=== PATIENT | male | born 1940 | race Caucasian/White ===

== ENCOUNTER → 2017-04-10 12:15 | Outpatient (REF) | payer MEDICARE, SELFPAY ==
[2017-04-11 07:21] LABS: Hematocrit 41.6 % (40-54); Mean Corp Hgb Conc 33.7 g/gl (32-36); Mean Corpuscular Hgb 32.6 pg (27.0-32.0); Mean Corpuscular Volume 96.7 fL (80-94); Mean Platelet Vol. 9.9 fl (6.2-12.0); Platelet Count 161 K/mm3 (150-450); RBC Distribution Width CV 12.8 % (11.6-14.6); RBC Distribution Width SD 44.4 fl (35.1-43.9); White Blood Count 6.6 K/mm3 (4.4-11.0)
[2017-04-11 07:22] LABS: Scan Indicated on CBC? Y/N NO
[2017-04-11 07:42] LABS: ALB/GLOB Ratio 1.1 RATIO (0.9-2.4); AST(SGOT) 18 U/L (15-37); Alanine Aminotransfer ALT/SGPT 24 U/L (12-78); Albumin, Serum 3.2 g/dL (3.4-5.0); Alkaline Phosphatase 109 U/L (45-117); Anion Gap 10 (5-15); BUN 11 mg/dL (7-18); BUN/Creat Ratio 10.7 RATIO (10-20); Calcium,Total 9.5 mg/dL (8.5-10.1); Chloride 100 mmol/L (98-107); Creatinine, Serum 1.03 mg/dL (0.70-1.30); EST Glomerular Filtration Rate 74 mL/min (>60); Est Glom Filt Rate - Afr Amer 90 mL/min (>60); Glucose 87 mg/dL (70-110); Potassium 3.6 mmol/L (3.5-5.1); Protein, Total 6.2 g/dL (6.4-8.2); Sodium Level 140 mmol/L (136-145)
[2017-04-11 07:47] LABS: Phenytoin (Dilantin) Level 11.7 mL (10.0-20.0)
== END ==
LOC: OLS.ACH 12:15
PROVIDERS: Visit Provider Family Medicine
DX: R53.1 Weakness (principal); N18.3 Chronic kidney disease, stage 3 (moderate); G40.909 Epilepsy, unspecified, not intractable, without status epilepticus; I12.9 Hypertensive chronic kidney disease with stage 1 through stage 4 chronic kidney disease, or unspecified chronic kidney disease
CPT/HCPCS: 36415; 80053; 80185; 85027

== ENCOUNTER → 2017-05-07 05:00 | Outpatient (REF) | payer MEDICARE, OTHER, SELFPAY ==
[2017-05-07 08:58] LABS: Absolute Lymphocyte Count 1.09 X10^3/ul (0.83-4.51); Absolute Neutrophil Count 2.3 X10^3/uL (2.0-7.7); Basophil# 0.02 X10^3/uL; Basophil% 0.5 % (0-1); Eosinophils% 2.4 % (0-5); Hematocrit 40.4 % (40-54); Hemoglobin 13.5 g/dl (13.0-16.5); Lymphocyte # 1.09 X10^3/ul (4.0); Lymphocyte % 25.8 % (19-41); Mean Corp Hgb Conc 33.4 g/gl (32-36); Mean Corpuscular Hgb 32.4 pg (27.0-32.0); Mean Corpuscular Volume 96.9 fL (80-94); Mean Platelet Vol. 10.1 fl (6.2-12.0); Monocyte# 0.75 X10^3/uL; Monocyte% 17.8 % (0-10); Neutrophil # 2.26 X10^3/uL (2.7-7.7); Neutrophil % 53.5 % (47-70); Platelet Count 132 K/mm3 (150-450); RBC Distribution Width CV 13.1 % (11.6-14.6); RBC Distribution Width SD 45.8 fl (35.1-43.9); Red Blood Count 4.17 M/mm3 (4.6-6.2); White Blood Count 4.2 K/mm3 (4.4-11.0)
[2017-05-07 08:59] LABS: POSITIVE COUNT NO; POSITIVE DIFFERENTIAL NO; POSITIVE MORPHOLOGY NO
[2017-05-07 09:00] LABS: ALB/GLOB Ratio 0.8 RATIO (0.9-2.4); AST(SGOT) 39 U/L (15-37); Alanine Aminotransfer ALT/SGPT 24 U/L (12-78); Albumin, Serum 2.8 g/dL (3.4-5.0); Alkaline Phosphatase 87 U/L (45-117); Anion Gap 8 (5-15); BUN 10 mg/dL (7-18); BUN/Creat Ratio 10.9 RATIO (10-20); Calcium,Total 9.3 mg/dL (8.5-10.1); Chloride 99 mmol/L (98-107); Creatinine, Serum 0.92 mg/dL (0.70-1.30); EST Glomerular Filtration Rate 85 mL/min (>60); Est Glom Filt Rate - Afr Amer 102 mL/min (>60); Globulin 3.4 g/dL (2.2-4.2); Glucose 65 mg/dL (70-110); Potassium 3.4 mmol/L (3.5-5.1); Protein, Total 6.2 g/dL (6.4-8.2); Sodium Level 138 mmol/L (136-145)
== END ==
LOC: OLS.ACH 05:00
PROVIDERS: Visit Provider Family Medicine
DX: Q28.2 Arteriovenous malformation of cerebral vessels (principal)
CPT/HCPCS: 36415; 80053; 85025

== ENCOUNTER → 2017-05-07 16:00 | Outpatient (REF) | payer MEDICARE, SELFPAY | LOC: OLS.ACH 16:00 | PROVIDERS: Visit Provider Family Medicine | DX: R53.81 Other malaise (principal) | CPT/HCPCS: 87804 ==

== ENCOUNTER → 2017-10-08 05:00 | Outpatient (REF) | payer MEDICARE, OTHER, SELFPAY ==
[2017-10-08 08:26] LABS: Hematocrit 41.2 % (40-54); Hemoglobin 13.8 g/dl (13.0-16.5); Mean Corp Hgb Conc 33.5 g/gl (32-36); Mean Corpuscular Hgb 32.8 pg (27.0-32.0); Mean Corpuscular Volume 97.9 fL (80-94); Mean Platelet Vol. 9.8 fl (6.2-12.0); Platelet Count 198 K/mm3 (150-450); RBC Distribution Width CV 13.3 % (11.6-14.6); RBC Distribution Width SD 46.6 fl (35.1-43.9); Red Blood Count 4.21 M/mm3 (4.6-6.2); Scan Indicated on CBC? Y/N NO; White Blood Count 5.6 K/mm3 (4.4-11.0)
[2017-10-08 08:56] LABS: ALB/GLOB Ratio 0.9 RATIO (0.9-2.4); AST(SGOT) 19 U/L (15-37); Alanine Aminotransfer ALT/SGPT 18 U/L (16-61); Alkaline Phosphatase 122 U/L (45-117); Anion Gap 10 (5-15); BUN 19 mg/dL (7-18); BUN/Creat Ratio 16.7 RATIO (10-20); Calcium,Total 9.1 mg/dL (8.5-10.1); Chloride 103 mmol/L (98-107); Creatinine, Serum 1.14 mg/dL (0.70-1.30); EST Glomerular Filtration Rate 66 mL/min (>60); Est Glom Filt Rate - Afr Amer 80 mL/min (>60); Globulin 3.4 g/dL (2.2-4.2); Glucose 88 mg/dL (74-106); Potassium 3.8 mmol/L (3.5-5.1); Protein, Total 6.4 g/dL (6.4-8.2); Sodium Level 143 mmol/L (136-145)
[2017-10-08 09:00] LABS: Phenytoin (Dilantin) Level 9.1 mL (10.0-20.0)
== END ==
LOC: OLS.ACH 05:00
PROVIDERS: Visit Provider Family Medicine
DX: G40.909 Epilepsy, unspecified, not intractable, without status epilepticus (principal); R53.1 Weakness; N18.3 Chronic kidney disease, stage 3 (moderate); I21.9 Acute myocardial infarction, unspecified
CPT/HCPCS: 36415; 80053; 80185; 85027

== ENCOUNTER → 2018-04-08 05:00 | Outpatient (REF) | payer MEDICARE, OTHER, SELFPAY ==
[2018-04-08 07:45] LABS: Hematocrit 38.6 % (40-54); Hemoglobin 13.4 g/dl (13.0-16.5); Mean Corp Hgb Conc 34.7 g/gl (32-36); Mean Corpuscular Hgb 32.4 pg (27.0-32.0); Mean Corpuscular Volume 93.5 fL (80-94); Mean Platelet Vol. 10.4 fl (6.2-12.0); Platelet Count 218 K/mm3 (150-450); RBC Distribution Width CV 12.1 % (11.6-14.6); RBC Distribution Width SD 40.4 fl (35.1-43.9); Red Blood Count 4.13 M/mm3 (4.6-6.2); White Blood Count 6.1 K/mm3 (4.4-11.0)
[2018-04-08 07:48] LABS: Scan Indicated on CBC? Y/N NO
[2018-04-08 08:06] LABS: AST(SGOT) 20 U/L (15-37); Alanine Aminotransfer ALT/SGPT 25 U/L (16-61); Albumin, Serum 3.1 g/dL (3.2-5.0); Alkaline Phosphatase 133 U/L (45-117); Anion Gap 7 (5-15); BUN 12 mg/dL (7-18); BUN/Creat Ratio 13.7 RATIO (10-20); Calcium,Total 8.9 mg/dL (8.5-10.1); Chloride 97 mmol/L (98-107); Creatinine, Serum 0.88 mg/dL (0.70-1.30); EST Glomerular Filtration Rate 89 mL/min (>60); Est Glom Filt Rate - Afr Amer 108 mL/min (>60); Glucose 80 mg/dL (74-106); Potassium 3.4 mmol/L (3.5-5.1); Protein, Total 6.1 g/dL (6.4-8.2); Sodium Level 133 mmol/L (136-145)
[2018-04-08 08:25] LABS: Phenytoin (Dilantin) Level 9.8 mL (10.0-20.0)
[2018-04-10 19:48] LABS: KEPPRA (LEVETIRACETAM) 14.8 ug/mL (10.0-40.0)
== END ==
LOC: OLS.ACH 05:00
PROVIDERS: Visit Provider Family Medicine
DX: G40.909 Epilepsy, unspecified, not intractable, without status epilepticus (principal); R53.1 Weakness; I12.9 Hypertensive chronic kidney disease with stage 1 through stage 4 chronic kidney disease, or unspecified chronic kidney disease; N18.3 Chronic kidney disease, stage 3 (moderate)
CPT/HCPCS: 36415; 80053; 80177; 80185; 85027

== ENCOUNTER → 2018-04-15 05:00 | Outpatient (REF) | payer MEDICARE, OTHER, SELFPAY ==
[2018-04-15 07:56] LABS: Phenytoin (Dilantin) Level 18.2 mL (10.0-20.0)
== END ==
LOC: OLS.ACH 05:00
PROVIDERS: Visit Provider Family Medicine
DX: G40.909 Epilepsy, unspecified, not intractable, without status epilepticus (principal)
CPT/HCPCS: 36415; 80185

== ENCOUNTER 2018-05-13 14:55 | Emergency (ER) | payer MEDICARE, OTHER, MEDICAID, SELFPAY ==
[2018-05-13 14:57] VITALS: BP 162/88; PULSE 81; RESP 17; TEMP 36.1; O2SAT 98; BMI 31.1
--- NOTE | 2018-05-13 15:28 | EKG12_ITS ---
Test Reason : NEURO SYM Blood Pressure : / mmHG Vent. Rate : 073 BPM Atrial Rate : 073 BPM P-R Int : 172 ms QRS Dur : 108 ms QT Int : 392 ms P-R-T Axes : 047 062 054 degrees QTc Int : 431 ms Normal sinus rhythm Normal ECG Confirmed by NILES MONTERO ([id number]), slot editor EUGENIA CASE ([id number]) on 05/27/2018 1:17:56 PM Referred By: MERCEDES Confirmed By:NILES MONTERO
--- NOTE | 2018-05-13 15:28 | CT_ITS ---
STUDY: CT BRAIN WITHOUT CONTRAST REASON FOR EXAM: Male, 78 years old. Weakness RADIATION DOSAGE (If Supplied By Facility): CTDIvol = ( 44.99 ) mGy, DLP = ( 829.85 ) mGycm TECHNIQUE: Transaxial CT imaging of the brain was performed without administration of intravenous contrast material. Individualized dose optimization techniques were used for this CT. COMPARISON: 08/26/2016 FINDINGS: There are stable post surgical changes from a prior craniotomy. 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 There is no acute bleed or infarct. The visualized paranasal sinuses are clear. The mastoid air cells are well aerated. There is no skull fracture. CT/Brain/Head without Contrast IMPRESSION: No acute bleed or infarct. 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 Electronically Signed: Patel Mar, at 17:10 EST Tel , Service support ,
[2018-05-13 15:33] VITALS: O2SAT 98
--- NOTE | 2018-05-13 15:35 | ED.DCSUM_ITS ---
History of Present Illness Chief Complaint: Neuro S/Sx Informant: Patient, Family, SNF Narrative: Patient sent from [facility], nursing report reflects 2 days of worsening weakness in the right lower extremity, there is 0 paperwork sent with the patient indicating any of this, family/ and patient agree that his right lower extremity has been weaker than normal for at least 2 weeks and he has been having double vision off and on for at least a month. She states 3 days ago, he was really having difficulty getting in and out of a vehicle with her. He states he was having trouble walking because of his right lower extremity today, and that is not new. He denies any new symptoms today that he can think of. states she is concerned about his diet and fluid intake recently, and they both agree that he thinks he has felt this way when his Dilantin level was high in the past. His dose was increased about 3 weeks ago because he was having some seizures. He denies having any since then, that he knows of. Denies any recent head injury or pain anywhere. Prior similar symptoms: Yes - Past Medical History (1) BPH (benign prostatic hyperplasia) Status: Chronic (2) Benign essential HTN Status: Chronic (3) Bipolar disorder Status: Chronic (4) CKD (chronic kidney disease), stage III Status: Chronic (5) Encephalomalacia Status: Chronic (6) HLD (hyperlipidemia) Status: Chronic (7) Seizure disorder Status: Chronic (8) status post AVM removed in 1980 Status: Chronic Past Medical History - Allergies and Home Meds Allergies/Adverse Reactions: Allergies No Known Allergies Allergy (Verified 05/13/18 15:03) Primary Care Physician: Steven Mccauley MD [NON-STAFF] - Surgical History: appendectomy, herniorrhaphy, - - 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 Denies: Chills, Fever, Sweats Eyes: Reports: Diplopia - off and on x 1 month or so. Denies: Blurred Vision - bilaterally ENT: Denies: Bilateral ear pain, Rhinorrhea, Sore throat Cardiovascular: Denies: Chest pain, Palpitations, Heart racing Respiratory: Reports: Cough - chronic, unchanged. Denies: Dyspnea, Sputum, Dyspnea on exertion, Orthopnea, Paroxysmal nocturnal dyspnea Gastrointestinal: Denies: Abdominal pain, Nausea, Vomiting, Diarrhea, Melena, Hematochezia Genitourinary: Denies: Dysuria, Hematuria, Frequency Musculoskeletal: Denies: Neck pain, Back pain, Extremity Pain Skin: Denies: Rash, Abscess, Wounds Neurological: Reports: Weakness - RLE acute on chronic, - - slurred speech per x days at least -- unk amt time for sure. Denies: Headache, Parasthesia, Numbness Psych: Denies: Suicidal thoughts, Suicidal ideations Endocrine: Denies: Heat intolerance, Cold intolerance Hematologic: Denies: Easy bruising, Easy bleeding Allergy: Denies: Swelling of the mouth, Swelling of the tongue Physical Exam Vital Signs/Narrative: Vital Signs Temp Pulse Resp BP Pulse Ox 05/13/18 14:57 96.9 F L 81 17 162/88 H 98 Inital Vital Signs reviewed: Yes General: Well nourished, Well developed Head: Normocephalic, Atraumatic Eyes: Perrl, EOMI ENT: Moist mucous membranes, No rhinorrhea Neck: Supple, Nontender, No JVD, - - no carotid bruits Cardiovascular: Regular rate, Regular rhythm, No murmurs Respiratory: No distress, CTA bilaterally, Chest nontender Abdomen: Soft, Nontender, Nondistended, Normal bowel sounds Back: Nontender, Normal Inspection Extremities: Nontender, No edema Skin: Normal color, No rash Neurological: Alert, Oriented x3 - needs help/redirection, but knows it is the 12th month and one day away from [place], of year 18, Cranial nerves II- XII grossly intact - no deficits on detailed CN exam., Normal Sensation, Weakness - drift w/ RLE only; 5/5 strength all 3 other ext's. wearing foot-drop brace on RLE. Psychological: Normal affect Diagnostic/Tx/Re-eval Impressions Brain CT 05/13/18 15:28 IMPRESSION: No acute bleed or infarct. 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 Electronically Signed: Patel Mar, at 17:10 EST Tel , Service support , Chest X-Ray 05/13/18 16:24 IMPRESSION: Normal x-ray examination of the chest. Electronically Signed: Niels CameronDO at 17:19 EST Tel , Service support , 05/13/18 15:28 Brain/Head without Contrast [CT] Stat 05/13/18 16:24 Chest PA and Lateral [RAD] Stat Laboratory Results 05/13/18 05/13/18 05/13/18 15:50 15:50 15:50 WBC 5.9 RBC 4.53 L Hgb 14.6 Hct 43.1 MCV 95.1 H MCH 32.2 H MCHC 33.9 RDW 12.9 RDW Differential 44.9 H Plt Count 200 MPV 9.4 Immature Gran % (Auto) 0.000 Neut % (Auto) 60.3 Lymph % (Auto) 24.4 [place] % (Auto) 13.2 H Eos % (Auto) 1.9 Baso % (Auto) 0.2 Absolute Neuts (auto) 3.6 Absolute Lymphs (auto) 1.44 Total Counted Not Reportable Sodium 134 L Potassium 4.2 Chloride 96 L Carbon Dioxide 30.0 Anion Gap 8 BUN 20 H Creatinine 1.02 Estim Creat Clear Calc 57.75 Est GFR (MDRD) Af Amer 91 Est GFR (MDRD) Non-Af 75 BUN/Creatinine Ratio 19.6 Glucose 103 Calcium 9.9 Total Bilirubin Direct Bilirubin AST ALT Alkaline Phosphatase Troponin I < 0.015 Total Protein Albumin Globulin Urine Color Urine Clarity Urine pH Ur Specific [place] Urine Protein Urine Glucose (UA) Urine Ketones Urine Occult Blood Urine Nitrite Urine Bilirubin Urine Urobilinogen Ur Leukocyte Esterase Urine RBC Urine WBC Ur Squamous Epith Cells Urine Bacteria Urine Mucus Phenytoin 30.9 H* 05/13/18 05/13/18 15:59 18:15 WBC RBC Hgb Hct MCV MCH MCHC RDW RDW Differential Plt Count MPV Immature Gran % (Auto) Neut % (Auto) Lymph % (Auto) [place] % (Auto) Eos % (Auto) Baso % (Auto) Absolute Neuts (auto) Absolute Lymphs (auto) Total Counted Sodium Potassium Chloride Carbon Dioxide Anion Gap BUN Creatinine Estim Creat Clear Calc Est GFR (MDRD) Af Amer Est GFR (MDRD) Non-Af BUN/Creatinine Ratio Glucose Calcium Total Bilirubin 0.30 Direct Bilirubin 0.12 AST 40 H ALT 12 L Alkaline Phosphatase 168 H Troponin I Total Protein 7.4 Albumin 3.6 Globulin 3.8 Urine Color Yellow Urine Clarity Sl. Cloudy Urine pH 6.0 Ur Specific [place] 1.010 Urine Protein Negative Urine Glucose (UA) Normal Urine Ketones Negative Urine Occult Blood 10 H Urine Nitrite Negative Urine Bilirubin Negative Urine Urobilinogen Normal Ur Leukocyte Esterase 500 H Urine RBC 0 SEEN Urine WBC 50-100 SEEN Ur Squamous Epith Cells 0-5 SEEN Urine Bacteria 0 SEEN Urine Mucus 0 SEEN Phenytoin - Rhythm Strip Rhythm Strip: Sinus Rhythm Rate: 75 Ectopy: None - EKG Initial EKG Interpretation: Sinus Rhythm, No Acute Injury Pattern - Medical Decision Making Labs show very high phenytoin level of 30.9, and given the history, is consistent with relatively chronic toxicity as opposed to acute. He has symptoms of this, but does not have any life-threatening complications evident at this time. There have been no dysrhythmias, hemodynamic instability, altered mental status, severe ataxia, coma, or known seizures. Chest x-ray and CT head showed no acute disease. Discussed with neurology Dr. Mosquera. He advised adding a free phenytoin level as well as LFTs. These were sent, the LFTs were okay with very minor elevations that could be unrelated, the free phenytoin level is a send out and will not come back tonight. The patient was stable here. Urine does show infection, so he was given a dose of Rocephin and that was sent for a culture. I discussed with Dr. Henry who will be taken over for the patient, who is okay with him going back and asked that we write an order for the repeat labs in 3 days, I also wrote prescriptions for the medication changes that we are doing, per neurology, which include halving the phenytoin dosing which may be restarted after the repeat levels are done in 3 days given that the LFTs look okay, and increasing his Keppra from 500 twice daily to 750 twice daily to help prevent him from having seizures. Also adding cephalexin for his urine infection, which could be causing his symptoms or at least contributing as well. Family is comfortable with this plan and he will be discharged back to the skilled nursing. ED Disposition - Plan for ED Patient: Disposition: Home or Assisted Living Chief Complaint: Neuro S/Sx Diagnosis: Phenytoin toxicity, UTI (urinary tract infection) Instructions: ED UTI Cystitis Male Prescriptions: Cephalexin [Keflex] 500 mg PO Q8 #30 capsule Phenytoin [Dilantin] 50 mg PO UD #50 tab.chew Levetiracetam [Keppra] 750 mg PO BID #60 tablet Referrals: Zak Henry MD [Primary Care Provider] - (1-3 days) Additional Instructions: -Your total phenytoin level is 30.9. A free phenytoin level is sent and pending, and will not result tonight. It will need to be checked by the covering physician. -Your phenytoin should not be given/taken for the next 3 days, until your blood work is repeated at that time. Then, it is to be restarted at half-dose -- 150mg every morning, and then 100mg at night. -Your Keppra dose is increased to 750 mg twice daily (w/ new prescription sent) to keep you from having seizures while not taking the phenytoin. -Your urine appears infected today and a culture is sent and pending, results should be available in 2-3 days. You are being prescribed an antibiotic to take for that.
[2018-05-13 15:49] VITALS: BP 109/74; PULSE 66; RESP 16; O2SAT 96
[2018-05-13] MEDS: 0.9% Normal Saline 1,000 ML 150 ML IV (15:54)
[2018-05-13 16:04] LABS: Absolute Lymphocyte Count 1.44 X10^3/ul (0.83-4.51); Absolute Neutrophil Count 3.6 X10^3/uL (2.0-7.7); Basophil# 0.01 X10^3/uL; Basophil% 0.2 % (0-1); Eosinophil# 0.11 X10^3/uL; Eosinophils% 1.9 % (0-5); Hematocrit 43.1 % (40-54); Hemoglobin 14.6 g/dl (13.0-16.5); Lymphocyte # 1.44 X10^3/ul (4.0); Lymphocyte % 24.4 % (19-41); Mean Corp Hgb Conc 33.9 g/gl (32-36); Mean Corpuscular Hgb 32.2 pg (27.0-32.0); Mean Corpuscular Volume 95.1 fL (80-94); Mean Platelet Vol. 9.4 fl (6.2-12.0); Monocyte# 0.78 X10^3/uL; Monocyte% 13.2 % (0-10); Neutrophil # 3.57 X10^3/uL (2.7-7.7); Neutrophil % 60.3 % (47-70); Platelet Count 200 K/mm3 (150-450); RBC Distribution Width CV 12.9 % (11.6-14.6); RBC Distribution Width SD 44.9 fl (35.1-43.9); Red Blood Count 4.53 M/mm3 (4.6-6.2); White Blood Count 5.9 K/mm3 (4.4-11.0)
[2018-05-13 16:12] LABS: POSITIVE COUNT NO; POSITIVE DIFFERENTIAL NO; POSITIVE MORPHOLOGY NO
--- NOTE | 2018-05-13 16:24 | RAD_ITS ---
STUDY: X-RAY CHEST REASON FOR EXAM: Male, 78 years old. Right-sided weakness TECHNIQUE: PA and lateral views of the chest. COMPARISON: 08/25/2016 FINDINGS: The lungs are clear and expanded. There is no demonstrated pleural abnormality. Normal size heart. Normal mediastinum and maico. Normal visualized pulmonary arteries. Normal visualized aortic arch and descending thoracic aorta. Normal visualized thoracic spine. Normal visualized ribs, clavicles, and shoulders. There is no demonstrated abnormality of the visualized soft tissue structures of the upper abdomen. RAD/Chest PA and Lateral IMPRESSION: Normal x-ray examination of the chest. Electronically Signed: Niels Cameron DO at 17:19 EST Tel , Service support ,
[2018-05-13 16:25] LABS: Anion Gap 8 (5-15); BUN 20 mg/dL (7-18); BUN/Creat Ratio 19.6 RATIO (10-20); Calcium,Total 9.9 mg/dL (8.5-10.1); Chloride 96 mmol/L (98-107); Creatinine, Serum 1.02 mg/dL (0.70-1.30); EST Glomerular Filtration Rate 75 mL/min (>60); Est Glom Filt Rate - Afr Amer 91 mL/min (>60); Estimated Creatinine Clearance 57.75 ml/min; Glucose 103 mg/dL (74-106); Potassium 4.2 mmol/L (3.5-5.1); Sodium Level 134 mmol/L (136-145)
[2018-05-13 16:51] LABS: Phenytoin (Dilantin) Level 30.9 mL (10.0-20.0)
--- NOTE | 2018-05-13 16:53 | ED.RN ---
Critical Phenytoin 30.[address] Pineda notified.
[2018-05-13 17:03] VITALS: BP 127/64; PULSE 75; RESP 12; O2SAT 98
[2018-05-13 18:19] LABS: Bacteria 0 SEEN /hpf (None Seen); Mucous, Urine 0 SEEN /hpf (<or=2+); Red Blood Cells-Urine 0 SEEN /hpf (0-5)
[2018-05-13 18:23] LABS: Color, Urine Yellow (Yellow); Glucose, Dipstick Normal (Normal); Ketone-Dipstick Negative (Negative); Leukocyte Esterase-Dipstick 500 /ul (Negative); Nitrite-Dipstick Negative (Negative); Occult Blood-Urine 10 /ul (Negative); Protein-Dipstick Negative (Negative); Urine Bilirubin Dipstick Negative (Negative); Urine Clarity Sl. Cloudy (Clear); Urine Urobilinogen Normal (Normal)
[2018-05-13 18:29] LABS: Squamous Epithelial Cells - UA 0-5 SEEN /hpf (0-5)
[2018-05-13 18:30] LABS: White Blood Cells 50-100 SEEN /hpf (0-5)
[2018-05-13 18:30] LABS: AST(SGOT) 40 U/L (15-37); Alanine Aminotransfer ALT/SGPT 12 U/L (16-61); Albumin, Serum 3.6 g/dL (3.2-5.0); Alkaline Phosphatase 168 U/L (45-117); Bilirubin, Direct 0.12 mg/dL (0.00-0.30); Globulin 3.8 g/dL (2.2-4.2); Protein, Total 7.4 g/dL (6.4-8.2)
[2018-05-13 19:00] VITALS: BP 141/84; PULSE 70; RESP 12; O2SAT 98
[2018-05-13] MEDS: Ceftriaxone 1 GM/50 ML BAG IV (19:43)
[2018-05-13 20:21] VITALS: BP 158/75; PULSE 69; RESP 16; O2SAT 97
--- NOTE | 2018-05-13 20:31 | ED.RN ---
REPORT CALLED TO THE [facility] REGARDING HOLDING THE DILANTIN AND THE UTI.
== END 2018-05-13 20:44 | disposition home or self-care (01) ==
PROVIDERS: Emergency Provider Emergency Medicine; Family Provider Family Medicine; PCP Family Medicine
DX: M62.81 Muscle weakness (generalized) (principal); T42.0X5A Adverse effect of hydantoin derivatives, initial encounter; Y92.129 Unspecified place in nursing home as the place of occurrence of the external cause; N39.0 Urinary tract infection, site not specified; G40.909 Epilepsy, unspecified, not intractable, without status epilepticus; G93.89 Other specified disorders of brain; I12.9 Hypertensive chronic kidney disease with stage 1 through stage 4 chronic kidney disease, or unspecified chronic kidney disease; N18.3 Chronic kidney disease, stage 3 (moderate); F31.9 Bipolar disorder, unspecified; E78.5 Hyperlipidemia, unspecified; N40.0 Benign prostatic hyperplasia without lower urinary tract symptoms; Z87.798 Personal history of other (corrected) congenital malformations; Z79.82 Long term (current) use of aspirin; Z79.899 Other long term (current) drug therapy
CPT/HCPCS: 70450; 71046; 80048; 80076; 80185; 80186; 81001; 84484; 85025; 87077; 87086; 87088; 87186; 93005; 96365; 99284; J7030

== ENCOUNTER → 2018-05-16 04:00 | Outpatient (REF) | payer MEDICARE, OTHER, MEDICAID, SELFPAY ==
[2018-05-13 14:57] VITALS: BMI 31.1
[2018-05-16 07:36] LABS: Phenytoin (Dilantin) Level 19.6 mL (10.0-20.0)
[2018-05-16 07:37] LABS: AST(SGOT) 23 U/L (15-37); Alanine Aminotransfer ALT/SGPT 22 U/L (16-61); Alkaline Phosphatase 113 U/L (45-117); Bilirubin, Direct 0.11 mg/dL (0.00-0.30); Globulin 3.2 g/dL (2.2-4.2); Protein, Total 6.2 g/dL (6.4-8.2)
== END ==
LOC: OLS.ACH 04:00
PROVIDERS: Visit Provider Family Medicine
DX: G40.909 Epilepsy, unspecified, not intractable, without status epilepticus (principal); R89.2 Abnormal level of other drugs, medicaments and biological substances in specimens from other organs, systems and tissues
CPT/HCPCS: 36415; 80076; 80185

== ENCOUNTER → 2018-05-27 01:30 | Outpatient (REF) | payer MEDICARE, OTHER, SELFPAY ==
[2018-05-13 14:57] VITALS: BMI 31.1
[2018-05-27 08:14] LABS: Color, Urine Yellow (Yellow); Glucose, Dipstick Normal (Normal); Ketone-Dipstick Negative (Negative); Leukocyte Esterase-Dipstick Negative /ul (Negative); Nitrite-Dipstick Negative (Negative); Occult Blood-Urine Negative /ul (Negative); Protein-Dipstick Negative (Negative); Specific Gravity, Urine 1.015 (1.002-1.030); Urine Bilirubin Dipstick Negative (Negative); Urine Clarity Clear (Clear); Urine Urobilinogen Normal (Normal)
== END ==
LOC: OLS.ACH 01:30
PROVIDERS: Visit Provider Family Medicine
DX: N39.0 Urinary tract infection, site not specified (principal)
CPT/HCPCS: 81002; 87086

== ENCOUNTER → 2018-10-07 04:00 | Outpatient (REF) | payer MEDICARE, OTHER, SELFPAY ==
[2018-10-07 07:09] LABS: Hematocrit 37.8 % (40-54); Hemoglobin 13.2 g/dl (13.0-16.5); Mean Corp Hgb Conc 34.9 g/gl (32-36); Mean Corpuscular Volume 91.7 fL (80-94); Platelet Count 195 K/mm3 (150-450); RBC Distribution Width CV 12.4 % (11.6-14.6); RBC Distribution Width SD 41.7 fl (35.1-43.9); Red Blood Count 4.12 M/mm3 (4.6-6.2); White Blood Count 6.3 K/mm3 (4.4-11.0)
[2018-10-07 07:15] LABS: Scan Indicated on CBC? Y/N NO
[2018-10-07 07:20] LABS: ALB/GLOB Ratio 0.8 RATIO (0.9-2.4); AST(SGOT) 26 U/L (15-37); Alanine Aminotransfer ALT/SGPT 24 U/L (16-61); Albumin, Serum 2.9 g/dL (3.2-5.0); Alkaline Phosphatase 132 U/L (45-117); Anion Gap 6 (5-15); BUN 10 mg/dL (7-18); BUN/Creat Ratio 12.1 RATIO (10-20); Calcium,Total 9.2 mg/dL (8.5-10.1); Chloride 95 mmol/L (98-107); Cholesterol 116 mg/dL (200); Creatinine, Serum 0.83 mg/dL (0.70-1.30); EST Glomerular Filtration Rate 95 mL/min (>60); Est Glom Filt Rate - Afr Amer 115 mL/min (>60); Globulin 3.6 g/dL (2.2-4.2); Glucose 86 mg/dL (74-106); High Density Lipoprotein 57 mg/dL; Potassium 3.3 mmol/L (3.5-5.1); Protein, Total 6.5 g/dL (6.4-8.2); Sodium Level 131 mmol/L (136-145); Triglycerides 51 mg/dL; Very Low Density Lipoprotein 10 mg/dL (5-40)
[2018-10-07 07:51] LABS: Phenytoin (Dilantin) Level 12.9 mL (10.0-20.0)
[2018-10-07 10:56] LABS: Vitamin D,25 Hydroxy 49.7 ng/mL (29.95-100.01)
== END ==
LOC: OLS.ACH 04:00
PROVIDERS: Visit Provider Family Medicine
DX: G40.909 Epilepsy, unspecified, not intractable, without status epilepticus (principal); I12.9 Hypertensive chronic kidney disease with stage 1 through stage 4 chronic kidney disease, or unspecified chronic kidney disease; E78.5 Hyperlipidemia, unspecified; M48.061 Spinal stenosis, lumbar region without neurogenic claudication
CPT/HCPCS: 36415; 80053; 80061; 80177; 80185; 82306; 85027

== ENCOUNTER → 2018-11-27 15:44 | Outpatient (CLI) | payer MEDICARE, OTHER, SELFPAY ==
[2018-11-27 17:39] LABS: Absolute Lymphocyte Count 1.41 X10^3/ul (0.83-4.51); Absolute Neutrophil Count 4.2 X10^3/uL (2.0-7.7); Basophil# 0.01 X10^3/uL; Basophil% 0.2 % (0-1); Eosinophil# 0.13 X10^3/uL; Eosinophils% 2.1 % (0-5); Hematocrit 41.6 % (40-54); Hemoglobin 14.4 g/dl (13.0-16.5); Lymphocyte # 1.41 X10^3/ul (4.0); Lymphocyte % 22.2 % (19-41); Mean Corp Hgb Conc 34.6 g/gl (32-36); Mean Corpuscular Hgb 32.2 pg (27.0-32.0); Mean Corpuscular Volume 93.1 fL (80-94); Mean Platelet Vol. 9.7 fl (6.2-12.0); Monocyte# 0.62 X10^3/uL; Monocyte% 9.8 % (0-10); Neutrophil # 4.17 X10^3/uL (2.7-7.7); Neutrophil % 65.7 % (47-70); Platelet Count 209 K/mm3 (150-450); RBC Distribution Width CV 12.9 % (11.6-14.6); RBC Distribution Width SD 43.8 fl (35.1-43.9); Red Blood Count 4.47 M/mm3 (4.6-6.2); White Blood Count 6.3 K/mm3 (4.4-11.0)
[2018-11-27 17:40] LABS: POSITIVE COUNT NO; POSITIVE DIFFERENTIAL NO; POSITIVE MORPHOLOGY NO
[2018-11-27 17:57] LABS: Phenytoin (Dilantin) Level 19.2 mL (10.0-20.0)
[2018-11-27 18:32] LABS: ALB/GLOB Ratio 0.9 RATIO (0.9-2.4); AST(SGOT) 25 U/L (15-37); Alanine Aminotransfer ALT/SGPT 11 U/L (16-61); Albumin, Serum 3.6 g/dL (3.2-5.0); Alkaline Phosphatase 148 U/L (45-117); Anion Gap 6 (5-15); BUN 16 mg/dL (7-18); BUN/Creat Ratio 16.1 RATIO (10-20); Bilirubin, Direct 0.06 mg/dL (0.00-0.30); Calcium,Total 9.9 mg/dL (8.5-10.1); Chloride 94 mmol/L (98-107); Creatinine, Serum 0.99 mg/dL (0.70-1.30); EST Glomerular Filtration Rate 77 mL/min (>60); Est Glom Filt Rate - Afr Amer 93 mL/min (>60); Globulin 3.8 g/dL (2.2-4.2); Glucose 107 mg/dL (74-106); Potassium 3.8 mmol/L (3.5-5.1); Protein, Total 7.4 g/dL (6.4-8.2); Sodium Level 131 mmol/L (136-145)
[2018-12-01 13:48] LABS: KEPPRA (LEVETIRACETAM) 29.2 ug/mL (10.0-40.0)
== END ==
PROVIDERS: Family Provider Family Medicine; PCP Family Medicine; Referring Provider Nurse Practitioner Family; Visit Provider Nurse Practitioner Family
DX: R56.9 Unspecified convulsions (principal); Z79.899 Other long term (current) drug therapy
CPT/HCPCS: 36415; 80053; 80177; 80185; 82248; 82746; 85025

== ENCOUNTER → 2019-02-28 01:00 | Outpatient (REF) | payer MEDICARE, OTHER, SELFPAY ==
[2019-02-28 07:51] LABS: Color, Urine Yellow (Yellow); Glucose, Dipstick Normal (Normal); Ketone-Dipstick Negative (Negative); Leukocyte Esterase-Dipstick 500 /ul (Negative); Nitrite-Dipstick Positive (Negative); Occult Blood-Urine 10 /ul (Negative); Protein-Dipstick Negative (Negative); Specific Gravity, Urine 1.005 (1.002-1.030); Urine Bilirubin Dipstick Negative (Negative); Urine Clarity Clear (Clear); Urine Urobilinogen Normal (Normal)
== END ==
LOC: OLS.ACH 01:00
PROVIDERS: Visit Provider Family Medicine
DX: R41.82 Altered mental status, unspecified (principal)
CPT/HCPCS: 81002; 87077; 87086; 87088; 87186

== ENCOUNTER → 2019-03-14 05:00 | Outpatient (REF) | payer MEDICARE, OTHER, SELFPAY ==
[2019-03-14 08:10] LABS: Color, Urine Yellow (Yellow); Glucose, Dipstick Normal (Normal); Ketone-Dipstick Negative (Negative); Leukocyte Esterase-Dipstick Negative /ul (Negative); Nitrite-Dipstick Negative (Negative); Occult Blood-Urine Negative /ul (Negative); Protein-Dipstick Negative (Negative); Urine Bilirubin Dipstick Negative (Negative); Urine Clarity Clear (Clear); Urine Urobilinogen Normal (Normal)
== END ==
LOC: OLS.ACH 05:00
PROVIDERS: Visit Provider Family Medicine
DX: N18.3 Chronic kidney disease, stage 3 (moderate) (principal); N40.0 Benign prostatic hyperplasia without lower urinary tract symptoms
CPT/HCPCS: 81002; 87077; 87086; 87088; 87186

== ENCOUNTER → 2019-03-15 06:50 | Outpatient (REF) | payer MEDICARE, OTHER, SELFPAY ==
[2019-03-15 09:28] LABS: Phenytoin (Dilantin) Level 20.7 mL (10.0-20.0)
== END ==
LOC: OLS.ACH 06:50
PROVIDERS: Visit Provider Family Medicine
DX: G40.909 Epilepsy, unspecified, not intractable, without status epilepticus (principal)
CPT/HCPCS: 36415; 80185

== ENCOUNTER → 2019-03-21 05:00 | Outpatient (REF) | payer MEDICARE, OTHER, SELFPAY | LOC: OLS.ACH 05:00 | PROVIDERS: Visit Provider Family Medicine | DX: G40.909 Epilepsy, unspecified, not intractable, without status epilepticus (principal) | CPT/HCPCS: 36415; 80185 ==

== ENCOUNTER → 2019-04-07 05:00 | Outpatient (REF) | payer MEDICARE, OTHER, SELFPAY ==
[2019-04-07 07:57] LABS: Hematocrit 38.1 % (40-54); Mean Corp Hgb Conc 34.1 g/dL (32-36); Mean Corpuscular Hgb 32.8 pg (27.0-32.0); Mean Corpuscular Volume 96.2 fL (80-94); Mean Platelet Vol. 9.8 fl (6.2-12.0); Platelet Count 193 K/mm3 (150-450); RBC Distribution Width CV 12.5 % (11.6-14.6); RBC Distribution Width SD 44.1 fl (35.1-43.9); Red Blood Count 3.96 M/mm3 (4.6-6.2); White Blood Count 5.7 K/mm3 (4.4-11.0)
[2019-04-07 08:18] LABS: ALB/GLOB Ratio 0.9 RATIO (0.9-2.4); AST(SGOT) 27 U/L (15-37); Alanine Aminotransfer ALT/SGPT 12 U/L (16-61); Alkaline Phosphatase 143 U/L (45-117); Anion Gap 8 (5-15); BUN 15 mg/dL (7-18); BUN/Creat Ratio 13.8 RATIO (10-20); Calcium,Total 9.2 mg/dL (8.5-10.1); Chloride 94 mmol/L (98-107); Creatinine, Serum 1.09 mg/dL (0.70-1.30); EST Glomerular Filtration Rate 69 mL/min (>60); Est Glom Filt Rate - Afr Amer 84 mL/min (>60); Globulin 3.4 g/dL (2.2-4.2); Glucose 85 mg/dL (74-106); Potassium 3.5 mmol/L (3.5-5.1); Protein, Total 6.4 g/dL (6.4-8.2); Sodium Level 134 mmol/L (136-145)
[2019-04-07 08:23] LABS: Phenytoin (Dilantin) Level 9.5 mL (10.0-20.0)
[2019-04-09 16:52] LABS: KEPPRA (LEVETIRACETAM) 25.4 ug/mL (10.0-40.0)
== END ==
LOC: OLS.ACH 05:00
PROVIDERS: Visit Provider Family Medicine
DX: G40.909 Epilepsy, unspecified, not intractable, without status epilepticus (principal); I12.9 Hypertensive chronic kidney disease with stage 1 through stage 4 chronic kidney disease, or unspecified chronic kidney disease; N18.9 Chronic kidney disease, unspecified
CPT/HCPCS: 36415; 80053; 80177; 80185; 85027

== ENCOUNTER → 2019-10-06 05:00 | Outpatient (REF) | payer MEDICARE, OTHER, MEDICAID, SELFPAY ==
[2019-10-06 09:49] LABS: Phenytoin (Dilantin) Level 9.4 mL (10.0-20.0)
[2019-10-06 09:59] LABS: AST(SGOT) 24 U/L (15-37); Alanine Aminotransfer ALT/SGPT 24 U/L (16-61); Alkaline Phosphatase 129 U/L (45-117); Anion Gap 7 (5-15); BUN 17 mg/dL (7-18); BUN/Creat Ratio 17.6 RATIO (10-20); Calcium,Total 9.1 mg/dL (8.5-10.1); Chloride 96 mmol/L (98-107); Cholesterol 120 mg/dL (200); Creatinine, Serum 0.96 mg/dL (0.70-1.30); EST Glomerular Filtration Rate 80 mL/min (>60); Est Glom Filt Rate - Afr Amer 97 mL/min (>60); Globulin 2.9 g/dL (2.2-4.2); Glucose 74 mg/dL (74-106); High Density Lipoprotein 66 mg/dL; Potassium 3.5 mmol/L (3.5-5.1); Protein, Total 5.9 g/dL (6.4-8.2); Sodium Level 133 mmol/L (136-145); Triglycerides 70 mg/dL; Very Low Density Lipoprotein 14 mg/dL (5-40)
[2019-10-06 10:08] LABS: Vitamin D,25 Hydroxy 45.8 ng/mL
[2019-10-06 10:14] LABS: Hematocrit 36.8 % (40-54); Hemoglobin 12.5 g/dL (13.0-16.5); Mean Corpuscular Hgb 32.6 pg (27.0-32.0); Mean Corpuscular Volume 95.8 fL (80-94); Mean Platelet Vol. 9.7 fl (6.2-12.0); Platelet Count 193 K/mm3 (150-450); RBC Distribution Width CV 12.3 % (11.6-14.6); RBC Distribution Width SD 42.7 fl (35.1-43.9); Red Blood Count 3.84 M/mm3 (4.6-6.2); White Blood Count 6.6 K/mm3 (4.4-11.0)
[2019-10-09 05:03] LABS: KEPPRA (LEVETIRACETAM) 29.3 ug/mL (10.0-40.0)
== END ==
LOC: OLS.ACH 05:00
PROVIDERS: PCP Family Medicine; Visit Provider Family Medicine
DX: G40.909 Epilepsy, unspecified, not intractable, without status epilepticus (principal); I12.9 Hypertensive chronic kidney disease with stage 1 through stage 4 chronic kidney disease, or unspecified chronic kidney disease; E78.5 Hyperlipidemia, unspecified; R53.1 Weakness; E83.52 Hypercalcemia
CPT/HCPCS: 36415; 80053; 80061; 80177; 80185; 82306; 85027

== ENCOUNTER → 2020-02-04 08:12 | Outpatient (REF) | payer MEDICARE, OTHER, MEDICAID, SELFPAY | LOC: OLS.ACH 08:12 | PROVIDERS: PCP Family Medicine; Visit Provider Family Medicine | DX: Z11.59 Encounter for screening for other viral diseases (principal) | CPT/HCPCS: 87635; U0003 ==

== ENCOUNTER → 2020-02-11 05:00 | Outpatient (REF) | payer MEDICARE, OTHER, MEDICAID, SELFPAY | LOC: OLS.ACH 05:00 | PROVIDERS: PCP Family Medicine; Visit Provider Family Medicine | DX: Z11.59 Encounter for screening for other viral diseases (principal) | CPT/HCPCS: 87635; U0003 ==

== ENCOUNTER → 2020-02-16 10:00 | Outpatient (REF) | payer MEDICARE, OTHER, MEDICAID, SELFPAY | LOC: OLS.ACH 10:00 | PROVIDERS: PCP Family Medicine; Referring Provider Family Medicine; Visit Provider Family Medicine | DX: Z11.59 Encounter for screening for other viral diseases (principal) | CPT/HCPCS: 87635; U0003 ==

== ENCOUNTER → 2020-02-20 13:38 | Outpatient (REF) | payer MEDICARE, OTHER, MEDICAID, SELFPAY | LOC: OLS.ACH 13:38 | PROVIDERS: PCP Family Medicine; Visit Provider Family Medicine | DX: Z03.818 Encounter for observation for suspected exposure to other biological agents ruled out (principal) | CPT/HCPCS: 87635; U0003 ==

== ENCOUNTER → 2020-02-23 08:00 | Outpatient (REF) | payer MEDICARE, OTHER, MEDICAID, SELFPAY | LOC: OLS.ACH 08:00 | PROVIDERS: Referring Provider Family Medicine; Visit Provider Family Medicine | DX: Z03.818 Encounter for observation for suspected exposure to other biological agents ruled out (principal) | CPT/HCPCS: 87635; U0003 ==

== ENCOUNTER → 2020-02-27 11:34 | Outpatient (REF) | payer MEDICARE, OTHER, MEDICAID, SELFPAY | LOC: OLS.ACH 11:34 | PROVIDERS: Visit Provider Family Medicine | DX: Z03.818 Encounter for observation for suspected exposure to other biological agents ruled out (principal) | CPT/HCPCS: 87635; U0003 ==

== ENCOUNTER → 2020-03-01 14:42 | Outpatient (REF) | payer MEDICARE, OTHER, MEDICAID, SELFPAY | LOC: OLS.ACH 14:42 | PROVIDERS: Referring Provider Family Medicine; Visit Provider Family Medicine | DX: Z03.818 Encounter for observation for suspected exposure to other biological agents ruled out (principal) | CPT/HCPCS: 87635; U0003 ==

== ENCOUNTER → 2020-03-05 09:38 | Outpatient (REF) | payer MEDICARE, OTHER, MEDICAID, SELFPAY | LOC: OLS.ACH 09:38 | PROVIDERS: Family Medicine; Referring Provider Family Medicine; Visit Provider Family Medicine | DX: Z03.818 Encounter for observation for suspected exposure to other biological agents ruled out (principal) | CPT/HCPCS: 87635; U0003 ==

== ENCOUNTER → 2020-03-09 09:44 | Outpatient (REF) | payer MEDICARE, OTHER, MEDICAID, SELFPAY | LOC: OLS.ACH 09:44 | PROVIDERS: Family Medicine; Referring Provider Family Medicine; Visit Provider Family Medicine | DX: Z03.818 Encounter for observation for suspected exposure to other biological agents ruled out (principal) | CPT/HCPCS: 87635; U0003 ==

== ENCOUNTER → 2020-03-12 11:09 | Outpatient (REF) | payer MEDICARE, OTHER, MEDICAID, SELFPAY | LOC: OLS.ACH 11:09 | PROVIDERS: Referring Provider Family Medicine; Visit Provider Family Medicine | DX: Z03.818 Encounter for observation for suspected exposure to other biological agents ruled out (principal) | CPT/HCPCS: 87635; U0003 ==

== ENCOUNTER → 2020-03-16 | Outpatient (REF) | payer MEDICARE, OTHER, MEDICAID, SELFPAY | LOC: OLS.ACH | PROVIDERS: Referring Provider Family Medicine; Visit Provider Family Medicine | DX: Z03.818 Encounter for observation for suspected exposure to other biological agents ruled out (principal) | CPT/HCPCS: 87635; U0003 ==

== ENCOUNTER → 2020-03-23 07:40 | Outpatient (REF) | payer MEDICARE, OTHER, MEDICAID, SELFPAY | LOC: OLS.ACH 07:40 | PROVIDERS: Referring Provider Family Medicine; Visit Provider Family Medicine | DX: Z03.818 Encounter for observation for suspected exposure to other biological agents ruled out (principal) | CPT/HCPCS: 87635; U0003 ==

== ENCOUNTER → 2020-03-30 12:59 | Outpatient (REF) | payer MEDICARE, OTHER, MEDICAID, SELFPAY | LOC: OLS.ACH 12:59 | PROVIDERS: Visit Provider Family Medicine | DX: Z03.818 Encounter for observation for suspected exposure to other biological agents ruled out (principal) | CPT/HCPCS: 87635; U0003 ==

== ENCOUNTER → 2020-04-05 04:00 | Outpatient (REF) | payer MEDICARE, OTHER, MEDICAID, SELFPAY ==
[2020-04-05 09:35] LABS: Hematocrit 41.3 % (40-54); Hemoglobin 13.7 g/dL (13.0-16.5); Mean Corp Hgb Conc 33.2 g/dL (32-36); Mean Corpuscular Hgb 32.5 pg (27.0-32.0); Mean Corpuscular Volume 97.9 fL (80-94); Mean Platelet Vol. 9.6 fl (6.2-12.0); Platelet Count 223 K/mm3 (150-450); RBC Distribution Width CV 12.7 % (11.6-14.6); RBC Distribution Width SD 45.5 fl (35.1-43.9); Red Blood Count 4.22 M/mm3 (4.6-6.2)
[2020-04-05 09:41] LABS: Phenytoin (Dilantin) Level 9.5 mL (10.0-20.0)
[2020-04-05 09:48] LABS: ALB/GLOB Ratio 0.9 RATIO (0.9-2.4); AST(SGOT) 24 U/L (15-37); Alanine Aminotransfer ALT/SGPT 11 U/L (16-61); Albumin, Serum 3.2 g/dL (3.2-5.0); Alkaline Phosphatase 146 U/L (45-117); Anion Gap 5 (5-15); BUN 16 mg/dL (7-18); BUN/Creat Ratio 15.1 RATIO (10-20); Calcium,Total 9.8 mg/dL (8.5-10.1); Chloride 99 mmol/L (98-107); Creatinine, Serum 1.06 mg/dL (0.70-1.30); EST Glomerular Filtration Rate 71 mL/min (>60); Est Glom Filt Rate - Afr Amer 87 mL/min (>60); Globulin 3.6 g/dL (2.2-4.2); Glucose 80 mg/dL (74-106); Potassium 3.5 mmol/L (3.5-5.1); Protein, Total 6.8 g/dL (6.4-8.2); Sodium Level 138 mmol/L (136-145)
[2020-04-07 03:52] LABS: KEPPRA (LEVETIRACETAM) 38.3 ug/mL (10.0-40.0)
== END ==
LOC: OLS.ACH 04:00
PROVIDERS: Referring Provider Family Medicine; Visit Provider Family Medicine
DX: G40.909 Epilepsy, unspecified, not intractable, without status epilepticus (principal); I12.9 Hypertensive chronic kidney disease with stage 1 through stage 4 chronic kidney disease, or unspecified chronic kidney disease
CPT/HCPCS: 36415; 80053; 80177; 80185; 85027

== ENCOUNTER → 2020-04-06 11:37 | Outpatient (REF) | payer MEDICARE, OTHER, MEDICAID, SELFPAY | LOC: OLS.ACH 11:37 | PROVIDERS: PCP Family Medicine; Referring Provider Family Medicine; Visit Provider Family Medicine | DX: Z03.818 Encounter for observation for suspected exposure to other biological agents ruled out (principal) | CPT/HCPCS: 87635; U0003 ==

== ENCOUNTER → 2020-04-20 10:13 | Outpatient (REF) | payer MEDICARE, OTHER, MEDICAID, SELFPAY | LOC: OLS.ACH 10:13 | PROVIDERS: PCP Family Medicine; Referring Provider Family Medicine; Visit Provider Family Medicine | DX: Z03.818 Encounter for observation for suspected exposure to other biological agents ruled out (principal) | CPT/HCPCS: 87635; U0003 ==

== ENCOUNTER → 2020-05-04 06:07 | Outpatient (REF) | payer MEDICARE, OTHER, MEDICAID, SELFPAY | LOC: OLS.ACH 06:07 | PROVIDERS: PCP Family Medicine; Referring Provider Family Medicine; Visit Provider Family Medicine | DX: Z03.818 Encounter for observation for suspected exposure to other biological agents ruled out (principal) | CPT/HCPCS: 87635; U0003 ==

== ENCOUNTER → 2020-05-18 07:34 | Outpatient (REF) | payer MEDICARE, OTHER, MEDICAID, SELFPAY | LOC: OLS.ACH 07:34 | PROVIDERS: PCP Family Medicine; Referring Provider Family Medicine; Visit Provider Family Medicine | DX: Z03.818 Encounter for observation for suspected exposure to other biological agents ruled out (principal) | CPT/HCPCS: 87635; U0003 ==

== ENCOUNTER → 2020-06-01 17:32 | Outpatient (REF) | payer MEDICARE, OTHER, MEDICAID, SELFPAY | LOC: OLS.ACH 17:32 | PROVIDERS: PCP Family Medicine; Referring Provider Family Medicine; Visit Provider Family Medicine | DX: Z03.818 Encounter for observation for suspected exposure to other biological agents ruled out (principal) | CPT/HCPCS: 87635; U0005; U0003 ==

== ENCOUNTER → 2020-10-04 04:00 | Outpatient (REF) | payer MEDICARE, MEDICAID, SELFPAY ==
[2020-10-04 08:26] LABS: Absolute Lymphocyte Count 1.63 X10^3/uL (0.83-4.51); Absolute Neutrophil Count 3.1 X10^3/uL (2.0-7.7); Basophil# 0.02 X10^3/uL; Basophil% 0.4 % (0-1); Eosinophil# 0.14 X10^3/uL; Eosinophils% 2.5 % (0-5); Hematocrit 40.1 % (40-54); Hemoglobin 13.3 g/dL (13.0-16.5); Lymphocyte # 1.63 X10^3/ul (0.83-4.51); Lymphocyte % 29.3 % (19-41); Mean Corp Hgb Conc 33.2 g/dL (32-36); Mean Corpuscular Hgb 31.7 pg (27.0-32.0); Mean Corpuscular Volume 95.7 fL (80-94); Mean Platelet Vol. 9.9 fl (6.2-12.0); Monocyte# 0.65 X10^3/uL; Monocyte% 11.7 % (0-10); NRBC Flagged by Analyzer 0 % (0-5); Neutrophil # 3.11 X10^3/uL (2.7-7.7); Neutrophil % 55.9 % (47-70); Platelet Count 203 K/mm3 (150-450); RBC Distribution Width SD 41.9 fl (35.1-43.9); Red Blood Count 4.19 M/mm3 (4.6-6.2); White Blood Count 5.6 K/mm3 (4.4-11.0)
[2020-10-04 08:47] LABS: ALB/GLOB Ratio 0.9 RATIO (0.9-2.4); AST(SGOT) 22 U/L (15-37); Alanine Aminotransfer ALT/SGPT 24 U/L (16-61); Albumin, Serum 3.1 g/dL (3.2-5.0); Alkaline Phosphatase 130 U/L (45-117); Anion Gap 4 (5-15); BUN 15 mg/dL (7-18); BUN/Creat Ratio 15.5 RATIO (10-20); Calcium,Total 9.3 mg/dL (8.5-10.1); Chloride 97 mmol/L (98-107); Cholesterol 121 mg/dL (200); Creatinine, Serum 0.97 mg/dL (0.70-1.30); EST Glomerular Filtration Rate 79 mL/min (>60); Est Glom Filt Rate - Afr Amer 96 mL/min (>60); Globulin 3.4 g/dL (2.2-4.2); Glucose 77 mg/dL (74-106); High Density Lipoprotein 71 mg/dL; Potassium 3.4 mmol/L (3.5-5.1); Protein, Total 6.5 g/dL (6.4-8.2); Sodium Level 133 mmol/L (136-145); Triglycerides 68 mg/dL; Very Low Density Lipoprotein 14 mg/dL (5-40)
[2020-10-04 08:50] LABS: Vitamin D,25 Hydroxy 48.8 ng/mL
[2020-10-04 08:51] LABS: Phenytoin (Dilantin) Level 8.2 mL (10.0-20.0)
[2020-10-07 21:26] LABS: KEPPRA (LEVETIRACETAM) 23.5 ug/mL (10.0-40.0)
== END ==
LOC: OLS.ACH 04:00
PROVIDERS: PCP Family Medicine; Referring Provider Family Medicine; Visit Provider Family Medicine
DX: G40.909 Epilepsy, unspecified, not intractable, without status epilepticus (principal); E78.5 Hyperlipidemia, unspecified; I12.9 Hypertensive chronic kidney disease with stage 1 through stage 4 chronic kidney disease, or unspecified chronic kidney disease; N18.9 Chronic kidney disease, unspecified; F31.9 Bipolar disorder, unspecified; E55.9 Vitamin D deficiency, unspecified
CPT/HCPCS: 36415; 80053; 80061; 80177; 80185; 82306; 85025

== ENCOUNTER → 2021-03-21 05:00 | Outpatient (REF) | payer MEDICAID, SELFPAY ==
[2021-03-21 09:06] LABS: Absolute Lymphocyte Count 1.84 X10^3/uL (0.83-4.51); Absolute Neutrophil Count 2.6 X10^3/uL (2.0-7.7); Basophil# 0.03 X10^3/uL; Basophil% 0.5 % (0-1); Eosinophil# 0.29 X10^3/uL; Eosinophils% 5.2 % (0-5); Hematocrit 38.9 % (40-54); Hemoglobin 13.3 g/dL (13.0-16.5); Lymphocyte # 1.84 X10^3/ul (0.83-4.51); Lymphocyte % 32.7 % (19-41); Mean Corp Hgb Conc 34.2 g/dL (32-36); Mean Corpuscular Hgb 33.3 pg (27.0-32.0); Mean Corpuscular Volume 97.5 fL (80-94); Mean Platelet Vol. 10.1 fl (6.2-12.0); Monocyte# 0.88 X10^3/uL; Monocyte% 15.6 % (0-10); NRBC Flagged by Analyzer 0 % (0-5); Neutrophil # 2.58 X10^3/uL (2.7-7.7); Neutrophil % 45.8 % (47-70); Platelet Count 189 K/mm3 (150-450); RBC Distribution Width CV 12.5 % (11.6-14.6); RBC Distribution Width SD 44.8 fl (35.1-43.9); Red Blood Count 3.99 M/mm3 (4.6-6.2); White Blood Count 5.6 K/mm3 (4.4-11.0)
[2021-03-21 09:21] LABS: ALB/GLOB Ratio 0.7 RATIO (0.9-2.4); AST(SGOT) 27 U/L (15-37); Alanine Aminotransfer ALT/SGPT 29 U/L (16-61); Albumin, Serum 2.7 g/dL (3.2-5.0); Alkaline Phosphatase 143 U/L (45-117); Anion Gap 7 (5-15); BUN 24 mg/dL (7-18); Calcium,Total 9.4 mg/dL (8.5-10.1); Chloride 102 mmol/L (98-107); Creatinine, Serum 1.09 mg/dL (0.70-1.30); EST Glomerular Filtration Rate 69 mL/min (>60); Est Glom Filt Rate - Afr Amer 84 mL/min (>60); Globulin 3.9 g/dL (2.2-4.2); Glucose 79 mg/dL (74-106); Potassium 3.7 mmol/L (3.5-5.1); Protein, Total 6.6 g/dL (6.4-8.2); Sodium Level 138 mmol/L (136-145)
[2021-03-21 11:21] LABS: Phenytoin (Dilantin) Level 7.5 mL (10.0-20.0)
[2021-03-25 09:25] LABS: KEPPRA (LEVETIRACETAM) 29.5 ug/mL (10.0-40.0)
== END ==
LOC: OLS.ACH 05:00
PROVIDERS: PCP Family Medicine; Visit Provider Family Medicine
DX: G40.909 Epilepsy, unspecified, not intractable, without status epilepticus (principal); I12.9 Hypertensive chronic kidney disease with stage 1 through stage 4 chronic kidney disease, or unspecified chronic kidney disease; N18.9 Chronic kidney disease, unspecified
CPT/HCPCS: 36415; 80053; 80177; 80185; 85025

== ENCOUNTER → 2021-09-05 | Outpatient (REF) | payer MEDICAID, SELFPAY ==
[2021-09-05 08:51] LABS: Absolute Lymphocyte Count 1.02 X10^3/uL (0.83-4.51); Absolute Neutrophil Count 5.6 X10^3/uL (2.0-7.7); Basophil# 0.03 X10^3/uL; Basophil% 0.4 % (0-1); Eosinophils% 1.4 % (0-5); Hematocrit 41.6 % (40-54); Lymphocyte # 1.02 X10^3/ul (0.83-4.51); Lymphocyte % 13.8 % (19-41); Mean Corp Hgb Conc 33.7 g/dL (32-36); Mean Corpuscular Hgb 32.7 pg (27.0-32.0); Mean Corpuscular Volume 97.2 fL (80-94); Mean Platelet Vol. 10.1 fl (6.2-12.0); Monocyte# 0.66 X10^3/uL; Monocyte% 8.9 % (0-10); NRBC Flagged by Analyzer 0 % (0-5); Neutrophil # 5.57 X10^3/uL (2.7-7.7); Neutrophil % 75.2 % (47-70); Platelet Count 164 K/mm3 (150-450); RBC Distribution Width CV 12.7 % (11.6-14.6); Red Blood Count 4.28 M/mm3 (4.6-6.2); White Blood Count 7.4 K/mm3 (4.4-11.0)
[2021-09-05 09:07] LABS: ALB/GLOB Ratio 0.9 RATIO (0.9-2.4); AST(SGOT) 27 U/L (15-37); Alanine Aminotransfer ALT/SGPT 10 U/L (16-61); Albumin, Serum 3.1 g/dL (3.2-5.0); Alkaline Phosphatase 129 U/L (45-117); Anion Gap 4 (5-15); BUN 20 mg/dL (7-18); BUN/Creat Ratio 17.5 RATIO (10-20); Calcium,Total 9.1 mg/dL (8.5-10.1); Chloride 102 mmol/L (98-107); Creatinine, Serum 1.14 mg/dL (0.70-1.30); EST Glomerular Filtration Rate 66 mL/min (>60); Est Glom Filt Rate - Afr Amer 79 mL/min (>60); Globulin 3.6 g/dL (2.2-4.2); Glucose 96 mg/dL (74-106); Potassium 3.6 mmol/L (3.5-5.1); Protein, Total 6.7 g/dL (6.4-8.2); Sodium Level 138 mmol/L (136-145)
[2021-09-05 09:10] LABS: Phenytoin (Dilantin) Level 8.6 mL (10.0-20.0)
[2021-09-10 11:22] LABS: KEPPRA (LEVETIRACETAM) 27.5 ug/mL (10.0-40.0)
== END | disposition home or self-care (01) ==
LOC: OLS.ACH 04:00
PROVIDERS: PCP Family Medicine; Referring Provider Family Medicine; Visit Provider Family Medicine
DX: G20 Parkinson's disease (principal); G40.909 Epilepsy, unspecified, not intractable, without status epilepticus; E78.5 Hyperlipidemia, unspecified; N18.1 Chronic kidney disease, stage 1; D63.1 Anemia in chronic kidney disease
CPT/HCPCS: 36415; 80053; 80177; 80185; 85025

== ENCOUNTER → 2021-10-03 | Outpatient (REF) | payer MEDICARE, MEDICAID, SELFPAY ==
[2021-10-03 09:06] LABS: Cholesterol 138 mg/dL (200); High Density Lipoprotein 72 mg/dL; Triglycerides 112 mg/dL; Very Low Density Lipoprotein 22 mg/dL (5-40)
== END | disposition home or self-care (01) ==
LOC: OLS.ACH 05:00
PROVIDERS: PCP Family Medicine; Visit Provider Family Medicine
DX: E78.5 Hyperlipidemia, unspecified (principal); M48.061 Spinal stenosis, lumbar region without neurogenic claudication
CPT/HCPCS: 36415; 80061; 82306

== ENCOUNTER → 2022-02-20 | Outpatient (REF) | payer MEDICARE, MEDICAID, SELFPAY ==
[2022-02-20 09:58] LABS: Absolute Lymphocyte Count 1.61 X10^3/uL (0.83-4.51); Absolute Neutrophil Count 3.7 X10^3/uL (2.0-7.7); Basophil# 0.04 X10^3/uL; Basophil% 0.6 % (0-1); Eosinophil# 0.23 X10^3/uL; Eosinophils% 3.6 % (0-5); Hematocrit 41.5 % (40-54); Hemoglobin 13.9 g/dL (13.0-16.5); Lymphocyte # 1.61 X10^3/ul (0.83-4.51); Lymphocyte % 25.4 % (19-41); Mean Corp Hgb Conc 33.5 g/dL (32-36); Mean Corpuscular Hgb 33.2 pg (27.0-32.0); Monocyte# 0.77 X10^3/uL; Monocyte% 12.1 % (0-10); NRBC Flagged by Analyzer 0 % (0-5); Neutrophil # 3.67 X10^3/uL (2.7-7.7); Neutrophil % 57.8 % (47-70); Platelet Count 199 K/mm3 (150-450); RBC Distribution Width CV 12.5 % (11.6-14.6); RBC Distribution Width SD 45.1 fl (35.1-43.9); Red Blood Count 4.19 M/mm3 (4.6-6.2); White Blood Count 6.4 K/mm3 (4.4-11.0)
[2022-02-20 10:32] LABS: ALB/GLOB Ratio 0.8 RATIO (0.9-2.4); AST(SGOT) 33 U/L (15-37); Alanine Aminotransfer ALT/SGPT 12 U/L (16-61); Alkaline Phosphatase 133 U/L (45-117); Anion Gap 8 (5-15); BUN 20 mg/dL (7-18); BUN/Creat Ratio 17.9 RATIO (10-20); Calcium,Total 10.1 mg/dL (8.5-10.1); Chloride 99 mmol/L (98-107); Creatinine, Serum 1.12 mg/dL (0.70-1.30); EST Glomerular Filtration Rate 67 mL/min (>60); Est Glom Filt Rate - Afr Amer 81 mL/min (>60); Glucose 91 mg/dL (74-106); Potassium 3.7 mmol/L (3.5-5.1); Sodium Level 136 mmol/L (136-145)
[2022-02-20 10:51] LABS: Phenytoin (Dilantin) Level 8.5 mL (10.0-20.0)
[2022-02-22 16:43] LABS: KEPPRA (LEVETIRACETAM) 31.4 ug/mL (10.0-40.0)
== END ==
LOC: OLS.ACH 05:00
PROVIDERS: PCP Family Medicine; Visit Provider Family Medicine
DX: I13.0 Hypertensive heart and chronic kidney disease with heart failure and stage 1 through stage 4 chronic kidney disease, or unspecified chronic kidney disease (principal); G20 Parkinson's disease; F25.9 Schizoaffective disorder, unspecified; I50.9 Heart failure, unspecified; G40.909 Epilepsy, unspecified, not intractable, without status epilepticus; N18.9 Chronic kidney disease, unspecified
CPT/HCPCS: 36415; 80053; 80177; 80185; 85025

== ENCOUNTER → 2022-03-07 | Outpatient (REF) | payer MEDICARE, MEDICAID, SELFPAY ==
[2022-03-08 09:53] LABS: Color, Urine Yellow (Yellow); Glucose, Dipstick Normal (Normal); Ketone-Dipstick Negative (Negative); Leukocyte Esterase-Dipstick 500 /ul (Negative); Nitrite-Dipstick Positive (Negative); Occult Blood-Urine 25 /ul (Negative); Protein-Dipstick 15 mg/dl (Negative); Urine Bilirubin Dipstick Negative (Negative); Urine Clarity Sl. Cloudy (Clear); Urine Urobilinogen Normal (Normal)
== END ==
LOC: OLS.ACH 09:20
PROVIDERS: PCP Family Medicine; Referring Provider Family Medicine; Visit Provider Family Medicine
DX: N18.1 Chronic kidney disease, stage 1 (principal); Z79.899 Other long term (current) drug therapy
CPT/HCPCS: 81002; 87077; 87086; 87088; 87186

== ENCOUNTER → 2022-08-07 | Outpatient (REF) | payer MEDICARE, MEDICAID, SELFPAY ==
[2022-08-07 09:05] LABS: Absolute Lymphocyte Count 1.76 X10^3/uL (0.83-4.51); Absolute Neutrophil Count 3.6 X10^3/uL (2.0-7.7); Basophil# 0.04 X10^3/uL; Basophil% 0.6 % (0-1); Eosinophil# 0.16 X10^3/uL; Eosinophils% 2.6 % (0-5); Hematocrit 45.7 % (40-54); Lymphocyte # 1.76 X10^3/ul (0.83-4.51); Lymphocyte % 28.5 % (19-41); Mean Corp Hgb Conc 32.8 g/dL (32-36); Mean Corpuscular Hgb 32.8 pg (27.0-32.0); Mean Platelet Vol. 9.5 fl (6.2-12.0); Monocyte# 0.65 X10^3/uL; Monocyte% 10.5 % (0-10); NRBC Flagged by Analyzer 0 % (0-5); Neutrophil # 3.56 X10^3/uL (2.7-7.7); Neutrophil % 57.6 % (47-70); Platelet Count 227 K/mm3 (150-450); RBC Distribution Width CV 12.4 % (11.6-14.6); RBC Distribution Width SD 45.6 fl (35.1-43.9); Red Blood Count 4.57 M/mm3 (4.6-6.2); White Blood Count 6.2 K/mm3 (4.4-11.0)
[2022-08-07 09:19] LABS: ALB/GLOB Ratio 0.8 RATIO (0.9-2.4); AST(SGOT) 25 U/L (15-37); Alanine Aminotransfer ALT/SGPT 11 U/L (16-61); Albumin, Serum 3.3 g/dL (3.2-5.0); Alkaline Phosphatase 127 U/L (45-117); Anion Gap 7 (5-15); BUN 22 mg/dL (7-18); BUN/Creat Ratio 19.3 RATIO (10-20); Chloride 103 mmol/L (98-107); Creatinine, Serum 1.14 mg/dL (0.70-1.30); EST Glomerular Filtration Rate 65 mL/min (>60); Est Glom Filt Rate - Afr Amer 79 mL/min (>60); Globulin 3.9 g/dL (2.2-4.2); Glucose 93 mg/dL (74-106); Potassium 3.8 mmol/L (3.5-5.1); Protein, Total 7.2 g/dL (6.4-8.2); Sodium Level 140 mmol/L (136-145)
[2022-08-09 10:40] LABS: KEPPRA (LEVETIRACETAM) 30.6 ug/mL (10.0-40.0)
== END ==
LOC: OLS.ACH 05:00
PROVIDERS: PCP Family Medicine; Visit Provider Internal Medicine
DX: G40.909 Epilepsy, unspecified, not intractable, without status epilepticus (principal); F03.A2 Unspecified dementia, mild, with psychotic disturbance; E78.5 Hyperlipidemia, unspecified
CPT/HCPCS: 36415; 80053; 80177; 80185; 85025

== ENCOUNTER → 2022-10-02 | Outpatient (REF) | payer MEDICARE, MEDICAID, SELFPAY ==
[2022-10-02 09:21] LABS: Vitamin D,25 Hydroxy 50.8 ng/mL
[2022-10-02 09:28] LABS: Cholesterol 129 mg/dL (200); High Density Lipoprotein 62 mg/dL; Triglycerides 121 mg/dL; Very Low Density Lipoprotein 24 mg/dL (5-40)
== END ==
LOC: OLS.ACH 05:00
PROVIDERS: PCP Family Medicine; Visit Provider Family Medicine
DX: E78.5 Hyperlipidemia, unspecified (principal); M48.061 Spinal stenosis, lumbar region without neurogenic claudication; E55.9 Vitamin D deficiency, unspecified
CPT/HCPCS: 36415; 80061; 82306

== ENCOUNTER → 2023-01-23 | Outpatient (REF) | payer MEDICARE, MEDICAID, SELFPAY ==
[2023-01-23 09:40] LABS: Absolute Lymphocyte Count 1.87 X10^3/uL (0.83-4.51); Absolute Neutrophil Count 3.2 X10^3/uL (2.0-7.7); Basophil# 0.03 X10^3/uL; Basophil% 0.5 % (0-1); Eosinophils% 3.3 % (0-5); Hematocrit 45.2 % (40-54); Hemoglobin 14.4 g/dL (13.0-16.5); Lymphocyte # 1.87 X10^3/ul (0.83-4.51); Mean Corp Hgb Conc 31.9 g/dL (32-36); Mean Corpuscular Hgb 32.8 pg (27.0-32.0); Mean Platelet Vol. 10.3 fl (6.2-12.0); Monocyte# 0.71 X10^3/uL; Monocyte% 11.8 % (0-10); NRBC Flagged by Analyzer 0 % (0-5); Neutrophil # 3.21 X10^3/uL (2.7-7.7); Neutrophil % 53.1 % (47-70); Platelet Count 205 K/mm3 (150-450); RBC Distribution Width CV 13.2 % (11.6-14.6); RBC Distribution Width SD 51.1 fl (35.1-43.9); Red Blood Count 4.39 M/mm3 (4.6-6.2)
[2023-01-23 10:06] LABS: ALB/GLOB Ratio 0.8 RATIO (0.9-2.4); AST(SGOT) 23 U/L (15-37); Alanine Aminotransfer ALT/SGPT 12 U/L (16-61); Albumin, Serum 3.2 g/dL (3.2-5.0); Alkaline Phosphatase 131 U/L (45-117); Anion Gap 5 (5-15); BUN 23 mg/dL (7-18); BUN/Creat Ratio 19.2 RATIO (10-20); Chloride 106 mmol/L (98-107); EST Glomerular Filtration Rate 62 mL/min (>60); Est Glom Filt Rate - Afr Amer 74 mL/min (>60); Globulin 3.9 g/dL (2.2-4.2); Glucose 103 mg/dL (74-106); Potassium 3.8 mmol/L (3.5-5.1); Protein, Total 7.1 g/dL (6.4-8.2); Sodium Level 141 mmol/L (136-145)
[2023-01-23 10:09] LABS: Phenytoin (Dilantin) Level 8.1 mL (10.0-20.0)
[2023-01-25 10:08] LABS: KEPPRA (LEVETIRACETAM) 31.2 ug/mL (10.0-40.0)
== END ==
LOC: OLS.ACH 04:00
PROVIDERS: PCP Family Medicine; Referring Provider Family Medicine; Visit Provider Family Medicine
DX: I12.9 Hypertensive chronic kidney disease with stage 1 through stage 4 chronic kidney disease, or unspecified chronic kidney disease (principal); N18.9 Chronic kidney disease, unspecified; G40.909 Epilepsy, unspecified, not intractable, without status epilepticus
CPT/HCPCS: 36415; 80053; 80177; 80185; 85025

== ENCOUNTER → 2023-03-20 | Outpatient (REF) | payer MEDICARE, MEDICAID, SELFPAY ==
[2023-03-20 08:15] LABS: Hematocrit 43.8 % (40-54); Hemoglobin 14.2 g/dL (13.0-16.5); Mean Corp Hgb Conc 32.4 g/dL (32-36); Mean Corpuscular Hgb 32.8 pg (27.0-32.0); Mean Corpuscular Volume 101.2 fL (80-94); Mean Platelet Vol. 10.2 fl (6.2-12.0); Platelet Count 196 K/mm3 (150-450); RBC Distribution Width CV 12.8 % (11.6-14.6); RBC Distribution Width SD 47.8 fl (35.1-43.9); Red Blood Count 4.33 M/mm3 (4.6-6.2); White Blood Count 6.1 K/mm3 (4.4-11.0)
[2023-03-20 08:16] LABS: Bacteria 0 SEEN /hpf (None Seen); Mucous, Urine 0 SEEN /hpf (<or=2+); Red Blood Cells-Urine 0 SEEN /hpf (0-5); Squamous Epithelial Cells - UA 0 SEEN /hpf (0-5)
[2023-03-20 08:24] LABS: Color, Urine Yellow (Yellow); Glucose, Dipstick Normal (Normal); Ketone-Dipstick Negative (Negative); Leukocyte Esterase-Dipstick 500 /ul (Negative); Nitrite-Dipstick Positive (Negative); Occult Blood-Urine 50 /ul (Negative); Protein-Dipstick 30 mg/dl (Negative); Specific Gravity, Urine 1.015 (1.002-1.030); Urine Bilirubin Dipstick Negative (Negative); Urine Clarity Cloudy (Clear); Urine Urobilinogen Normal (Normal)
[2023-03-20 08:30] LABS: ALB/GLOB Ratio 0.8 RATIO (0.9-2.4); AST(SGOT) 24 U/L (15-37); Alanine Aminotransfer ALT/SGPT 11 U/L (16-61); Albumin, Serum 3.1 g/dL (3.2-5.0); Alkaline Phosphatase 124 U/L (45-117); Anion Gap 3 (5-15); BUN 23 mg/dL (7-18); BUN/Creat Ratio 19.8 RATIO (10-20); Calcium,Total 9.8 mg/dL (8.5-10.1); Chloride 103 mmol/L (98-107); Creatinine, Serum 1.16 mg/dL (0.70-1.30); EST Glomerular Filtration Rate 64 mL/min (>60); Est Glom Filt Rate - Afr Amer 77 mL/min (>60); Globulin 3.7 g/dL (2.2-4.2); Glucose 96 mg/dL (74-106); Potassium 4.1 mmol/L (3.5-5.1); Protein, Total 6.8 g/dL (6.4-8.2); Sodium Level 140 mmol/L (136-145)
[2023-03-20 08:31] LABS: White Blood Cells >100 SEEN /hpf (0-5)
== END ==
LOC: OLS.ACH 05:00
PROVIDERS: PCP Family Medicine; Visit Provider Family Medicine
DX: I13.0 Hypertensive heart and chronic kidney disease with heart failure and stage 1 through stage 4 chronic kidney disease, or unspecified chronic kidney disease (principal); I50.9 Heart failure, unspecified; N18.9 Chronic kidney disease, unspecified; F03.A4 Unspecified dementia, mild, with anxiety; Z79.899 Other long term (current) drug therapy
CPT/HCPCS: 36415; 80053; 81001; 85027; 87077; 87086; 87088; 87186

== ENCOUNTER → 2023-05-09 | Outpatient (REF) | payer MEDICARE, MEDICAID, SELFPAY ==
[2023-05-09 07:46] LABS: Mucous, Urine 0 SEEN /hpf (<or=2+); Red Blood Cells-Urine 0 SEEN /hpf (0-5)
[2023-05-09 08:07] LABS: Color, Urine Yellow (Yellow); Glucose, Dipstick Normal (Normal); Ketone-Dipstick Negative (Negative); Leukocyte Esterase-Dipstick 100 /ul (Negative); Nitrite-Dipstick Positive (Negative); Occult Blood-Urine Negative /ul (Negative); Protein-Dipstick Negative (Negative); Urine Bilirubin Dipstick Negative (Negative); Urine Clarity Clear (Clear); Urine Urobilinogen Normal (Normal)
[2023-05-09 08:13] LABS: Bacteria 1+ /hpf (None Seen); Squamous Epithelial Cells - UA 0-5 SEEN /hpf (0-5); White Blood Cells 5-10 SEEN /hpf (0-5)
== END ==
LOC: OLS.ACH 07:45
PROVIDERS: PCP Family Medicine; Referring Provider Family Medicine; Visit Provider Family Medicine
DX: R35.0 Frequency of micturition (principal)
CPT/HCPCS: 81001; 87077; 87086; 87088; 87186

== ENCOUNTER → 2023-07-10 | Outpatient (REF) | payer MEDICARE, MEDICAID, SELFPAY ==
[2023-07-10 09:29] LABS: Absolute Lymphocyte Count 1.68 X10^3/uL (0.83-4.51); Absolute Neutrophil Count 4.2 X10^3/uL (2.0-7.7); Basophil# 0.03 X10^3/uL; Basophil% 0.4 % (0-1); Eosinophil# 0.17 X10^3/uL; Eosinophils% 2.5 % (0-5); Hematocrit 42.2 % (40-54); Hemoglobin 13.6 g/dL (13.0-16.5); Lymphocyte # 1.68 X10^3/ul (0.83-4.51); Lymphocyte % 24.7 % (19-41); Mean Corp Hgb Conc 32.2 g/dL (32-36); Mean Corpuscular Hgb 32.2 pg (27.0-32.0); Mean Corpuscular Volume 99.8 fL (80-94); Mean Platelet Vol. 10.1 fl (6.2-12.0); Monocyte% 10.3 % (0-10); NRBC Flagged by Analyzer 0 % (0-5); Neutrophil % 61.8 % (47-70); Platelet Count 196 K/mm3 (150-450); RBC Distribution Width CV 12.7 % (11.6-14.6); RBC Distribution Width SD 46.8 fl (35.1-43.9); Red Blood Count 4.23 M/mm3 (4.6-6.2); White Blood Count 6.8 K/mm3 (4.4-11.0)
[2023-07-10 09:48] LABS: ALB/GLOB Ratio 0.7 RATIO (0.9-2.4); AST(SGOT) 26 U/L (15-37); Alanine Aminotransfer ALT/SGPT 11 U/L (16-61); Albumin, Serum 2.8 g/dL (3.2-5.0); Alkaline Phosphatase 128 U/L (45-117); Anion Gap 4 (5-15); BUN 16 mg/dL (7-18); BUN/Creat Ratio 16.2 RATIO (10-20); Calcium,Total 10.1 mg/dL (8.5-10.1); Chloride 105 mmol/L (98-107); Creatinine, Serum 0.98 mg/dL (0.70-1.30); EST Glomerular Filtration Rate 77 mL/min (>60); Est Glom Filt Rate - Afr Amer 93 mL/min (>60); Globulin 3.9 g/dL (2.2-4.2); Glucose 85 mg/dL (74-106); Potassium 3.6 mmol/L (3.5-5.1); Protein, Total 6.7 g/dL (6.4-8.2); Sodium Level 140 mmol/L (136-145)
[2023-07-10 10:29] LABS: Phenytoin (Dilantin) Level 8.8 mL (10.0-20.0)
[2023-07-12 10:09] LABS: KEPPRA (LEVETIRACETAM) 35.4 ug/mL (10.0-40.0)
== END ==
LOC: OLS.ACH 05:00
PROVIDERS: PCP Family Medicine; Visit Provider Family Medicine
DX: L13.0 Dermatitis herpetiformis (principal); G40.909 Epilepsy, unspecified, not intractable, without status epilepticus; D63.1 Anemia in chronic kidney disease; N18.9 Chronic kidney disease, unspecified
CPT/HCPCS: 36415; 80053; 80177; 80185; 85025

== ENCOUNTER → 2023-10-01 | Outpatient (REF) | payer MEDICARE, MEDICAID, SELFPAY ==
[2023-10-01 10:30] LABS: Cholesterol 133 mg/dL (200); High Density Lipoprotein 61 mg/dL; Triglycerides 86 mg/dL; Very Low Density Lipoprotein 17 mg/dL (5-40)
[2023-10-01 16:57] LABS: Vitamin D,25 Hydroxy 49.6 ng/mL
== END ==
LOC: OLS.ACH 05:00
PROVIDERS: PCP Family Medicine; Visit Provider Family Medicine
DX: M48.061 Spinal stenosis, lumbar region without neurogenic claudication (principal); E78.5 Hyperlipidemia, unspecified
CPT/HCPCS: 36415; 80061; 82306

== ENCOUNTER → 2023-12-04 | Outpatient (REF) | payer MEDICARE, MEDICAID, SELFPAY ==
[2023-12-04 10:12] LABS: Anion Gap 5 (5-15); BUN 19 mg/dL (7-18); BUN/Creat Ratio 16.4 RATIO (10-20); Calcium,Total 9.7 mg/dL (8.5-10.1); Chloride 99 mmol/L (98-107); Creatinine, Serum 1.16 mg/dL (0.70-1.30); EST Glomerular Filtration Rate 64 mL/min (>60); Est Glom Filt Rate - Afr Amer 77 mL/min (>60); Glucose 94 mg/dL (74-106); Potassium 3.7 mmol/L (3.5-5.1); Sodium Level 135 mmol/L (136-145)
== END ==
LOC: OLS.ACH 05:00
PROVIDERS: PCP Family Medicine; Referring Provider Internal Medicine; Visit Provider Internal Medicine
DX: I13.0 Hypertensive heart and chronic kidney disease with heart failure and stage 1 through stage 4 chronic kidney disease, or unspecified chronic kidney disease (principal); N18.9 Chronic kidney disease, unspecified; I50.9 Heart failure, unspecified
CPT/HCPCS: 36415; 80048

== ENCOUNTER → 2023-12-25 | Outpatient (REF) | payer MEDICARE, MEDICAID, SELFPAY ==
[2023-12-25 10:35] LABS: ALB/GLOB Ratio 0.7 RATIO (0.9-2.4); AST(SGOT) 30 U/L (15-37); Alanine Aminotransfer ALT/SGPT 13 U/L (16-61); Albumin, Serum 3.1 g/dL (3.2-5.0); Alkaline Phosphatase 135 U/L (45-117); Anion Gap 5 (5-15); BUN 23 mg/dL (7-18); BUN/Creat Ratio 19.5 RATIO (10-20); Calcium,Total 9.9 mg/dL (8.5-10.1); Chloride 104 mmol/L (98-107); Creatinine, Serum 1.18 mg/dL (0.70-1.30); EST Glomerular Filtration Rate 63 mL/min (>60); Est Glom Filt Rate - Afr Amer 76 mL/min (>60); Globulin 4.2 g/dL (2.2-4.2); Glucose 108 mg/dL (74-106); Potassium 4.1 mmol/L (3.5-5.1); Protein, Total 7.3 g/dL (6.4-8.2); Sodium Level 140 mmol/L (136-145)
[2023-12-25 10:42] LABS: Absolute Lymphocyte Count 1.56 X10^3/uL (0.83-4.51); Absolute Neutrophil Count 4.7 X10^3/uL (2.0-7.7); Basophil# 0.05 X10^3/uL; Basophil% 0.7 % (0-1); Eosinophil# 0.23 X10^3/uL; Eosinophils% 3.2 % (0-5); Hemoglobin 14.1 g/dL (13.0-16.5); Lymphocyte # 1.56 X10^3/ul (0.83-4.51); Lymphocyte % 21.4 % (19-41); Mean Corpuscular Hgb 32.3 pg (27.0-32.0); Mean Corpuscular Volume 100.7 fL (80-94); Mean Platelet Vol. 9.6 fl (6.2-12.0); Monocyte% 9.6 % (0-10); NRBC Flagged by Analyzer 0 % (0-5); Neutrophil # 4.72 X10^3/uL (2.7-7.7); Neutrophil % 64.7 % (47-70); Platelet Count 269 K/mm3 (150-450); RBC Distribution Width CV 12.9 % (11.6-14.6); Red Blood Count 4.37 M/mm3 (4.6-6.2); White Blood Count 7.3 K/mm3 (4.4-11.0)
[2023-12-29 10:41] LABS: KEPPRA (LEVETIRACETAM) 26.7 ug/mL (10.0-40.0); Phenytoin (Dilantin) Level 4.6 ug/mL (10.0-20.0)
== END ==
LOC: OLS.ACH 05:00
PROVIDERS: PCP Family Medicine; Visit Provider Internal Medicine
DX: I12.9 Hypertensive chronic kidney disease with stage 1 through stage 4 chronic kidney disease, or unspecified chronic kidney disease (principal); N18.9 Chronic kidney disease, unspecified; F31.9 Bipolar disorder, unspecified; G40.909 Epilepsy, unspecified, not intractable, without status epilepticus; F25.1 Schizoaffective disorder, depressive type; E87.6 Hypokalemia; D63.1 Anemia in chronic kidney disease
CPT/HCPCS: 36415; 80053; 80177; 85025

== ENCOUNTER → 2024-01-25 05:00 | Outpatient (REF) | payer MEDICARE, MEDICAID, SELFPAY ==
[2024-01-25 07:54] LABS: Hematocrit 41.6 % (40-54); Hemoglobin 13.4 g/dL (13.0-16.5); Mean Corp Hgb Conc 32.2 g/dL (32-36); Mean Corpuscular Hgb 32.6 pg (27.0-32.0); Mean Corpuscular Volume 101.2 fL (80-94); Mean Platelet Vol. 9.9 fl (6.2-12.0); Platelet Count 218 K/mm3 (150-450); RBC Distribution Width CV 13.3 % (11.6-14.6); RBC Distribution Width SD 50.1 fl (35.1-43.9); Red Blood Count 4.11 M/mm3 (4.6-6.2); White Blood Count 6.1 K/mm3 (4.4-11.0)
[2024-01-25 09:40] LABS: ALB/GLOB Ratio 0.8 RATIO (0.9-2.4); AST(SGOT) 26 U/L (15-37); Alanine Aminotransfer ALT/SGPT 13 U/L (16-61); Albumin, Serum 3.1 g/dL (3.2-5.0); Alkaline Phosphatase 121 U/L (45-117); Anion Gap 5 (5-15); BUN 22 mg/dL (7-18); BUN/Creat Ratio 17.9 RATIO (10-20); Calcium,Total 10.1 mg/dL (8.5-10.1); Chloride 104 mmol/L (98-107); Creatinine, Serum 1.23 mg/dL (0.70-1.30); EST Glomerular Filtration Rate 60 mL/min (>60); Est Glom Filt Rate - Afr Amer 72 mL/min (>60); Globulin 3.8 g/dL (2.2-4.2); Glucose 96 mg/dL (74-106); Potassium 3.7 mmol/L (3.5-5.1); Protein, Total 6.9 g/dL (6.4-8.2); Sodium Level 139 mmol/L (136-145)
[2024-01-25 11:41] LABS: Phenytoin (Dilantin) Level 8.7 mL (10.0-20.0)
== END ==
LOC: OLS.ACH 05:00
PROVIDERS: PCP Family Medicine; Visit Provider Internal Medicine
DX: G40.909 Epilepsy, unspecified, not intractable, without status epilepticus (principal)
CPT/HCPCS: 36415; 80053; 80185; 85027

== ENCOUNTER → 2024-02-19 | Outpatient (REF) | payer MEDICARE, MEDICAID, SELFPAY ==
[2024-02-19 09:30] LABS: Hematocrit 40.9 % (40-54); Hemoglobin 13.3 g/dL (13.0-16.5); Mean Corp Hgb Conc 32.5 g/dL (32-36); Mean Corpuscular Hgb 32.7 pg (27.0-32.0); Mean Corpuscular Volume 100.5 fL (80-94); Mean Platelet Vol. 9.5 fl (6.2-12.0); Platelet Count 207 K/mm3 (150-450); RBC Distribution Width CV 12.7 % (11.6-14.6); RBC Distribution Width SD 47.8 fl (35.1-43.9); Red Blood Count 4.07 M/mm3 (4.6-6.2); White Blood Count 6.3 K/mm3 (4.4-11.0)
== END ==
LOC: OLS.ACH 05:00
PROVIDERS: PCP Family Medicine; Visit Provider Internal Medicine
DX: D64.9 Anemia, unspecified (principal)
CPT/HCPCS: 36415; 85027

== ENCOUNTER → 2024-03-12 | Outpatient (REF) | payer MEDICARE, MEDICAID, SELFPAY ==
[2024-03-12 09:14] LABS: Hematocrit 40.7 % (40-54); Hemoglobin 13.2 g/dL (13.0-16.5); Mean Corp Hgb Conc 32.4 g/dL (32-36); Mean Corpuscular Hgb 32.5 pg (27.0-32.0); Mean Corpuscular Volume 100.2 fL (80-94); Mean Platelet Vol. 10.3 fl (6.2-12.0); Platelet Count 173 K/mm3 (150-450); RBC Distribution Width CV 12.7 % (11.6-14.6); RBC Distribution Width SD 46.9 fl (35.1-43.9); Red Blood Count 4.06 M/mm3 (4.6-6.2); White Blood Count 5.9 K/mm3 (4.4-11.0)
[2024-03-12 09:19] LABS: Vitamin D,25 Hydroxy 47.3 ng/mL
[2024-03-12 09:29] LABS: ALB/GLOB Ratio 0.7 RATIO (0.9-2.4); AST(SGOT) 23 U/L (15-37); Alanine Aminotransfer ALT/SGPT 33 U/L (16-61); Albumin, Serum 2.8 g/dL (3.2-5.0); Alkaline Phosphatase 122 U/L (45-117); Anion Gap 5 (5-15); BUN 28 mg/dL (7-18); BUN/Creat Ratio 23.7 RATIO (10-20); Calcium,Total 10.1 mg/dL (8.5-10.1); Chloride 105 mmol/L (98-107); Creatinine, Serum 1.18 mg/dL (0.70-1.30); EST Glomerular Filtration Rate 63 mL/min (>60); Est Glom Filt Rate - Afr Amer 76 mL/min (>60); Globulin 3.8 g/dL (2.2-4.2); Glucose 101 mg/dL (74-106); Potassium 3.5 mmol/L (3.5-5.1); Protein, Total 6.6 g/dL (6.4-8.2); Sodium Level 141 mmol/L (136-145)
== END ==
LOC: OLS.ACH 05:00
PROVIDERS: PCP Family Medicine; Visit Provider Internal Medicine
DX: I13.0 Hypertensive heart and chronic kidney disease with heart failure and stage 1 through stage 4 chronic kidney disease, or unspecified chronic kidney disease (principal); I50.9 Heart failure, unspecified; N18.30 Chronic kidney disease, stage 3 unspecified
CPT/HCPCS: 36415; 80053; 82306; 84443; 85027

== ENCOUNTER → 2024-06-10 05:00 | Outpatient (REF) | payer MEDICARE, MEDICAID, SELFPAY ==
[2024-06-10 08:49] LABS: Absolute Lymphocyte Count 1.78 X10^3/uL (0.83-4.51); Basophil# 0.03 X10^3/uL; Basophil% 0.5 % (0-1); Eosinophil# 0.21 X10^3/uL; Eosinophils% 3.6 % (0-5); Hematocrit 43.7 % (40-54); Hemoglobin 14.4 g/dL (13.0-16.5); Lymphocyte # 1.78 X10^3/ul (0.83-4.51); Lymphocyte % 30.8 % (19-41); Mean Corpuscular Hgb 32.7 pg (27.0-32.0); Mean Corpuscular Volume 99.3 fL (80-94); Monocyte# 0.71 X10^3/uL; Monocyte% 12.3 % (0-10); NRBC Flagged by Analyzer 0 % (0-5); Neutrophil # 3.03 X10^3/uL (2.7-7.7); Neutrophil % 52.6 % (47-70); Platelet Count 208 K/mm3 (150-450); RBC Distribution Width CV 13.1 % (11.6-14.6); RBC Distribution Width SD 47.7 fl (35.1-43.9); White Blood Count 5.8 K/mm3 (4.4-11.0)
[2024-06-10 09:07] LABS: ALB/GLOB Ratio 0.8 RATIO (0.9-2.4); AST(SGOT) 29 U/L (15-37); Alanine Aminotransfer ALT/SGPT 12 U/L (16-61); Albumin, Serum 3.3 g/dL (3.2-5.0); Alkaline Phosphatase 146 U/L (45-117); Anion Gap 7 (5-15); BUN 24 mg/dL (7-18); BUN/Creat Ratio 20.3 RATIO (10-20); Calcium,Total 10.2 mg/dL (8.5-10.1); Chloride 100 mmol/L (98-107); Creatinine, Serum 1.18 mg/dL (0.70-1.30); EST Glomerular Filtration Rate 63 mL/min (>60); Est Glom Filt Rate - Afr Amer 76 mL/min (>60); Glucose 109 mg/dL (74-106); Potassium 3.7 mmol/L (3.5-5.1); Protein, Total 7.3 g/dL (6.4-8.2); Sodium Level 138 mmol/L (136-145)
[2024-06-10 10:33] LABS: Phenytoin (Dilantin) Level 9.3 mL (10.0-20.0)
[2024-06-12 18:07] LABS: KEPPRA (LEVETIRACETAM) 29.9 ug/mL (10.0-40.0)
== END ==
LOC: OLS.ACH 05:00
PROVIDERS: PCP Family Medicine; Visit Provider Internal Medicine
DX: I12.9 Hypertensive chronic kidney disease with stage 1 through stage 4 chronic kidney disease, or unspecified chronic kidney disease (principal)
CPT/HCPCS: 36415; 80053; 80177; 80185; 85025

== ENCOUNTER → 2024-08-05 | Outpatient (REF) | payer MEDICARE, MEDICAID, SELFPAY ==
[2024-08-05 07:52] LABS: Absolute Lymphocyte Count 1.57 X10^3/uL (0.83-4.51); Absolute Neutrophil Count 4.4 X10^3/uL (2.0-7.7); Basophil# 0.04 X10^3/uL; Basophil% 0.6 % (0-1); Eosinophils% 4.2 % (0-5); Hematocrit 39.9 % (40-54); Hemoglobin 13.1 g/dL (13.0-16.5); Lymphocyte # 1.57 X10^3/ul (0.83-4.51); Lymphocyte % 22.2 % (19-41); Mean Corp Hgb Conc 32.8 g/dL (32-36); Mean Corpuscular Hgb 33.1 pg (27.0-32.0); Mean Corpuscular Volume 100.8 fL (80-94); Mean Platelet Vol. 10.1 fl (6.2-12.0); Monocyte# 0.77 X10^3/uL; Monocyte% 10.9 % (0-10); NRBC Flagged by Analyzer 0 % (0-5); Neutrophil # 4.36 X10^3/uL (2.7-7.7); Neutrophil % 61.7 % (47-70); Platelet Count 202 K/mm3 (150-450); RBC Distribution Width CV 13.8 % (11.6-14.6); RBC Distribution Width SD 51.3 fl (35.1-43.9); Red Blood Count 3.96 M/mm3 (4.6-6.2); White Blood Count 7.1 K/mm3 (4.4-11.0)
[2024-08-05 08:13] LABS: Ammonia 29.5 umol/L (16-60)
[2024-08-05 08:21] LABS: ALB/GLOB Ratio 1.1 RATIO (0.9-2.4); AST(SGOT) 29 U/L (<=37); Alanine Aminotransfer ALT/SGPT 8 U/L (<=46); Albumin, Serum 3.4 g/dL (3.4-4.8); Alkaline Phosphatase 116 U/L (40-129); Anion Gap 12 (5-15); BUN 27 mg/dL (4-19); BUN/Creat Ratio 20.4 RATIO (10-20); Calcium,Total 9.7 mg/dL (7.6-11.0); Carbon Dioxide 26.4 mmol/L (21.0-32.0); Chloride 104 mmol/L (98-108); Creatinine, Serum 1.31 mg/dL (0.70-1.20); EST Glomerular Filtration Rate 54 (>60); Globulin 3.1 g/dL (2.2-4.2); Glucose 94 mg/dL (70-99); Protein, Total 6.6 g/dL (5.9-8.4); Sodium Level 142 mmol/L (133-145); Total Bilirubin 0.24 mg/dL (0.00-1.30)
[2024-08-05 08:24] LABS: Hemoglobin A1c 6.2 % (<=5.6)
[2024-08-05 10:04] LABS: Phenytoin (Dilantin) Level 5.1 ug/mL (10.0-20.0)
== END ==
LOC: OLS.ACH 04:00
PROVIDERS: PCP Family Medicine; Referring Provider Internal Medicine; Visit Provider Internal Medicine
DX: I13.0 Hypertensive heart and chronic kidney disease with heart failure and stage 1 through stage 4 chronic kidney disease, or unspecified chronic kidney disease (principal); I50.9 Heart failure, unspecified; N18.9 Chronic kidney disease, unspecified; D63.1 Anemia in chronic kidney disease; G40.909 Epilepsy, unspecified, not intractable, without status epilepticus; Z79.899 Other long term (current) drug therapy
CPT/HCPCS: 36415; 80053; 80185; 82140; 83036; 84443; 85025

== ENCOUNTER → 2024-08-06 | Outpatient (REF) | payer MEDICARE, MEDICAID, SELFPAY ==
[2024-08-06 08:34] LABS: Mucous, Urine 0 SEEN /hpf (<or=2+); Squamous Epithelial Cells - UA 0 SEEN /hpf (0-5)
[2024-08-06 09:09] LABS: Color, Urine Yellow (Yellow); Glucose, Dipstick Normal (Normal); Ketone-Dipstick Negative (Negative); Leukocyte Esterase-Dipstick 500 /ul (Negative); Nitrite-Dipstick Positive (Negative); Occult Blood-Urine 10 /ul (Negative); Protein-Dipstick 15 mg/dl (Negative); Urine Bilirubin Dipstick Negative (Negative); Urine Clarity Sl. Cloudy (Clear); Urine Urobilinogen Normal (Normal); Urine pH 6.5 (5.0 - 8.0)
[2024-08-06 09:23] LABS: Bacteria 1+ /hpf (None Seen); White Blood Cells 25-50 SEEN /hpf (0-5)
[2024-08-06 09:25] LABS: Red Blood Cells-Urine 0 SEEN /hpf (0-5)
== END ==
LOC: OLS.ACH 01:00
PROVIDERS: PCP Family Medicine; Visit Provider Internal Medicine
DX: R39.9 Unspecified symptoms and signs involving the genitourinary system (principal)
CPT/HCPCS: 81001; 87077; 87086; 87088; 87186

== ENCOUNTER → 2024-08-18 | Outpatient (REF) | payer MEDICARE, MEDICAID, SELFPAY ==
[2024-08-18 09:04] LABS: Phenytoin (Dilantin) Level 6.9 ug/mL (10.0-20.0)
== END ==
LOC: OLS.ACH 05:00
PROVIDERS: PCP Family Medicine; Visit Provider Internal Medicine
DX: G40.909 Epilepsy, unspecified, not intractable, without status epilepticus (principal)
CPT/HCPCS: 36415; 80185

== ENCOUNTER → 2024-08-28 | Outpatient (REF) | payer MEDICARE, MEDICAID, SELFPAY ==
[2024-08-28 08:30] LABS: Phenytoin (Dilantin) Level 13.1 ug/mL (10.0-20.0)
== END ==
LOC: OLS.ACH 05:00
PROVIDERS: PCP Family Medicine; Visit Provider Internal Medicine
DX: G40.909 Epilepsy, unspecified, not intractable, without status epilepticus (principal); F25.1 Schizoaffective disorder, depressive type
CPT/HCPCS: 36415; 80185

== ENCOUNTER → 2024-09-16 | Outpatient (REF) | payer MEDICARE, MEDICAID, SELFPAY ==
[2024-09-16 09:13] LABS: Hematocrit 42.1 % (40-54); Hemoglobin 13.7 g/dL (13.0-16.5); Mean Corp Hgb Conc 32.5 g/dL (32-36); Mean Corpuscular Hgb 33.5 pg (27.0-32.0); Mean Corpuscular Volume 102.9 fL (80-94); Mean Platelet Vol. 10.4 fl (6.2-12.0); Platelet Count 180 K/mm3 (150-450); RBC Distribution Width CV 13.4 % (11.6-14.6); RBC Distribution Width SD 51.5 fl (35.1-43.9); Red Blood Count 4.09 M/mm3 (4.6-6.2); White Blood Count 9.5 K/mm3 (4.4-11.0)
[2024-09-16 09:45] LABS: Phenytoin (Dilantin) Level 15.6 ug/mL (10.0-20.0)
[2024-09-16 09:48] LABS: AST(SGOT) 24 U/L (<=37); Alanine Aminotransfer ALT/SGPT 14 U/L (<=46); Albumin, Serum 3.4 g/dL (3.4-4.8); Alkaline Phosphatase 107 U/L (40-129); Anion Gap 11 (5-15); BUN 24 mg/dL (4-19); Calcium,Total 10.3 mg/dL (7.6-11.0); Carbon Dioxide 27.7 mmol/L (21.0-32.0); Chloride 104 mmol/L (98-108); Creatinine, Serum 1.16 mg/dL (0.70-1.20); EST Glomerular Filtration Rate 62 (>60); Globulin 3.5 g/dL (2.2-4.2); Glucose 110 mg/dL (70-99); Potassium 3.7 mmol/L (3.3-5.1); Protein, Total 6.9 g/dL (5.9-8.4); Sodium Level 142 mmol/L (133-145); Total Bilirubin 0.31 mg/dL (0.00-1.30)
== END ==
LOC: OLS.ACH 04:00
PROVIDERS: PCP Family Medicine; Referring Provider Internal Medicine; Visit Provider Internal Medicine
DX: I13.0 Hypertensive heart and chronic kidney disease with heart failure and stage 1 through stage 4 chronic kidney disease, or unspecified chronic kidney disease (principal); I50.9 Heart failure, unspecified; N18.9 Chronic kidney disease, unspecified; G20.A1 Parkinson's disease without dyskinesia, without mention of fluctuations
CPT/HCPCS: 36415; 80053; 80185; 85027

== ENCOUNTER → 2024-09-24 05:00 | Outpatient (REF) | payer MEDICARE, MEDICAID, SELFPAY | LOC: OLS.ACH 05:00 | PROVIDERS: PCP Family Medicine; Visit Provider Internal Medicine | DX: G40.909 Epilepsy, unspecified, not intractable, without status epilepticus (principal) | CPT/HCPCS: 36415; 80185 ==

== ENCOUNTER → 2024-09-26 05:00 | Outpatient (REF) | payer MEDICARE, MEDICAID, SELFPAY ==
[2024-09-26 08:02] LABS: Phenytoin (Dilantin) Level 12.8 ug/mL (10.0-20.0)
== END ==
LOC: OLS.ACH 05:00
PROVIDERS: PCP Family Medicine; Visit Provider Internal Medicine
DX: G40.909 Epilepsy, unspecified, not intractable, without status epilepticus (principal)
CPT/HCPCS: 36415; 80185

== ENCOUNTER → 2024-09-29 | Outpatient (REF) | payer MEDICARE, MEDICAID, SELFPAY ==
[2024-09-29 10:28] LABS: Cholesterol 112 mg/dL (<=200); High Density Lipoprotein 48 mg/dL; Low Density Lipoprotein Calc. 43 mg/dL; Triglycerides 107 mg/dL; Very Low Density Lipoprotein 21 mg/dL (5-40); cholesterol:hdl ratio screen 2.33
[2024-09-29 10:30] LABS: Vitamin D,25 Hydroxy 36.3 ng/mL (30-100)
== END ==
LOC: OLS.ACH 05:00
PROVIDERS: PCP Family Medicine; Visit Provider Internal Medicine
DX: E78.5 Hyperlipidemia, unspecified (principal); M48.061 Spinal stenosis, lumbar region without neurogenic claudication; N18.30 Chronic kidney disease, stage 3 unspecified
CPT/HCPCS: 36415; 80061; 82306

== ENCOUNTER → 2024-11-25 05:00 | Outpatient (REF) | payer MEDICARE, MEDICAID, SELFPAY ==
[2024-11-25 07:48] LABS: Hematocrit 41.0 % (40-54); Hemoglobin 13.6 g/dL (13.0-16.5); Immature Granulocytes Count 0.020 X10^3/uL (0.0-0.0); Mean Corp Hgb Conc 33.2 g/dL (32-36); Mean Corpuscular Volume 100.2 fL (80-94); Mean Platelet Vol. 10.5 fl (6.2-12.0); NRBC Flagged by Analyzer 0 % (0-5); Platelet Count 174 K/mm3 (150-450); RBC Distribution Width CV 12.4 % (11.6-14.6); RBC Distribution Width SD 45.4 fl (35.1-43.9); Red Blood Count 4.09 M/mm3 (4.6-6.2); White Blood Count 5.6 K/mm3 (4.4-11.0)
[2024-11-25 09:07] LABS: AST(SGOT) 31 U/L (<=37); Alanine Aminotransfer ALT/SGPT 14 U/L (<=46); Albumin, Serum 3.4 g/dL (3.4-4.8); Alkaline Phosphatase 124 U/L (40-129); Anion Gap 9 (5-15); BUN 20 mg/dL (4-19); BUN/Creat Ratio 17.5 RATIO (10-20); Calcium,Total 9.8 mg/dL (7.6-11.0); Carbon Dioxide 28.5 mmol/L (21.0-32.0); Chloride 101 mmol/L (98-108); Globulin 3.0 g/dL (2.2-4.2); Glucose 92 mg/dL (70-99); Potassium 3.7 mmol/L (3.3-5.1)
[2024-11-28 12:08] LABS: KEPPRA (LEVETIRACETAM) 31.5 ug/mL (10.0-40.0)
== END ==
LOC: OLS.ACH 05:00
PROVIDERS: PCP Family Medicine; Visit Provider Internal Medicine
DX: I12.9 Hypertensive chronic kidney disease with stage 1 through stage 4 chronic kidney disease, or unspecified chronic kidney disease (principal); G40.909 Epilepsy, unspecified, not intractable, without status epilepticus; N18.9 Chronic kidney disease, unspecified
CPT/HCPCS: 36415; 80053; 80177; 80185; 85025

== ENCOUNTER → 2025-05-12 05:00 | Outpatient (REF) | payer MEDICAID, SELFPAY ==
--- OUTSIDE RECORDS SUMMARY | 2025-05-12 04:03 | XMS RPT_ITS | CCD ---
Author Organization [facility] Care Team Providers Care Pack Puller Name Role Phone Janis Williamson, , Tran Primary Care Provider KESHA MEJIA Attending Unavailable MERI MORAES Attending Unavailable KESHA MEJIA Attending Unavailable MERI MORAES Attending Unavailable KESHA MEJIA Attending Unavailable MERI MORAES Attending Unavailable Elaine PEARL, Zak Primary Care Provider Unavail able Janis PEARL, Tran Attending Provider Unavailable Janis PEARL, Tran Referring Provider Unavailable Elaine PEARL, Zak Primary Care Provider Unavail able Janis PEARL, Tran Attending Provider Unavailable Deperro GABBY, Tran Attending Unavailable Elaine OLS, Zak Primary Care Unavailable Deperro OLS, Tran Attending Unavailable Elaine OLS, Zak Primary Care Unavailable Deperro GABBY, Tran Attending Unavailable Elaine OLS, Zak Primary Care Unavailable Deperro OLS, Tran Attending Unavailable Elaine OLS, Zak Primary Care Unavailable Deperro OLS, Tran Attending Unavailable Elaine OLS, Zak Primary Care Unavailable Elaine OLS, Zak Primary Care Unavailable Deperro OLS, Tran Attending Unavailable Elaine OLS, Zak Primary Care Unavailable Deperro OLS, Tran Attending Unavailable Elaine OLS, Zak Primary Care Unavailable Deperro OLS, Tran Attending Unavailable Deperro OLS, Tran Referring Unavailable Deperro OLS, Tran Attending Unavailable Elaine OLS, Zak Primary Care Unavailable Deperro OLS, Tran Attending Unavailable Elaine OLS, Zak Primary Care Unavailable Deperro OLS, Tran Attending Unavailable Elaine OLS, Zak Primary Care Unavailable Deperro OLS, Tran Attending Unavailable Deperro OLS, Tran Referring Unavailable Elaine OLS, Zak Primary Care Unavailable Deperro OLS, Tran Attending Unavailable Elaine OLS, Zak Primary Care Unavailable Deperro OLS, Tran Attending Unavailable Zak Novak Primary Care Unavailable de Rafi Sr., Tran Page Primary Care Provider BERRY DAVIS Referring Unavailable DE RAFI TRAN MCMULLEN Primary Care Unavaila ble de Rafi Sr., Tran Page Primary Care Provider BERRY DAVIS Attending Unavailable DE RAFI SR, TRAN PAGE Primary Care Unavaila ble Medications Current Medications Medication Drug Class(es) Dates Sig (Normalized) Sig (Original) [id number] 200 actuat albuterol 0.09 mg/actuat metered dose inhaler (10 sources) beta2-Adrenergic Agonist take 2 puff(s) by inhalation every four hours for wheezing albuterol HFA 90 mcg/act inhaler Inhale 2 puffs every 4 (four) hours if needed for wheezing Active amLODIPine 2.5 mg oral tablet (19 sources) Dihydropyridine Calcium Channel Charanjit Start: 11-25-2024 amLODIPine (NORVASC) 2.5 mg tablet 11/25/2024 Active Start: 08-29-2016 take 1 tablet by amari once daily Amlodipine 2.5 MG tablet Active 2.5 mg PO DAILY 0 August 29, 2016 12:00am ascorbic acid 1000 mg oral tablet (14 sources) Vitamin C Start: 11-25-2024 Ascorbic Acid 1,000 mg tablet 11/25/2024 Active Start: 10-25-2023 Ascorbic Acid (vitamin C) 500 MG tablet 10/25/2023 Active ascorbic acid 60 mg / beta carotene 5000 unt / copper sulfate 40 mg / dl-alpha tocopheryl acetate 30 unt / sodium selenite 0.04 mg / zinc oxide 40 mg oral tablet (11 sources) Vitamin C Multiple Vitamin (Multivitamin Adult) tablet as directed Orally Active aspirin 81 mg chewable tablet (20 sources) Platelet Aggregation Inhibitor, Nonsteroidal Anti-inflammatory Drug Start: 7 take 1 tablet by mouth once daily Aspirin 81 MG tablet,chewable Active 81 mg PO DAILY@0800 June 07, 2016 1:00am aspirin, enteric coated (ASPIRIN, ENTERIC COATED) 81 mg EC tablet Take 81 mg by mouth. Active atorvastatin 40 mg oral tablet (20 sources) HMG-CoA Reductase Inhibitor Start: 08-04-2014 take 1 tablet by mouth at bedtime Atorvastatin 40 MG tablet Active 40 mg PO AT BEDTIME August 04, 2014 12:00am atorvastatin (LI PITOR) 20 mg tablet Take 20 mg by mouth. Active bisacodyl 10 mg rectal suppository (16 sources) Stimulant Laxative Start: 05-13-2018 Bisacodyl 1 0 MG Supp.Rect Active 10 mg RC NEEDED as needed for Constipation May 13, 2018 1:00am Start: 05-13-2018 Bisacodyl Acti ve 10 MG RC NEEDED May 13, 2018 12:00am cephalexin 500 mg oral capsule (16 sources) Cephalosporin Antibacterial Start: 05-13-2018 take 1 capsule by mouth every eight hours Cephalexin 500 MG capsule Active 500 mg PO EVERY 8 HOURS 30 May 13, 2018 1:00am cholecalciferol 1.25 mg oral capsule (14 sources) Vitamin D Start: 11-25-2024 cholecalciferol, Vitamin D3, (VITAMIN D3) 1,250 mcg (50,000 unit) cap capsule 11/25/2024 Active Start: 10-30-2023 cholecalcifero l (Vitamin D-3) 1.25 MG (78703 UT) capsule Take 50,000 Units by mouth 10/30/2023 Active donepezil hydrochloride 10 mg oral tablet (14 sources) Start: 10-27-2023 donepezil (ARICEPT) 10 mg tablet Take 10 mg by mouth. 10/27/2023 Active ergocalciferol 1.25 mg oral capsule (16 sources) Provitamin D2 Compound Start: 08-04-2014 Ergocalciferol (Vitamin D2) (Vitamin D2) 50,000 UNIT capsule Active 90709 U PO EVERY MONTH August 04, 2014 12:00am gemfibrozil 600 mg oral tablet (3 sources) Peroxisome Proliferator Receptor alpha Agonist Start: 05-30-2007 GEMFIBROZIL 600 MG TAB Take one(1) tablet two(2) times daily. 0 05/30/2007 Active levETIRAcetam 750 mg oral tablet (20 sources) Start: 05-13-2018 take 1 tablet by mouth twice daily Levetiracetam 750 MG tablet Active 750 mg PO TWICE A DAY 60 May 13, 2018 1:00am Start: 08-04-2014 take 1 tablet by amari twice daily Levetiracetam 500 MG tablet Active 500 mg PO TWICE A DAY August 04, 2014 12:00am loratadine 10 mg oral tablet (14 sources) loratadine (CLAR ITIN) 10 mg tablet Take 10 mg by mouth. Active magnesium hydroxide 80 mg/ml oral suspension (16 sources) Start: 05-13-2018 Magnesium Hydroxide 30 ML suspension Active May 13, 2018 1:00am melatonin 10 mg extended release oral tablet (16 sources) Start: 06-07-2016 take 5 mg by mouth at bedtime as needed for sleep Melatonin 10 MG tablet Active 5 mg PO AT BEDTIME as needed for sleep 0 June 07, 2016 1:00am Start: 06-07-2016 take 5 mg by mouth at bedtime Melatonin Active 5 MG PO AT BEDTIME 0 June 07, 2016 12:00am mineral oil 0.15 mg/mg / petrolatum 0.83 mg/mg ophthalmic ointment (14 sources) Start: 05-02-2023 white petrolat um-mineral Oil (LUBRIFRESH P.M.) 83-15 % oint 05/02/2023 Active MULTIVITAMIN TAB (3 sources) Start: 05-30-2007 MULTIVITAMIN T AB Take one(1) tablet daily. 0 05/30/2007 Active Multivitamin With Folic Acid (Thera) 1 TABLET tablet (16 sources) Start: 08-04-2014 take 1 tablet by mouth once daily Multivitamin With Folic Acid (Thera) 1 TABLET tablet Active 1 TABLET PO DAILY August 04, 2014 4:24pm Start: 08-04-2014 take 1 tablet by amari th once daily Multivitamin With Folic Acid (Thera) 1 TABLET tablet Active 1 {tbl} PO DAILY August 04, 2014 12:00am Start: 08-04-2014 take 1 tablet by amari th once daily Multivitamin With Folic Acid (Thera) 1 TABLET tablet Active 1 TABLET PO DAILY August 04, 2014 12:00am Start: 08-04-2014 take 1 tablet by amari th once daily Multivitamin With Folic Acid (Thera) 1 TABLET tablet Active 1 TABLET PO DAILY August 03, 2014 11:00pm OLANZapine 10 mg disintegrating oral tablet (20 sources) Atypical Antipsychotic Start: 08-04-2014 take 1 tablet by mouth at bedtime Olanzapine (Zyprexa Zydis) 10 MG tablet,disintegrating Active 10 mg PO AT BEDTIME August 04, 2014 12:00am Start: 05-30-2007 olanzapine(ZYP REXA 7.5 MG TAB) Take one(1) tablet daily at bedtime. 0 05/30/2007 Active take 1 tablet by amari th at bedtime OLANZapine (ZyPREXA) 5 MG tablet Take 5 mg by mouth at bedtime Active phenytoin 50 mg chewable tablet (20 sources) Anti-epileptic Agent Start: 05-13-2018 take 3 tablets by mouth once daily in the morning Phenytoin 50 MG tablet,chewable Active 50 mg PO DIRECTED May 13, 2018 1:00am DO NOT START until 05/17/2018 3 tabs p.o. every morning; 2 tabs p.o. nightly Start: 08-29-2016 End: 05-13-2018 take 3 capsules by mouth once daily Phenytoin Sodium Extended 100 MG capsule Discontinued 300 mg PO DAILY@0800 August 29, 2016 12:00am May 13, 2018 9:12pm Start: 08-29-2016 End: 05-13-2018 take 300 mg by mouth once daily Phenytoin Sodium Exten ded Discontinued 300 MG PO DAILY@0800 August 28, 2016 11:00pm May 13, 2018 8:12pm Start: 08-25-2016 End: 05-13-2018 take 2 capsules by mouth once daily Phenytoin Sodium Extended 100 MG capsule Discontinued 200 mg PO DAILY August 25, 2016 12:00am May 13, 2018 9:12pm Start: 08-25-2016 End: 05-13-2018 take 200 mg by mouth once daily Phenytoin Sodium Exten ded Discontinued 200 MG PO DAILY August 24, 2016 11:00pm May 13, 2018 8:12pm Start: 05-30-2007 End: 12-15-2024 phenytoin sodium extended(DI LANTIN KAPSEAL 100 MG CAP) Two tablets twice daily 0 05/30/2007 12/15/2024 Discontinued phenytoin chewab le (DILANTIN) 50 mg tablet Take 100 mg by mouth. Active polyethylene glycol 3350 52081 mg powder for oral solution (16 sources) Osmotic Laxative Start: 08-29-2016 take 17 g by mouth once daily as needed for constipation Polyethylene Glycol 3350 17 GM powder in packet Active 17 g PO DAILY NEEDED as needed for Constipation 0 August 29, 2016 12:00am microencapsulated potassium chloride 20 meq extended release oral tablet (20 sources) Start: 10-27-2023 potassium chloride ER (KLOR-CON) 20 mEq tablet 10/27/2023 Active Start: 10-27-2023 potassium chlo ride CR (Klor-Con M20) 20 MEQ ER tablet 10/27/2023 Active Start: 08-04-2014 take 2 tablets by mo [facility] once daily Potassium Chloride 10 MEQ tablet Active 20 meq PO DAILY August 04, 2014 12:00am Start: 08-04-2014 End: 08-07-2014 take 1 tablet by mouth at bedtime Potassium Chloride 10 MEQ tablet Discontinued 10 meq PO AT BEDTIME August 04, 2014 12:00am August 07, 2014 2:53pm Start: 08-04-2014 take 20 mEq by mouth once jeremiah y Potassium Chloride Active 20 MEQ PO DAILY August 03, 2014 11:00pm Start: 05-30-2007 End: 12-15-2024 potassium chloride(KLOR-CON 8 MEQ TAB) Take one(1) tablet two(2) times daily. 0 05/30/2007 12/15/2024 Discontinued sennosides, halfway 8.6 mg oral tablet (20 sources) Start: 05-13-2018 take 1 tablet by mouth once daily Sennosides (Senna) 8.6 MG tablet Active 8.6 mg PO DAILY May 13, 2018 1:00am Start: 08-29-2016 take 1 tablet by amari twice daily Sennosides (Amie-Keli) 1 TABLET tablet Active 1 {tbl} PO TWICE A DAY August 29, 2016 12:00am tamsulosin hydrochloride 0.4 mg oral capsule (19 sources) alpha-Adrenergic Charanjit Start: 05-30-2007 TAMSULOSIN SR 0.4 MG 24 HR CAP Take one(1) tablet daily. 0 05/30/2007 Active Valsartan-Hctz 320-12.5 mg Tab (10 sources) Start: 01-02-2016 take 1 tablet by mouth once daily Valsartan-Hctz 320-12.5 mg Tab Active 1 TABLET PO DAILY January 02, 2016 12:56pm Start: 01-02-2016 take 1 tablet by amari once daily Valsartan-Hctz 320-12.5 mg Tab Active 1 TABLET PO DAILY January 02, 2016 12:00am Start: 01-02-2016 take 1 tablet by amari th once daily Valsartan-Hctz 320-12.5 mg Tab Active 1 TABLET PO DAILY January 01, 2016 11:00pm Valsartan-Hctz 320-12.5 mg Tab 320 MG/12.5 MG tablet (6 sources) Start: 01-02-2016 Valsartan-Hctz 320-12.5 mg Tab 320 MG/12.5 MG tablet Active 1 {tbl} PO DAILY January 02, 2016 12:00am 24 hr venlafaxine 75 mg extended release oral capsule (20 sources) Serotonin and Norepinephrine Reuptake Inhibitor Start: 11-25-2024 venlafaxine ER (EFFEXOR XR) 75 mg 24 hr capsule 11/25/2024 Active Start: 08-04-2014 take 3 capsules by m out once daily Venlafaxine Xr (Effexor Xr) 75 MG capsule Active 225 mg PO DAILY August 04, 2014 12:00am Start: 05-30-2007 venlafaxine hc l(EFFEXOR XR 150 MG 24 HR CAP) Take one(1) tablet two(2) times daily. 0 05/30/2007 Active take 1 tablet by amari th once daily venlafaxine (Effexor) 75 MG tablet Take 75 mg by mouth Daily Active Completed/Discontinued Medications Medication Drug Class(es) Dates Sig (Normalized) Sig (Original) calcitriol 0.19496 mg oral capsule (16 sources) Vitamin D3 Analog Start: 01-02-2016 End: 01-04-2016 take 2 capsules by mouth twice daily Calcitriol 0.25 MCG capsule Discontinued 0.5 ug PO TWICE A DAY January 02, 2016 12:00am January 04, 2016 12:44pm Start: 01-02-2016 End: 01-04-2016 take 0.5 ug by mouth twice daily Calcitriol Discontinued 0.5 MCG PO TWICE A DAY January 01, 2016 11:00pm January 04, 2016 11:44am carbidopa 25 mg / levodopa 100 mg oral tablet (20 sources) Aromatic Amino Acid Decarboxylation Inhibitor, Aromatic Amino Acid Start: 12-14-2023 End: 02-22-2024 carbidopa-levodopa (Sinemet) 25-100 MG tablet Indications: Parkinson's disease without dyskinesia, with fluctuating manifestations (CMS/HCC) Take 2 tablet three times a day before meals 180 tablet 3 12/14/2023 02/22/2024 Discontinued Start: 05-13-2018 Carbidopa-Levo dopa 1 TABLET tablet Active 2 {tbl} PO BEFORE MEALS AND AT BEDTIME May 13, 2018 1:00am Start: 05-13-2018 take 2 tablets by mo [facility] at bedtime Carbidopa-Levodopa Active 2 TABLET PO BEFORE MEALS AND AT BEDTIME May 13, 2018 12:00am take 1 tablet by mouth once carb idopa-levodopa (SINEMET 25-100) 25-100 mg per tablet Take 1 tablet by mouth. Active docusate sodium 100 mg oral capsule (16 sources) Start: 06-07-2016 End: 06-07-2016 take 2 capsules by mouth twice daily as needed for constipation Docusate Sodium (Dok) 100 MG capsule Discontinued 200 mg PO TWICE DAILY NEEDED as needed for Constipation 0 June 07, 2016 1:00am June 07, 2016 3:37pm furosemide 40 mg oral tablet (20 sources) Loop Diuretic Start: 08-04-2014 End: 08-29-2016 take 1 tablet by mouth once daily Furosemide 40 MG tablet Discontinued 40 mg PO DAILY August 04, 2014 12:00am August 29, 2016 11:20am Start: 05-30-2007 furosemide(LAS IX 20 MG TAB) Take one(1) tablet daily. 0 05/30/2007 Active hydroCHLOROthiazide 12.5 mg / valsartan 320 mg oral tablet (20 sources) Thiazide Diuretic, Angiotensin 2 Receptor Charanjit Start: 08-04-2014 End: 08-07-2014 Valsartan/Hydrochlorothiazid e (Diovan Hct 320-12.5 Mg Tab) 1 TABLET tablet Discontinued 1 {tbl} PO DAILY August 04, 2014 12:00am August 07, 2014 2:54pm Magnesium (16 sources) Start: 08-04-2014 End: 08-29-2016 take 420 mg by mouth once daily Magnesium Discontinued 420 MG PO DAILY August 04, 2014 2:08pm August 29, 2016 11:20am Start: 08-04-2014 End: 08-29-2016 Magnesium 250 MG tablet Disc ontinued 420 mg PO DAILY August 04, 2014 12:00am August 29, 2016 11:20am Start: 08-04-2014 End: 08-29-2016 take 420 mg by mouth once daily Magnesium Discontinued 420 MG PO DAILY August 04, 2014 12:00am August 29, 2016 11:20am Start: 08-04-2014 End: 08-29-2016 take 420 mg by mouth once daily Magnesium Discontinued 420 MG PO DAILY August 03, 2014 11:00pm August 29, 2016 10:20am simvastatin 20 mg oral tablet (1 source) HMG-CoA Reductase Inhibitor Start: 05-30-2007 End: 12-15-2024 simvastatin(ZOCOR 20 MG TAB) 1/2 tablet daily 0 05/30/2007 12/15/2024 Discontinued valsartan 80 mg oral tablet (1 source) Angiotensin 2 Receptor Charanjit Start: 12-09-2007 End: 12-15-2024 valsartan(DIOVAN 80 MG TAB) Take one(1) tablet daily. 0 12/09/2007 12/15/2024 Discontinued Problems Active Problems Problem Classification Problem Date Documented Date Episodic/Chronic Acute and unspecified renal failure (16 sources) Injury of kidney; Translations: [Acute kidney failure, unspecified] 05-13-2018 Episodic Cancer of prostate (3 sources) Malignant tumor of prostate; Translations: [Malignant neoplasm of prostate] Onset: 06-11-2007 09-16-2024 Chronic Chronic kidney disease (16 sources) Chronic kidney disease stage 3; Translations: [Chronic kidney disease, stage III (moderate)] 05-13-2018 Chronic Congestive heart failure; nonhypertensive (1 source) Heart failure, unspecified; Translations: [Heart failure, unspecified] Onset: 08-21-2024 Chronic Deficiency and other anemia (1 source) Anemia in chronic kidney disease; Translations: [Anemia in chronic kidney disease] Onset: 08-21-2024 Chronic Delirium, dementia, and amnestic and other cognitive disorders (2 sources) Dementia; Translations: [Dementia in other diseases classified elsewhere without behavioral disturbance] Onset: 12-15-2024 12-15-2024 Chronic Disorders of lipid metabolism (17 sources) Hyperlipidemia; Translations: [Hyperlipidemia, unspecified] Onset: 10-17-2024 05-13-2018 Chronic Epilepsy; convulsions (20 sources) Seizure disorder; Translations: [Epilepsy, unspecified, not intractable, without status epilepticus] Onset: 11-08-2023 05-13-2018 Chronic Essential hypertension (16 sources) Benign essential hypertension; Translations: [Essential (primary) hypertension] 05-13-2018 Chronic Hyperplasia of prostate (16 sources) Benign prostatic hyperplasia; Translations: [Benign prostatic hyperplasia without lower urinary tract symptoms] 05-13-2018 Chronic Hypertension with complications and secondary hypertension (3 sources) Hypertensive chronic kidney disease with stage 1 through stage 4 chronic kidney disease, or unspecified chronic kidney disease; Translations: [Hypertensive heart and chronic kidney disease with heart failure and stage 1 through stage 4 chronic kidney disease, or unspecified chronic kidney disease] Onset: 02-22-2024 Chronic Malaise and fatigue (16 sources) Asthenia; Translations: [Weakness] 05-13-2018 Episodic Mood disorders (17 sources) Bipolar disorder; Translations: [Bipolar disorder, unspecified] Onset: 02-22-2024 05-13-2018 Chronic Other aftercare (1 source) Long-term current use of antipsychotic medication; Translations: [Other detention (current) drug therapy] 12-15-2024 Episodic Other aftercare (1 source) Other detention (current) drug therapy; Translations: [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] Onset: 12-15-2024 Episodic Other connective tissue disease (16 sources) Paraparesis; Translations: [Other symptoms and signs involving the musculoskeletal system] 05-13-2018 Episodic Other nervous system disorders (16 sources) Encephalomalacia; Translations: [Other specified disorders of brain] 05-13-2018 Chronic Other nutritional; endocrine; and metabolic disorders (16 sources) Hypercalcemia; Translations: [Hypercalcemia] 05-13-2018 Chronic Parkinson`s disease (1 source) Parkinson`s disease; Translations: [Parkinson's disease without dyskinesia, without mention of fluctuations] Onset: 10-22-2024 Poisoning by other medications and drugs (16 sources) Poisoning by phenytoin; Translations: [Poisoning by hydantoin derivatives, accidental (unintentional), initial encounter] 05-14-2018 Episodic Schizophrenia and other psychotic disorders (1 source) Schizoaffective disorder, depressive type; Translations: [Schizoaffective disorder, depressive type] Onset: 09-26-2024 Chronic Spondylosis; intervertebral disc disorders; other back problems (1 source) Spinal stenosis, lumbar region without neurogenic claudication; Translations: [Spinal stenosis, lumbar region without neurogenic claudication] Onset: 10-17-2024 Episodic Unclassified (19 sources) Parkinson's disease; Translations: [Parkinson's disease without dyskinesia, with fluctuating manifestations (CMS/HCC)] Onset: 11-08-2023 02-22-2024 Chronic Unclassified (4 sources) Parkinsonism; Translations: [Parkinsonism, unspecified Parkinsonism type (HCC)] 12-15-2024 Chronic Unclassified (16 sources) status post AVM removed in [id number] Unclassified (1 source) Parkinsonism, unspecified Parkinsonism type (HCC); Translations: [Parkinsonism, unspecified Parkinsonism type (HCC)] Onset: 12-15-2024 Past or Other Problems Problem Classification Problem Date Documented Da te Episodic/Chronic Fluid and electrolyte disorders (1 source) Hypokalemia; Translations: [Hypokalemia] Onset: 02-22-2024 Episodic Urinary tract infections (17 sources) Urinary tract infectious disease; Translations: [Urinary tract infection, site not specified] Onset: 08-27-2024 05-14-2018 Episodic Results Test Name Value Interpretation Reference Range Facility [facility] ---- SIOBHAN FERRARI ([id number]) 1940 M Date Time Provider Department 01/12/25 BERRY DAVIS During your visit today, we recorded the following information about you: Ana Cheema 01/12/2025 1:48 PM Signed Call received for Berry Davis MD regarding Siobhan Ferrari 1940. Caller: [place] CARTER Patient Identified by Name and : Yes Was permission obtained from patient ? NA Reason for Call: Medication Question Medication: Phenytoin Dosage: 100 / 50 / 100 mg; Frequency: 3 times daily How long have you been taking this medication? unknown Question regarding: Other - nurse asking if patient is to taper off Phenytoin? Preferred pharmacy: [facility] [phone] Last Office Visit: Visit date not found Last [facility] visit: Visit date not found Next scheduled appointment: Visit date not found Best number to reach caller: [phone] Best time to reach caller: any Is it OK to leave a detailed voice message? Yes Ana L Deni Montserrat Solorzano RN 01/12/2025 3:07 PM Signed This RN attempted to reach patient Alaina at first number. The [phone] is not in service. Secondary, mobile number was tried. Able to reach pt at [phone] and he states that he is ready to titrate off of the phenytoin. This RN to relay to TW. We ended call pleasantly. KALEY Mccarthy, RN, BA Berry Davis MD 01/13/2025 10:10 AM Signed I think he is doing the 50 mg chewable tabs. If that's correct, he should taper as follows: - Week 1: 100 mg twice a day - Week 2: 50 mg AM 100 mg PM - Week 3: 50 mg twice a day - Week 4: 50 mg once a day - Then stop If I'm incorrect about the formulation can adjust the taper. Montserrat Solorzano RN 01/14/2025 8:42 AM Signed Plan faxed to [facility] @ [phone] with confirmation. KALEY Mccarthy, RN, BA Allergies As of Date: 01/12/2025 (No Known Allergies) Date Reviewed: 12/15/2024 Reviewed by: Fariba See MA - Fully Assessed Reason for Visit: Medication Question [1478] Prescriptions as of 01/14/2025 - aspirin, enteric coated (ASPIRIN, ENTERIC COATED) 81 mg EC tablet Take 81 mg by mouth. - atorvastatin (LIPITOR) 20 mg tablet Take 20 mg by mouth. - donepezil (ARICEPT) 10 mg tablet Take 10 mg by mouth. - amLODIPine (NORVASC) 2.5 mg tablet - white petrolatum-mineral Oil (LUBRIFRESH P.M.) 83-15 % oint - phenytoin chewable (DILANTIN) 50 mg tablet Take 100 mg by mouth. - Valsartan-hydroCHLO ROthiazide 320-12.5 mg per tablet Take 1 tablet by mouth once daily. - venlafaxine ER (EFFEXOR XR) 75 mg 24 hr capsule - potassium chloride ER (KLOR-CON) 20 mEq tablet - levETIRAcetam (KEPPRA) 750 mg tablet Take 750 mg by mouth. - senna (SENOKOT) 8.6 mg tab 1 (one) time each day at the same time - loratadine (CLARITIN) 10 mg tablet Take 10 mg by mouth. - cholecalciferol, Vitamin D3, (VITAMIN D3) 1,250 mcg (50,000 unit) cap capsule - carbidopa-levodopa (SINEMET 25-100) 25-100 mg per tablet Take 1 tablet by mouth. - Ascorbic Acid 1,000 mg tablet - furosemide(LASIX 20 MG TAB) Take one(1) tablet daily. - GEMFIBROZIL 600 MG TAB Take one(1) tablet two(2) times daily. - olanzapine(ZYPREXA 7.5 MG TAB) Take one(1) tablet daily at bedtime. - TAMSULOSIN SR 0.4 MG 24 HR CAP Take one(1) tablet daily. - venlafaxine hcl(EFFEXOR XR 150 MG 24 HR CAP) Take one(1) tablet two(2) times daily. - MULTIVITAMIN TAB Take one(1) tablet daily. Meds Comments as of 12/09/2007: All medications reviewed today/December 09, 2007 [facility] [employer] Problem List As Of Date 01/12/2025 Noted Resolved MALIGN NEOPL PROSTATE [C61] 06/11/2007 Encounter Status:Closed by MONTSERRAT SOLORZANO on 01/14/25 [facility] Oleg 12-30-2024 [facility] Telephone (NIQ) ---- SIOBHAN FERRARI ([id number]) 1940 M Date Time Provider Department 12/30/24 BERRY DAVIS During your visit today, we recorded the following information about you: Taylor Evans 12/30/2024 11:38 AM Signed Call received for Berry Davis MD regarding Siobhan Ferrari 1940. Caller: Key Patient Identified by Name and : Yes Reason for Call: Medication Question Key from [facility] called the office concerning a Med Change. Key is requesting a callback regarding the following Zyprexa (Olanzapine). Last Office Visit: Visit date not found Last [facility] visit: Visit date not found Next scheduled appointment: Visit date not found Best number to reach caller: [phone] Best time to reach caller: No Is it OK to leave a detailed voice message? No Montserrat Hernandez RN 12/31/2024 9:01 AM Addendum This RN called to obtain more information from [facility]. She states that her call was not completely related to the Zyprexa. Answering company secretary stated her call had to be related to a medication and would not listen to what the call was pertaining to. [facility] is calling to check to see if the EEG had been read? This RN states that results of EEG were read and MCM sent to pt from [facility]. Key states that he does not have access to [facility] as he is on long-term care. We will need to send recommendation to them via fax. To note, Zyprexa dose has been decreased from 5 mg to 2.5 mg. Key wanted to let [facility] know this even though psych is lead. States that the purpose of the visit on 12/15/2024 was for PT/OT as he is losing a lot of function d/t PD. Appears this was not discussed and the forgot during visit. Key states that she gave the patient a letter stating his need for PT/OT and it was to be presented to him at the time of the visit. This RN cannot say where the note is as it was not scanned into the chart and she does not work in the region. Explained that [facility] now has [facility] coverage. [facility] will be faxing the original letter she sent over. She is asking if [facility] can place orders for this? If so, she has provided the fax number below: [phone], KALEY Marroquin, RN, BA Berry Davis MD 12/30/2024 1:30 PM Signed Can you let them know my message re: the EEG, no epileptiform discharges, would suggest they try coming off dilantin if they are open to it. I put the therapy orders in if you can fax them over. Thanks Montserrat Solorzano RN 12/31/2024 9:19 AM Signed Packet with dilantin lowering and PT/OT orders faxed to Key at [facility] with conformation. KALEY Mccarthy, RN, BA Allergies As of Date: 12/30/2024 (No Known Allergies) Date Reviewed: 12/15/2024 Reviewed by: Fariba See MA - Fully Assessed Reason for Visit: Medication Question [1478] Primary Visit Diagnosis:Parkinson ism, unspecified Parkinsonism type (HCC) [G20.C] Order(s):CONSULT TO MECHANIC SENIOR [999398] Order #: [id number]: 1 FUTURE CONSULT TO PHYSICAL THERAPY [9032] Order #: [id number]: 1 FUTURE Prescriptions as of 12/31/2024 - aspirin, enteric coated (ASPIRIN, ENTERIC COATED) 81 mg EC tablet Take 81 mg by mouth. - atorvastatin (LIPITOR) 20 mg tablet Take 20 mg by mouth. - donepezil (ARICEPT) 10 mg tablet Take 10 mg by mouth. - amLODIPine (NORVASC) 2.5 mg tablet - white petrolatum-mineral Oil (LUBRIFRESH P.M.) 83-15 % oint - phenytoin chewable (DILANTIN) 50 mg tablet Take 100 mg by mouth. - Valsartan-hydroCHLO ROthiazide 320-12.5 mg per tablet Take 1 tablet by mouth once daily. - venlafaxine ER (EFFEXOR XR) 75 mg 24 hr capsule - potassium chloride ER (KLOR-CON) 20 mEq tablet - levETIRAcetam (KEPPRA) 750 mg tablet Take 750 mg by mouth. - senna (SENOKOT) 8.6 mg tab 1 (one) time each day at the same time - loratadine (CLARITIN) 10 mg tablet Take 10 mg by mouth. - cholecalciferol, Vitamin D3, (VITAMIN D3) 1,250 mcg (50,000 unit) cap capsule - carbidopa-levodopa (SINEMET 25-100) 25-100 mg per tablet Take 1 tablet by mouth. - Ascorbic Acid 1,000 mg tablet - furosemide(LASIX 20 MG TAB) Take one(1) tablet daily. - GEMFIBROZIL 600 MG TAB Take one(1) tablet two(2) times daily. - olanzapine(ZYPREXA 7.5 MG TAB) Take one(1) tablet daily at bedtime. - TAMSULOSIN SR 0.4 MG 24 HR CAP Take one(1) tablet daily. - venlafaxine hcl(EFFEXOR XR 150 MG 24 HR CAP) Take one(1) tablet two(2) times daily. - MULTIVITAMIN TAB Take one(1) tablet daily. 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) ---- SIOBHAN FERRARI ([id number]) 1940 M Date Time Provider Department 12/15/24 2:[address] [facility] During your visit today, we recorded the following information about you: Pulse Blood pressure 87/minute 149/73 Berry Davis MD 12/15/2024 11:55 PM Signed NEW PATIENT EVALUATION Subjective HPI Siobhan Ferrari is a 84 year old right-handed male who presents for evaluation of PD. Dr. Bruce is the PCP. Here with his . He notes he has had PD for around 12-15 years. Previously following with Dr. Mejia. First symptom was shakiness / difficulty with manual dexterity. Seemed to start in the right hand. They also had noticed gait changes. Has been in a long term since 2017. Was using a walker for at least a few years before going to the [place], canes before that, then using a walker for years at the long term but now in a wheelchair all the time, has a lift chair to go to the bathroom, gets his exercise from wheeling around the hallways and therapy. PT is in process right now however because being held pending this visit. Usually gets put into bed early but then doesn't go to sleep until around 2300. Stretches his legs out, listens to music / TV. Has been on Zyprexa for decades. 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 Was seeing a mental health doctor locally after that, currently has a psychiatry RECOVERY COLLECTOR at the facility listed as being [facility]urtado RECOVERY COLLECTOR. He says sense of smell is OK. No known dream enactment. Has constipation on meds. Memory is seems decent, good with numbers / names / who's related to who. No hallucinations. Carbidopa/levodopa 25/100 TID 0700, 1430, 2030 Donepezil 10 mg QHS Phenytoin 100 / 50 / 100 mg Olanzapine 5 mg QHS Keppra 750 mg BID Venlafaxine 225 mg QHS Medications: Current Outpatient Medications Medication Sig Dispense Refill aspirin, enteric coated (ASPIRIN, ENTERIC COATED) 81 mg EC tablet Take 81 mg by mouth. atorvastatin (LIPITOR) 20 mg tablet Take 20 mg by mouth. donepezil (ARICEPT) 10 mg tablet Take 10 mg by mouth. amLODIPine (NORVASC) 2.5 mg tablet white petrolatum-mineral Oil (LUBRIFRESH P.M.) 83-15 % oint phenytoin chewable (DILANTIN) 50 mg tablet Take 100 mg by mouth. Valsartan-hydroCHLO ROthiazide 320-12.5 mg per tablet Take 1 tablet by mouth once daily. venlafaxine ER (EFFEXOR XR) 75 mg 24 hr capsule potassium chloride ER (KLOR-CON) 20 mEq tablet levETIRAcetam (KEPPRA) 750 mg tablet Take 750 mg by mouth. senna (SENOKOT) 8.6 mg tab 1 (one) time each day at the same time loratadine (CLARITIN) 10 mg tablet Take 10 mg by mouth. cholecalciferol, Vitamin D3, (VITAMIN D3) 1,250 mcg (50,000 unit) cap capsule carbidopa-levodopa (SINEMET 25-100) 25-100 mg per tablet Take 1 tablet by mouth. Ascorbic Acid 1,000 mg tablet furosemide(LASIX 20 MG TAB) Take one(1) tablet daily. 0 venlafaxine hcl(EFFEXOR XR 150 MG 24 HR CAP) Take one(1) tablet two(2) times daily. 0 MULTIVITAMIN TAB Take one(1) tablet daily. 0 GEMFIBROZIL 600 MG TAB Take one(1) tablet two(2) times daily. (Patient not taking: Reported on 12/15/2024) 0 olanzapine(ZYPREXA 7.5 MG TAB) Take one(1) tablet daily at bedtime. (Patient not taking: Reported on 12/15/2024) 0 TAMSULOSIN SR 0.4 MG 24 HR CAP Take one(1) tablet daily. (Patient not taking: Reported on 12/15/2024) 0 No current facility-administer ed medications for this visit. ROS ROS: His ROS was positive for that mentioned in the HPI. Otherwise a 10-point ROS was completed and was negative. ALLERGIES No Known Allergies Past Medical History: left cerebral AVM resection, epilepsy, parkinsonism, psychiatric illness on custodial antipsychotic, HTN Family History:Noncontribu tory Social History: Social History Tobacco Use Smoking status: Never Substance Use Topics Alcohol use: No In [place] Objective 12/15/24 1410 BP: 149/73 BP Site: Left Arm BP Position: Sitting BP Cuff Size: Regular Adult Pulse: 87 SpO2: 92% Physical Examination General Appearance: Well appearing, alert, in no acute distress, well-hydrated, well nourished. Head: Normocephalic Neck: Supple Heart: RRR Mod LE edema Neurologic Examination Mental Status: He is alert. Reg / TVG, December x 3 x, 2024, mon (helped), WORLD -> DL..RLD.. can name simple objects, difficulty with repetition, DR 0/3 (correct category) -> 0/3 -> 3/3. Affect is appropriate. Cranial Nerves: Extraocular movements show full and smooth pursuits. No nystagmus. Right lower quadrant vision impaired can sense motion but not count fingers. Facial sensation is intact. Facial activation is symmetric. Hearing is intact to conversation. There is severe hypomimia. There is mod hypophonia. (more content not included)... Normal [facility] KEPPRA (LEVETIRACETAM)on KEPPRA 31.5 ug/mL Normal 10.0-40.0 [facility] Comment on above: Order Comment: .2 Result Comment: Perf ormed at: - [facility] [address] [id number] Lead Software Development Engineer: Amy Mckeon MD, Phone: [phone] Performed By: #### L [id number], L100.0500, L506.1000, L500.4050 #### [facility] [address] [place], [address] CBC W/Diff, Automatedon 07-0 Absolute Lymph 1.70 X10 3/uL Normal 0.83-4.51 [facility] Comment on above: Order Comment: 202.2 Performed By: #### L [id number], L100.0500, L506.1000, L500.4050 #### [facility] [address] [place], [address] Absolute Neut 3.0 X10 3/uL Normal 2.0-7.7 [facility] Comment on above: Order Comment: 202.2 Performed By: #### L [id number], L100.0500, L506.1000, L500.4050 #### [facility] [address] [place], [address] Basophils/100 WBC (Bld) 0.5 % Normal 0-1 [facility] Comment on above: Order Comment: 202.2 Performed By: #### L [id number], L100.0500, L506.1000, L500.4050 #### [facility] [address] [place], [address] Eosinophils/100 WBC (Bld) 4.1 % Normal 0-5 [facility] Comment on above: Order Comment: 202.2 Performed By: #### L [id number], L100.0500, L506.1000, L500.4050 #### [facility] [address] [place], [address] Erythrocyte distribution width (RBC) [Ratio] 12.4 % Normal 11.6-14.6 [facility] Comment on above: Order Comment: 202.2 Performed By: #### L [id number], L100.0500, L506.1000, L500.4050 #### [facility] [address] [place], [address] Hematocrit (Bld) [Volume fraction] 41.0 % Normal 40-54 [facility] Comment on above: Order Comment: 202.2 Performed By: #### L [id number], L100.0500, L506.1000, L500.4050 #### [facility] [address] [place], [address] Hemoglobin (Bld) [Mass/Vol] 13.6 g/dL Normal 13.0-16.5 [facility] Comment on above: Order Comment: 202.2 Performed By: #### L [id number], L100.0500, L506.1000, L500.4050 #### [facility] [address] [place], [address] IG% 0.400 Normal 0.0-0.9 [facility] Comment on above: Order Comment: 202.2 Result Comment: IG% - Immature Granulocytes (promyelocytes, myelocytes and metamyelocytes) > 1% indicates that a LEFT SHIFT is Present. Performed By: #### L 501.9520, L100.0500, L506.1000, L500.4050 #### [facility] [address] [place], [address] Lymphocytes/100 WBC (Bld) 30.2 % Normal 19-41 [facility] Comment on above: Order Comment: 202.2 Performed By: #### L [id number], L100.0500, L506.1000, L500.4050 #### [facility] [address] [place], [address] MCH (RBC) [Entitic mass] 33.3 pg High 27.0-32.0 [facility] Comment on above: Order Comment: 202.2 Performed By: #### L [id number], L100.0500, L506.1000, L500.4050 #### [facility] [address] [place], [address] MCHC (RBC) [Mass/Vol] 33.2 g/dL Normal 32-36 [facility] Comment on above: Order Comment: 202.2 Performed By: #### L [id number], L100.0500, L506.1000, L500.4050 #### [facility] [address] [place], [address] MCV (RBC) [Entitic vol] 100.2 fL High 80-94 [facility] Comment on above: Order Comment: 202.2 Performed By: #### L [id number], L100.0500, L506.1000, L500.4050 #### [facility] [address] [place], [address] Monocytes/100 WBC (Bld) 11.5 % High 0-10 [facility] Comment on above: Order Comment: 202.2 Performed By: #### L 501.9520, L100.0500, L506.1000, L500.4050 #### [facility] [address] [place], [address] Neutrophils/100 WBC (Bld) 53.3 % Normal 47-70 [facility] Comment on above: Order Comment: 202.2 Performed By: #### L 501.9520, L100.0500, L506.1000, L500.4050 #### [facility] [address] [place], [address] Nucleated RBC (Bld) [#/Vol] 0 10*3/uL Normal 0-5 [facility] Comment on above: Order Comment: 202.2 Performed By: #### L 501.9520, L100.0500, L506.1000, L500.4050 #### [facility] [address] [place], [address] Platelet mean volume (Bld) [Entitic vol] 10.5 fL Normal 6.2-12.0 [facility] Comment on above: Order Comment: 202.2 Performed By: #### L [id number], L100.0500, L506.1000, L500.4050 #### [facility] [address] [place], [address] Platelets (Bld) [#/Vol] 174 10*3/uL Normal 150-450 [facility] Comment on above: Order Comment: 202.2 Performed By: #### L 501.9520, L100.0500, L506.1000, L500.4050 #### [facility] [address] [place], [address] RBC (Bld) [#/Vol] 4.09 10*6/uL Low 4.6-6.2 [facility] Comment on above: Order Comment: 202.2 Performed By: #### L [id number], L100.0500, L506.1000, L500.4050 #### [facility] [address] [place], [address] RDW SD 45.4 fl High 35.1-43.9 [facility] Comment on above: Order Comment: 202.2 Performed By: #### L [id number], L100.0500, L506.1000, L500.4050 #### [facility] [address] [place], [address] WBC (Bld) [#/Vol] 5.6 10*3/uL Normal 4.4-11.0 [facility] Comment on above: Order Comment: 202.2 Performed By: #### L 501.9520, L100.0500, L506.1000, L500.4050 #### [facility] [address] [place], [address] Comprehensive Metabolic Prof [facility] 11-25-2024 Albumin [Mass/Vol] 3.4 g/dL Normal 3.4-4.8 [facility] Comment on above: Order Comment: 202.2 Performed By: #### L 501.9520, L100.0500, L506.1000, L500.4050 #### [facility] [address] [place], [address] Albumin/Globulin [Mass ratio] 1.2 {ratio} Normal 0.9-2.4 [facility] Comment on above: Order Comment: 202.2 Performed By: #### L 501.9520, L100.0500, L506.1000, L500.4050 #### [facility] [address] [place], [address] ALK PHOS 124 U/L Normal 40-129 [facility] Comment on above: Order Comment: 202.2 Performed By: #### L 501.9520, L100.0500, L506.1000, L500.4050 #### [facility] [address] [place], [address] ALT [Catalytic activity/Vol] 14 U/L Normal <=46 [facility] Comment on above: Order Comment: 202.2 Performed By: #### L 501.9520, L100.0500, L506.1000, L500.4050 #### [facility] [address] [place], [address] AST [Catalytic activity/Vol] 31 U/L Normal <=37 [facility] Comment on above: Order Comment: 202.2 Performed By: #### L 501.9520, L100.0500, L506.1000, L500.4050 #### [facility] [address] [place], [address] Bilirubin [Mass/Vol] 0.31 mg/dL Normal 0.00-1.30 [facility] Comment on above: Order Comment: 202.2 Performed By: #### L 501.9520, L100.0500, L506.1000, L500.4050 #### [facility] [address] [place], [address] BUN/CRE 17.5 RATIO Normal 10-20 [facility] Comment on above: Order Comment: 202.2 Performed By: #### L 501.9520, L100.0500, L506.1000, L500.4050 #### [facility] [address] [place], [address] Calcium [Mass/Vol] 9.8 mg/dL Normal 7.6-11.0 [facility] Comment on above: Order Comment: 202.2 Performed By: #### L 501.9520, L100.0500, L506.1000, L500.4050 #### [facility] [address] [place], [address] Chloride [Moles/Vol] 101 mmol/L Normal 98-108 [facility] Comment on above: Order Comment: 202.2 Performed By: #### L 501.9520, L100.0500, L506.1000, L500.4050 #### [facility] [address] [place], [address] CO2 [Moles/Vol] 28.5 mmol/L Normal 21.0-32.0 [facility] Comment on above: Order Comment: 202.2 Performed By: #### L 501.9520, L100.0500, L506.1000, L500.4050 #### [facility] [address] [place], [address] Creatinine [Mass/Vol] 1.12 mg/dL Normal 0.70-1.20 [facility] Comment on above: Order Comment: 202.2 Performed By: #### L 501.9520, L100.0500, L506.1000, L500.4050 #### [facility] [address] [place], [address] GAP 9 Normal 5-15 [facility] Comment on above: Order Comment: 202.2 Performed By: #### L 501.9520, L100.0500, L506.1000, L500.4050 #### [facility] [address] [place], [address] GFR/1.73 sq M.predicted among non-blacks MDRD (S/P/Bld) [Vol rate/Area] 65 mL/min/{1.73_m2} Normal >60 [facility] Comment on above: Order Comment: 202.2 Result Comment: mL/m in/1.73m2 CKD-EPI Creatinine Equation (2020) Performed By: #### L 501.9520, L100.0500, L506.1000, L500.4050 #### [facility] [address] [place], [address] Globulin (S) [Mass/Vol] 3.0 g/dL Normal 2.2-4.2 [facility] Comment on above: Order Comment: 202.2 Performed By: #### L 501.9520, L100.0500, L506.1000, L500.4050 #### [facility] [address] [place], [address] Glucose [Mass/Vol] 92 mg/dL Normal 70-99 [facility] Comment on above: Order Comment: 202.2 Performed By: #### L 501.9520, L100.0500, L506.1000, L500.4050 #### [facility] [address] [place], [address] Potassium [Moles/Vol] 3.7 mmol/L Normal 3.3-5.1 [facility] Comment on above: Order Comment: 202.2 Performed By: #### L 501.9520, L100.0500, L506.1000, L500.4050 #### [facility] [address] [place], [address] Sodium [Moles/Vol] 139 mmol/L Normal 133-145 [facility] Comment on above: Order Comment: 202.2 Performed By: #### L 501.9520, L100.0500, L506.1000, L500.4050 #### [facility] [address] [place], [address] T PROT 6.4 g/dL Normal 5.9-8.4 [facility] Comment on above: Order Comment: 202.2 Performed By: #### L 501.9520, L100.0500, L506.1000, L500.4050 #### [facility] [address] [place], [address] Urea nitrogen [Mass/Vol] 20 mg/dL High 4-19 [facility] Comment on above: Order Comment: 202.2 Performed By: #### L 501.9520, L100.0500, L506.1000, L500.4050 #### [facility] [address] [place], [address] Phenytoin (Dilantin) Levelon 11-25-2024 Phenytoin [Mass/Vol] 10.7 ug/mL Normal 10.0-20.0 [facility] Comment on above: Order Comment: 202.2 Result Comment: Toxi c signs are seldom seen below 15 ug/mL, while nystagmus often appears when serum levels rise above 20 ug/mL. Ataxia is observed most often when serum levels reach 25 to 30 ug/mL and somnolence and dysarthria above 40 ug/mL. At high doses, phenytoin can even cause an increase in the frequency of seizures. Performed By: #### L 501.9520, L100.0500, L506.1000, L500.4050 #### [facility] [address] [place], [address] Calculated very low density lipoprotein (VLDL) cholesterol measurementOrdered By: Tran Bruce on 09-29-2024 Calculated very low density lipoprotein (VLDL) cholesterol measurement 21 mg/dL 5-40 [facility] LDL calc ser/plasOrdered By: Tran Bruce on 09-29-2024 Cholesterol in LDL [Mass/Vol] 43 mg/dL [facility] Comment on above: Xfiqzlrqcy=831-627 m g/dL & Higher Apsu=359 mg/dL or greater Lipid Profileon 09-29-2024 CHOL:HDL 2.33 Normal [facility] Comment on above: Order Comment: Performed By: #### L 501.9520, L100.0500, L506.1000, L500.4050 #### [facility] [address] [place], [address] Cholesterol [Mass/Vol] 112 mg/dL Normal <=200 [facility] Comment on above: Order Comment: Result Comment: Chol esterol level, Desirable <200 mg/dL Borderline high cholesterol 200-239 mg/dL High cholesterol >=240 mg/dL Recommendations of the NCEP Adult Treatment Panel for the following risk-cutoff thresholds for the [place] population. Performed By: #### L 501.9520, L100.0500, L506.1000, L500.4050 #### [facility] [address] [place], [address] Cholesterol in HDL [Mass/Vol] 48 mg/dL Normal [facility] Comment on above: Order Comment: 202.2 Result Comment: Esha onal Cholesterol Education Program (NCEP) guidelines: <40 mg/dL: Low HDL-cholesterol (major risk factor for CHD) >= 60 mg/dL: High HDL-cholesterol (negative risk factor for CHD) HDL-cholesterol is affected by a number of factors, e.g. smoking, exercise, hormones, sex and age. Performed By: #### L 501.9520, L100.0500, L506.1000, L500.4050 #### [facility] [address] [place], [address] Cholesterol in LDL [Mass/Vol] 43 mg/dL Normal [facility] Comment on above: Order Comment: Result Comment: Bord otghoi=743-291 mg/dL Higher Gikg=247 mg/dL or greater Performed By: #### L 501.9520, L100.0500, L506.1000, L500.4050 #### [facility] [address] [place], [address] Cholesterol in VLDL [Mass/Vol] 21 mg/dL Normal 5-40 [facility] Comment on above: Order Comment: Performed By: #### L 501.9520, L100.0500, L506.1000, L500.4050 #### [facility] [address] [place], [address] Triglyceride [Mass/Vol] 107 mg/dL Normal [facility] Comment on above: Order Comment: Result Comment: The drugs N-Acetylcysteine and Metamizole may falsely depress this assay. Normal range: <150 mg/dL Borderline High: 150-199 mg/dL High: 200-499 mg/dL Very High: >500 mg/dL Performed By: #### L [id number], L100.0500, L506.1000, L500.4050 #### [facility] [address] [place], [address] Screening total cholesterol/ high density lipoprotein (HDL) cholesterol ratioOrdered By: Tran Bruce on 09-29-2024 Cholesterol.total/Cholest nahomi in HDL [Mass ratio] 2.33 {ratio} [facility] Serum or plasma cholesterol in HDL measurement (mass/volume)Ordered By: Tran Bruce on 09-29-2024 Cholesterol in HDL [Mass/Vol] 48 mg/dL >40 [facility] Comment on above: National Cholesterol Education Program (NCEP) guidelines:<40 mg/dL: Low HDL-cholesterol (major risk factor for CHD)>= 60 mg/dL: High HDL-cholesterol (negative risk factor for CHD)HDL-cholesterol is affected by a number of factors, e.g. smoking, exercise, hormones, sex and age. Serum or plasma cholesterol measurement (mass/volume)Ordered By: Tran Bruce on 09-29-2024 Cholesterol [Mass/Vol] 112 mg/dL <201 [facility] Comment on above: Cholesterol level, D esirable <200 mg/dLBorderline high cholesterol 200-239 mg/dLHigh cholesterol >=240 mg/dLRecommendations of the NCEP Adult Treatment Panel for the following risk-cutoff thresholds for the [place] population. Triglycerides measurementOrd ered By: Tran Bruce on 09-29-2024 Triglyceride [Mass/Vol] 107 mg/dL <199 [facility] Comment on above: The drugs N-Acetylcy steine and Metamizole may falsely depress this assay. Normal range: <150 mg/dLBorderline High: 150-199 mg/dLHigh: 200-499 mg/dLVery High: >500 mg/dL Vitamin D,25 Hydroxyon 09-29 Vitamin D 25-OH 36.3 ng/mL Normal 30-100 [facility] Comment on above: Order Comment: .2 Result Comment: Jeniffer min D Status Deficiency: <20 ng/mL (50nmol/L) Insufficiency: 20-30 ng/mL (50-75 nmol/L) Sufficiency: 30-100 ng/mL (75-250 nmol/L) Toxicity: >100 ng/mL (>250 nmol/L) Performed By: #### L [id number], L100.0500, L506.1000, L500.4050 #### [facility] [address] [place], [place], [id number] Serum or plasma phenytoin me asurement (mass/volume)Ordered By: Tran Bruce on 09-26-2024 Phenytoin [Mass/Vol] 12.8 ug/mL Normal 10.0-20.0 [facility] Comment on above: Toxic signs are seld om seen below 15 ug/mL, while nystagmus often appears when serum levels rise above 20 ug/mL. Ataxia is observed most often when serum levels reach 25 to 30 ug/mL and somnolence and dysarthria above 40 ug/mL. At high doses, phenytoin can even cause an increase in the frequency of seizures. Order Comment: 201.2 0000 Result Comment: Toxi c signs are seldom seen below 15 ug/mL, while nystagmus often appears when serum levels rise above 20 ug/mL. Ataxia is observed most often when serum levels reach 25 to 30 ug/mL and somnolence and dysarthria above 40 ug/mL. At high doses, phenytoin can even cause an increase in the frequency of seizures. Performed By: #### L 501.7700 #### [facility] [address] [place], [place], [id number] Phenytoin (Dilantin) Levelon 09-24-2024 Phenytoin [Mass/Vol] 13.0 ug/mL Normal 10.0-20.0 [facility] Comment on above: Order Comment: 202.2 Result Comment: Toxi c signs are seldom seen below 15 ug/mL, while nystagmus often appears when serum levels rise above 20 ug/mL. Ataxia is observed most often when serum levels reach 25 to 30 ug/mL and somnolence and dysarthria above 40 ug/mL. At high doses, phenytoin can even cause an increase in the frequency of seizures. Performed By: #### L [id number], L100.0500, L506.1000, L500.4050 #### [facility] [address] [place], [address] Serum or plasma phenytoin me asurement (mass/volume)Ordered By: Tran Bruce on 09-24-2024 Phenytoin [Mass/Vol] 13.0 ug/mL 10.0-20.0 [facility] Comment on above: Toxic signs are seld om seen below 15 ug/mL, while nystagmus often appears when serum levels rise above 20 ug/mL. Ataxia is observed most often when serum levels reach 25 to 30 ug/mL and somnolence and dysarthria above 40 ug/mL. At high doses, phenytoin can even cause an increase in the frequency of seizures. Anion gap in Serum or Plasma Ordered By: Tran Bruce on 09-16-2024 Anion gap [Moles/Vol] 11 mmol/L - [facility] BUN/creatinine ratioOrdered By: Tran Bruce on 09-16-2024 Urea nitrogen/Creatinine [Mass ratio] 21.0 mg/mg High 03-09 [facility] Bilirubin, totalOrdered By: Tran Bruce on 09-16-2024 Bilirubin [Mass/Vol] 0.31 mg/dL 0.00-1.30 [facility] CBC-Complete Blood Cnt No Di ffon 09-16-2024 Erythrocyte distribution width (RBC) [Ratio] 13.4 % Normal 11.6-14.6 [facility] Comment on above: Order Comment: 202.2 Performed By: #### L [id number], L100.0500, L506.1000, L500.4050 #### [facility] [address] [place], [address] Hematocrit (Bld) [Volume fraction] 42.1 % Normal 40-54 [facility] Comment on above: Order Comment: 202.2 Performed By: #### L [id number], L100.0500, L506.1000, L500.4050 #### [facility] [address] [place], [address] Hemoglobin (Bld) [Mass/Vol] 13.7 g/dL Normal 13.0-16.5 [facility] Comment on above: Order Comment: 202.2 Performed By: #### L [id number], L100.0500, L506.1000, L500.4050 #### [facility] [address] [place], [address] MCH (RBC) [Entitic mass] 33.5 pg High 27.0-32.0 [facility] Comment on above: Order Comment: 202.2 Performed By: #### L [id number], L100.0500, L506.1000, L500.4050 #### [facility] [address] [place], [address] MCHC (RBC) [Mass/Vol] 32.5 g/dL Normal 32-36 [facility] Comment on above: Order Comment: 202.2 Performed By: #### L [id number], L100.0500, L506.1000, L500.4050 #### [facility] [address] [place], [address] MCV (RBC) [Entitic vol] 102.9 fL High 80-94 [facility] Comment on above: Order Comment: 202.2 Performed By: #### L [id number], L100.0500, L506.1000, L500.4050 #### [facility] [address] [place], [address] Platelet mean volume (Bld) [Entitic vol] 10.4 fL Normal 6.2-12.0 [facility] Comment on above: Order Comment: 202.2 Performed By: #### L [id number], L100.0500, L506.1000, L500.4050 #### [facility] [address] [place], [address] Platelets (Bld) [#/Vol] 180 10*3/uL Normal 150-450 [facility] Comment on above: Order Comment: 202.2 Performed By: #### L [id number], L100.0500, L506.1000, L500.4050 #### [facility] [address] [place], [address] RBC (Bld) [#/Vol] 4.09 10*6/uL Low 4.6-6.2 [facility] Comment on above: Order Comment: 202.2 Performed By: #### L [id number], L100.0500, L506.1000, L500.4050 #### [facility] [address] [place], [address] RDW SD 51.5 fl High 35.1-43.9 [facility] Comment on above: Order Comment: 202.2 Performed By: #### L [id number], L100.0500, L506.1000, L500.4050 #### [facility] [address] [place], [address] WBC (Bld) [#/Vol] 9.5 10*3/uL Normal 4.4-11.0 [facility] Comment on above: Order Comment: .2 Performed By: #### L [id number], L100.0500, L506.1000, L500.4050 #### [facility] [address] [place], [address] Carbon dioxide, total [Moles /volume] in Central venous bloodOrdered By: Tran Bruce on 09-16-2024 CO2 [Moles/Vol] 27.7 mmol/L 21.0-32.0 [facility] Chloride assayOrdered By: Barba on 09-16-2024 Chloride [Moles/Vol] 104 mmol/L 98-108 [facility] Comprehensive Metabolic Prof ilon 09-16-2024 Albumin [Mass/Vol] 3.4 g/dL Normal 3.4-4.8 [facility] Comment on above: Order Comment: 202.2 Performed By: #### L [id number], L100.0500, L506.1000, L500.4050 #### [facility] [address] [place], [address] Albumin/Globulin [Mass ratio] 1.0 {ratio} Normal 0.9-2.4 [facility] Comment on above: Order Comment: 202.2 Performed By: #### L [id number], L100.0500, L506.1000, L500.4050 #### [facility] [address] [place], [address] ALK PHOS 107 U/L Normal 40-129 [facility] Comment on above: Order Comment: 202.2 Performed By: #### L [id number], L100.0500, L506.1000, L500.4050 #### [facility] [address] [place], [address] ALT [Catalytic activity/Vol] 14 U/L Normal <=46 [facility] Comment on above: Order Comment: 202.2 Performed By: #### L [id number], L100.0500, L506.1000, L500.4050 #### [facility] [address] [place], [address] AST [Catalytic activity/Vol] 24 U/L Normal <=37 [facility] Comment on above: Order Comment: 202.2 Performed By: #### L [id number], L100.0500, L506.1000, L500.4050 #### [facility] [address] [place], [address] Bilirubin [Mass/Vol] 0.31 mg/dL Normal 0.00-1.30 [facility] Comment on above: Order Comment: 202.2 Performed By: #### L [id number], L100.0500, L506.1000, L500.4050 #### [facility] [address] [place], [address] BUN/CRE 21.0 RATIO High 10-20 [facility] Comment on above: Order Comment: 202.2 Performed By: #### L [id number], L100.0500, L506.1000, L500.4050 #### [facility] [address] [place], [address] Calcium [Mass/Vol] 10.3 mg/dL Normal 7.6-11.0 [facility] Comment on above: Order Comment: 202.2 Performed By: #### L [id number], L100.0500, L506.1000, L500.4050 #### [facility] [address] [place], [address] Chloride [Moles/Vol] 104 mmol/L Normal 98-108 [facility] Comment on above: Order Comment: 202.2 Performed By: #### L [id number], L100.0500, L506.1000, L500.4050 #### [facility] [address] [place], [address] CO2 [Moles/Vol] 27.7 mmol/L Normal 21.0-32.0 [facility] Comment on above: Order Comment: 202.2 Performed By: #### L [id number], L100.0500, L506.1000, L500.4050 #### [facility] [address] [place], [address] Creatinine [Mass/Vol] 1.16 mg/dL Normal 0.70-1.20 [facility] Comment on above: Order Comment: 202.2 Performed By: #### L [id number], L100.0500, L506.1000, L500.4050 #### [facility] [address] [place], [address] GAP 11 Normal 5-15 [facility] Comment on above: Order Comment: 202.2 Performed By: #### L [id number], L100.0500, L506.1000, L500.4050 #### [facility] [address] [place], [address] GFR/1.73 sq M.predicted among non-blacks MDRD (S/P/Bld) [Vol rate/Area] 62 mL/min/{1.73_m2} Normal >60 [facility] Comment on above: Order Comment: .2 Result Comment: mL/m in/1.73m2 CKD-EPI Creatinine Equation (2020) Performed By: #### L [id number], L100.0500, L506.1000, L500.4050 #### [facility] [address] [place], [address] Globulin (S) [Mass/Vol] 3.5 g/dL Normal 2.2-4.2 [facility] Comment on above: Order Comment: 202.2 Performed By: #### L [id number], L100.0500, L506.1000, L500.4050 #### [facility] [address] [place], [address] Glucose [Mass/Vol] 110 mg/dL High 70-99 [facility] Comment on above: Order Comment: 202.2 Performed By: #### L [id number], L100.0500, L506.1000, L500.4050 #### [facility] [address] [place], [address] Potassium [Moles/Vol] 3.7 mmol/L Normal 3.3-5.1 [facility] Comment on above: Order Comment: 202.2 Performed By: #### L [id number], L100.0500, L506.1000, L500.4050 #### [facility] [address] [place], [address] Sodium [Moles/Vol] 142 mmol/L Normal 133-145 [facility] Comment on above: Order Comment: 202.2 Performed By: #### L [id number], L100.0500, L506.1000, L500.4050 #### [facility] [address] [place], [address] T PROT 6.9 g/dL Normal 5.9-8.4 [facility] Comment on above: Order Comment: 202.2 Performed By: #### L [id number], L100.0500, L506.1000, L500.4050 #### [facility] [address] [place], [address] Urea nitrogen [Mass/Vol] 24 mg/dL High 4-19 [facility] Comment on above: Order Comment: 202.2 Performed By: #### L [id number], L100.0500, L506.1000, L500.4050 #### [facility] [address] [place], [address] Erythrocyte distribution wid th ratioOrdered By: Tran Bruce on 09-16-2024 Erythrocyte distribution width (RBC) [Ratio] 13.4 % 11.6-14.6 [facility] Erythrocyte distribution wid th standard deviationOrdered By: Tran Bruce on 09-16-2024 Erythrocyte distribution width (RBC) [Ratio] 51.5 fl High 35.1-43.9 [facility] Glomerular filtration rate ( GFR) estimation/1.73 sq m using serum, plasma, or whole bOrdered By: Tran Bruce on 09-16-2024 GFR/1.73 sq M.predicted among non-blacks MDRD (S/P/Bld) [Vol rate/Area] 62 mL/min/{1.73_m2} >60 [facility] Comment on above: mL/min/1.73m2 CKD-EP I Creatinine Equation (2020) Hematocrit Auto (Bld) [Volum e fraction]Ordered By: Tran Bruce on 09-16-2024 Hematocrit (Bld) [Volume fraction] 42.1 % 40-54 [facility] Hemoglobin measurementOrdere d By: Tran Bruce on 09-16-2024 Hemoglobin (Bld) [Mass/Vol] 13.7 g/dL 13.0-16.5 [facility] - Chemistry and C hemistry - challengeOrdered By: Tran Bruce on 09-16-2024 AST [Catalytic activity/Vol] 24 U/L <38 [facility] MCV (mean corpuscular volume ) determinationOrdered By: Tran Bruce on 09-16-2024 MCV (RBC) [Entitic vol] 102.9 fL High 80-94 [facility] Mean corpuscular hemoglobin (MCH) determinationOrdered By: Tran Bruce on 09-16-2024 MCH (RBC) [Entitic mass] 33.5 pg High 27.0-32.0 [facility] Mean corpuscular hemoglobin concentration (MCHC) determinationOrdered By: Tran Bruce on 09-16-2024 MCHC (RBC) [Mass/Vol] 32.5 g/dL 32-36 [facility] Mean platelet volume determi nationOrdered By: Tran Bruce on 09-16-2024 Platelet mean volume (Bld) [Entitic vol] 10.4 fL 6.2-12.0 [facility] Phenytoin (Dilantin) Levelon 09-16-2024 Phenytoin [Mass/Vol] 15.6 ug/mL Normal 10.0-20.0 [facility] Comment on above: Order Comment: Result Comment: Toxi c signs are seldom seen below 15 ug/mL, while nystagmus often appears when serum levels rise above 20 ug/mL. Ataxia is observed most often when serum levels reach 25 to 30 ug/mL and somnolence and dysarthria above 40 ug/mL. At high doses, phenytoin can even cause an increase in the frequency of seizures. Performed By: #### L [id number], L100.0500, L506.1000, L500.4050 #### [facility] [address] [place], [place], [id number] Platelet countOrdered By: Barba on 09-16-2024 Platelets (Bld) [#/Vol] 180 10*3/uL 150-450 [facility] Potassium measurement (mass/ volume)Ordered By: Tran Bruce on 09-16-2024 Potassium (Unsp spec) [Mass/Vol] 3.7 mmol/L 3.3-5.1 [facility] RBC Auto (Bld) [#/Vol]Ordere d By: Tran Bruce on 09-16-2024 RBC (Bld) [#/Vol] 4.09 10*6/uL Low 4.6-6.2 [facility] Serum creatinine measurement (mass/volume)Ordered By: Tran Bruce on 09-16-2024 Creatinine [Mass/Vol] 1.16 mg/dL 0.70-1.20 [facility] Serum globulin measurementOr dered By: Tran Bruce on 09-16-2024 Globulin (S) [Mass/Vol] 3.5 g/dL 2.2-4.2 [facility] Serum glucose measurement (m ass/volume)Ordered By: Tran Bruce on 09-16-2024 Glucose [Mass/Vol] 110 mg/dL High 70-99 [facility] Serum or plasma alanine hastings otransferase (ALT) measurementOrdered By: Tran Bruce on 09-16-2024 ALT [Catalytic activity/Vol] 14 U/L <47 [facility] Serum or plasma albumin angel urement (mass/volume)Ordered By: Tran Bruce on 09-16-2024 Albumin [Mass/Vol] 3.4 g/dL 3.4-4.8 [facility] Serum or plasma albumin/glob ulin mass ratioOrdered By: Tran Bruce on 09-16-2024 Albumin/Globulin [Mass ratio] 1.0 {ratio} 0.9-2.4 [facility] Serum or plasma alkaline tuan sphatase measurementOrdered By: Tran Bruce on 09-16-2024 ALP [Catalytic activity/Vol] 107 U/L 40-129 [facility] Serum or plasma calcium angel urement (mass/volume)Ordered By: Tran Bruce on 09-16-2024 Calcium [Mass/Vol] 10.3 mg/dL 7.6-11.0 [facility] Serum or plasma phenytoin me asurement (mass/volume)Ordered By: Tran Bruce on 09-16-2024 Phenytoin [Mass/Vol] 15.6 ug/mL 10.0-20.0 [facility] Comment on above: Toxic signs are seld om seen below 15 ug/mL, while nystagmus often appears when serum levels rise above 20 ug/mL. Ataxia is observed most often when serum levels reach 25 to 30 ug/mL and somnolence and dysarthria above 40 ug/mL. At high doses, phenytoin can even cause an increase in the frequency of seizures. Serum or plasma urea nitroge n measurement (mass/volume)Ordered By: Tran Bruce on 09-16-2024 Urea nitrogen [Mass/Vol] 24 mg/dL High 4-19 [facility] Sodium levelOrdered By: Tran Bruce on 09-16-2024 Sodium [Moles/Vol] 142 mmol/L 133-145 [facility] Total proteinOrdered By: Joanna Bruce on 09-16-2024 Protein [Mass/Vol] 6.9 g/dL 5.9-8.4 [facility] White blood cell (WBC) count Ordered By: Tran Bruce on 09-16-2024 WBC (Bld) [#/Vol] 9.5 10*3/uL 4.4-11.0 [facility] Phenytoin (Dilantin) Levelon 08-28-2024 Phenytoin [Mass/Vol] 13.1 ug/mL Normal 10.0-20.0 [facility] Comment on above: Order Comment: Result Comment: Toxi c signs are seldom seen below 15 ug/mL, while nystagmus often appears when serum levels rise above 20 ug/mL. Ataxia is observed most often when serum levels reach 25 to 30 ug/mL and somnolence and dysarthria above 40 ug/mL. At high doses, phenytoin can even cause an increase in the frequency of seizures. Performed By: #### L [id number], L100.0500, L506.1000, L500.4050 #### [facility] [address] [place], [place], [address] Phenytoin [Mass/Vol]Ordered By: Tran Bruce on 08-28-2024 Phenytoin (Dilantin) Level 13.1 ug/mL 10.0-20.0 [facility] Comment on above: Toxic signs are seld om seen below 15 ug/mL, while nystagmus often appears when serum levels rise above 20 ug/mL. Ataxia is observed most often when serum levels reach 25 to 30 ug/mL and somnolence and dysarthria above 40 ug/mL. At high doses, phenytoin can even cause an increase in the frequency of seizures. Serum or plasma phenytoin me asurement (mass/volume)Ordered By: Tran Bruce on 08-28-2024 Phenytoin [Mass/Vol] 13.1 ug/mL 10.0-20.0 [facility] Comment on above: Toxic signs are seld om seen below 15 ug/mL, while nystagmus often appears when serum levels rise above 20 ug/mL. Ataxia is observed most often when serum levels reach 25 to 30 ug/mL and somnolence and dysarthria above 40 ug/mL. At high doses, phenytoin can even cause an increase in the frequency of seizures. Phenytoin (Dilantin) Levelon 08-18-2024 Phenytoin [Mass/Vol] 6.9 ug/mL Low 10.0-20.0 [facility] Comment on above: Order Comment: 201 0700 Result Comment: Toxi c signs are seldom seen below 15 ug/mL, while nystagmus often appears when serum levels rise above 20 ug/mL. Ataxia is observed most often when serum levels reach 25 to 30 ug/mL and somnolence and dysarthria above 40 ug/mL. At high doses, phenytoin can even cause an increase in the frequency of seizures. Performed By: #### L 501.7700 #### [facility] [address] [place], [id number] Phenytoin [Mass/Vol]Ordered By: Tran Bruce on 08-18-2024 Phenytoin (Dilantin) Level 6.9 ug/mL Low 10.0-20.0 [facility] Comment on above: Toxic signs are seld om seen below 15 ug/mL, while nystagmus often appears when serum levels rise above 20 ug/mL. Ataxia is observed most often when serum levels reach 25 to 30 ug/mL and somnolence and dysarthria above 40 ug/mL. At high doses, phenytoin can even cause an increase in the frequency of seizures. Serum or plasma phenytoin me asurement (mass/volume)Ordered By: Tran Bruce on 08-18-2024 Phenytoin [Mass/Vol] 6.9 ug/mL Low 10.0-20.0 [facility] Comment on above: Toxic signs are seld om seen below 15 ug/mL, while nystagmus often appears when serum levels rise above 20 ug/mL. Ataxia is observed most often when serum levels reach 25 to 30 ug/mL and somnolence and dysarthria above 40 ug/mL. At high doses, phenytoin can even cause an increase in the frequency of seizures. Urine Cultureon 08-08-2024 [facility] Klebsiella oxytoca [place] Count >100,000 Klebsiella oxytoca: REACTION Ampicillin Islt YANICK >=32 Ampicillin+Sulbac Islt YANICK 4 S Cefepime Islt YANICK <=0.12 S cefTRIAXone Islt YANICK <=0.25 S Ciprofloxacin Islt YANICK <=0.06 S B-Lactamase Extended Susc Islt NEG Gentamicin Islt YANICK <=1 S levoFLOXacin Islt YANICK <=0.12 S Meropenem Islt YANICK <=0.25 S Nitrofurantoin Islt YANICK <=16 S Pip+Tazo Islt YANICK <=4 S TMP SMX Islt YANICK <=20 S Normal [facility] Comment on above: Performed By: #### L [id number], L100.0500, L506.1000, L500.4050 #### [facility] [address] [place] [address], [address] Bilirubin Test strip Ql (U)O rdered By: Tran Bruce on 08-06-2024 Bilirubin Ql (U) Negative Negative [facility] Epithelial cells.squamous LM Ql (Urine sed)Ordered By: rTan Bruce on 08-06-2024 Epithelial cells.squamous LM.HPF (Urine sed) [#/Area] 0 /[HPF] 0-5 [facility] Glucose Ql (U)Ordered By: Barba on 08-06-2024 Urine Glucose (UA) Normal mg/dl Normal [facility] Ketones Test strip Ql (U)Ord ered By: Tran Bruce on 08-06-2024 Ketones Ql (U) Negative Negative [facility] Microscopic analysis of urin e for red blood cells (RBC)Ordered By: Tran Bruce on 08-06-2024 Microscopic analysis of urine for red blood cells (RBC) 0 SEEN /hpf 0-5 [facility] Urine RBC 0 SEEN /hpf 0-5 [facility] Mucus LM Ql (Urine sed)Order ed By: Tran Bruce on 08-06-2024 Mucus Ql (Urine sed) 0 SEEN /hpf [facility] Nitrite Test strip Ql (U)Ord ered By: Tran Bruce on 08-06-2024 Nitrite Ql (U) Positive High Negative [facility] Protein Test strip Ql (U)Ord ered By: Tran Bruce on 08-06-2024 Protein Ql (U) 15 mg/dl High Negative [facility] Squamous epithelial cells de tection in urine sediment by light microscopyOrdered By: Tran Bruce on 08-06-2024 Epithelial cells.squamous LM Ql (Urine sed) 0 SEEN /hpf 0-5 [facility] Urinalysis, Completeon 08-06 RBC 0 SEEN Normal 0-5 [facility] Comment on above: Order Comment: 202.2 Performed By: #### L [id number], L100.0500, L506.1000, L500.4050 #### [facility] [address] [place], [address] BACTERIA 1+ /hpf Normal None Seen [facility] Comment on above: Order Comment: 202.2 Performed By: #### L [id number], L100.0500, L506.1000, L500.4050 #### [facility] [address] [place], [address] WBC 25-50 SEEN Normal 0-5 [facility] Comment on above: Order Comment: 202.2 Performed By: #### L [id number], L100.0500, L506.1000, L500.4050 #### [facility] [address] [place], [address] EPI,SQUAMOUS 0 SEEN Normal 0-5 [facility] Comment on above: Order Comment: 202.2 Performed By: #### L [id number], L100.0500, L506.1000, L500.4050 #### [facility] [address] [place], [address] Mucus Ql (Urine sed) 0 SEEN Normal [facility] Comment on above: Order Comment: 202.2 Performed By: #### L [id number], L100.0500, L506.1000, L500.4050 #### [facility] [address] [place], [address] Urine blood detectionOrdered By: Tran Bruce on 08-06-2024 Urine Occult Blood 10 /ul High Negative [facility] Urine clarityOrdered By: Joanna Bruce on 08-06-2024 Clarity (U) Sl. Cloudy Clear [facility] Urine color determinationOrd ered By: Tran Bruce on 08-06-2024 Color (U) Yellow Yellow [facility] Urine cultureOrdered By: Joanna rBuce on 08-06-2024 Bacteria identified Cx Nom (U) Klebsiella oxytoca Abnormal [facility] Urine glucose detectionOrder ed By: Tran Bruce on 08-06-2024 Glucose Ql (U) Normal mg/dl Normal [facility] Urine leukocyte esterase det ection by dipstickOrdered By: Tran Bruce on 08-06-2024 Leukocyte esterase Test strip Ql (U) 500 /ul High Negative [facility] Urine pHOrdered By: Tran castaneda on 08-06-2024 pH (U) 6.5 [pH] 5.0 - 8.0 [facility] Urine sediment bacteria coun t by microscopy (number/high power field)Ordered By: Tran Bruce on 08-06-2024 Bacteria LM.HPF (Urine sed) [#/Area] 1 /[HPF] None Seen [facility] Urine specific gravity measu rementOrdered By: Tran Bruce on 08-06-2024 Specific gravity (U) [Rel density] 1.010 1.002-1.030 [facility] Urine urobilinogen measureme ntOrdered By: Tran Bruce on 08-06-2024 Urobilinogen Ql (U) Normal mg/dl Normal [facility] Urobilinogen Ql (U)Ordered B y: Tran Bruce on 08-06-2024 Urine Urobilinogen Normal mg/dl Normal [facility] White blood cell countOrdere d By: Tran Bruce on 08-06-2024 Urine WBC 25-50 SEEN /hpf 0-5 [facility] White blood cell count 25-50 SEEN /hpf 0-5 [facility] Absolute lymphocyte countOrd ered By: Tran Bruce on 08-05-2024 Lymphocytes Auto (Unsp spec) [#/Vol] 1.57 10*3/uL 0.83-4.51 [facility] Absolute neutrophil countOrd ered By: Tran Bruce on 08-05-2024 Neutrophils (Bld) [#/Vol] 4.4 10*3/uL 2.0-7.7 [facility] Ammoniaon 08-05-2024 Ammonia (P) [Moles/Vol] 29.5 umol/L Normal 16-60 [facility] Comment on above: Order Comment: .2 Performed By: #### L [id number], L100.0500, L506.1000, L500.4050 #### [facility] [address] [place], [address] Anion gap in Serum or Plasma Ordered By: Tran Bruce on 08-05-2024 Anion gap [Moles/Vol] 12 mmol/L 5-15 [facility] Automated lymphocyte count a s percentage of total leukocytesOrdered By: Tran Bruce on 08-05-2024 Lymphocytes/100 WBC Auto (Unsp spec) 22.2 % 19-41 [facility] BUN/creatinine ratioOrdered By: Tran Bruce on 08-05-2024 Urea nitrogen/Creatinine [Mass ratio] 20.4 mg/mg High 10-20 [facility] Basophil percentageOrdered B y: Tran Bruce on 08-05-2024 Basophils/100 WBC (Bld) 0.6 % 0-1 [facility] Bilirubin, totalOrdered By: Tran Bruce on 08-05-2024 Bilirubin [Mass/Vol] 0.24 mg/dL 0.00-1.30 [facility] CBC W/Diff, Automatedon 07-19 Absolute Lymph 1.57 X10 3/uL Normal 0.83-4.51 [facility] Comment on above: Order Comment: 202.2 Performed By: #### L 501.9520, L100.0500, L506.1000, L500.4050 #### [facility] [address] [place], [address] Absolute Neut 4.4 X10 3/uL Normal 2.0-7.7 [facility] Comment on above: Order Comment: 202.2 Performed By: #### L [id number], L100.0500, L506.1000, L500.4050 #### [facility] [address] [place], [address] Basophils/100 WBC (Bld) 0.6 % Normal 0-1 [facility] Comment on above: Order Comment: 202.2 Performed By: #### L [id number], L100.0500, L506.1000, L500.4050 #### [facility] [address] [place], [address] Eosinophils/100 WBC (Bld) 4.2 % Normal 0-5 [facility] Comment on above: Order Comment: 202.2 Performed By: #### L [id number], L100.0500, L506.1000, L500.4050 #### [facility] [address] [place], [address] Erythrocyte distribution width (RBC) [Ratio] 13.8 % Normal 11.6-14.6 [facility] Comment on above: Order Comment: 202.2 Performed By: #### L [id number], L100.0500, L506.1000, L500.4050 #### [facility] [address] [place], [address] Hematocrit (Bld) [Volume fraction] 39.9 % Low 40-54 [facility] Comment on above: Order Comment: 202.2 Performed By: #### L [id number], L100.0500, L506.1000, L500.4050 #### [facility] [address] [place], [address] Hemoglobin (Bld) [Mass/Vol] 13.1 g/dL Normal 13.0-16.5 [facility] Comment on above: Order Comment: 202.2 Performed By: #### L [id number], L100.0500, L506.1000, L500.4050 #### [facility] [address] [place], [address] IG% 0.400 Normal 0.0-0.9 [facility] Comment on above: Order Comment: 202.2 Result Comment: IG% - Immature Granulocytes (promyelocytes, myelocytes and metamyelocytes) > 1% indicates that a LEFT SHIFT is Present. Performed By: #### L 501.9520, L100.0500, L506.1000, L500.4050 #### [facility] [address] [place], [address] Lymphocytes/100 WBC (Bld) 22.2 % Normal 19-41 [facility] Comment on above: Order Comment: 202.2 Performed By: #### L [id number], L100.0500, L506.1000, L500.4050 #### [facility] [address] [place], [address] MCH (RBC) [Entitic mass] 33.1 pg High 27.0-32.0 [facility] Comment on above: Order Comment: 202.2 Performed By: #### L [id number], L100.0500, L506.1000, L500.4050 #### [facility] [address] [place], [address] MCHC (RBC) [Mass/Vol] 32.8 g/dL Normal 32-36 [facility] Comment on above: Order Comment: 202.2 Performed By: #### L [id number], L100.0500, L506.1000, L500.4050 #### [facility] [address] [place], [address] MCV (RBC) [Entitic vol] 100.8 fL High 80-94 [facility] Comment on above: Order Comment: 202.2 Performed By: #### L [id number], L100.0500, L506.1000, L500.4050 #### [facility] [address] [place], [address] Monocytes/100 WBC (Bld) 10.9 % High 0-10 [facility] Comment on above: Order Comment: 202.2 Performed By: #### L [id number], L100.0500, L506.1000, L500.4050 #### [facility] [address] [place], [address] Neutrophils/100 WBC (Bld) 61.7 % Normal 47-70 [facility] Comment on above: Order Comment: 202.2 Performed By: #### L [id number], L100.0500, L506.1000, L500.4050 #### [facility] [address] [place], [address] Nucleated RBC (Bld) [#/Vol] 0 10*3/uL Normal 0-5 [facility] Comment on above: Order Comment: 202.2 Performed By: #### L [id number], L100.0500, L506.1000, L500.4050 #### [facility] [address] [place], [address] Platelet mean volume (Bld) [Entitic vol] 10.1 fL Normal 6.2-12.0 [facility] Comment on above: Order Comment: 202.2 Performed By: #### L [id number], L100.0500, L506.1000, L500.4050 #### [facility] [address] [place], [address] Platelets (Bld) [#/Vol] 202 10*3/uL Normal 150-450 [facility] Comment on above: Order Comment: 202.2 Performed By: #### L [id number], L100.0500, L506.1000, L500.4050 #### [facility] [address] [place], [address] RBC (Bld) [#/Vol] 3.96 10*6/uL Low 4.6-6.2 [facility] Comment on above: Order Comment: 202.2 Performed By: #### L [id number], L100.0500, L506.1000, L500.4050 #### [facility] [address] [place], [address] RDW SD 51.3 fl High 35.1-43.9 [facility] Comment on above: Order Comment: 202.2 Performed By: #### L [id number], L100.0500, L506.1000, L500.4050 #### [facility] [address] [place], [address] WBC (Bld) [#/Vol] 7.1 10*3/uL Normal 4.4-11.0 [facility] Comment on above: Order Comment: 202.2 Performed By: #### L [id number], L100.0500, L506.1000, L500.4050 #### [facility] [address] [place], [address] Carbon dioxide, total [Moles /volume] in Central venous bloodOrdered By: Tran Bruce on 08-05-2024 CO2 [Moles/Vol] 26.4 mmol/L 21.0-32.0 [facility] Chloride assayOrdered By: Barba on 08-05-2024 Chloride [Moles/Vol] 104 mmol/L 98-108 [facility] Comprehensive Metabolic Prof ilon 08-05-2024 Albumin [Mass/Vol] 3.4 g/dL Normal 3.4-4.8 [facility] Comment on above: Order Comment: 202.2 Performed By: #### L 501.9520, L100.0500, L506.1000, L500.4050 #### [facility] [address] [place], [address] Albumin/Globulin [Mass ratio] 1.1 {ratio} Normal 0.9-2.4 [facility] Comment on above: Order Comment: 202.2 Performed By: #### L [id number], L100.0500, L506.1000, L500.4050 #### [facility] [address] [place], [address] ALK PHOS 116 U/L Normal 40-129 [facility] Comment on above: Order Comment: 202.2 Performed By: #### L [id number], L100.0500, L506.1000, L500.4050 #### [facility] [address] [place], [address] ALT [Catalytic activity/Vol] 8 U/L Normal <=46 [facility] Comment on above: Order Comment: 202.2 Performed By: #### L [id number], L100.0500, L506.1000, L500.4050 #### [facility] [address] [place], [address] AST [Catalytic activity/Vol] 29 U/L Normal <=37 [facility] Comment on above: Order Comment: 202.2 Performed By: #### L [id number], L100.0500, L506.1000, L500.4050 #### [facility] [address] [place], [address] Bilirubin [Mass/Vol] 0.24 mg/dL Normal 0.00-1.30 [facility] Comment on above: Order Comment: 202.2 Performed By: #### L [id number], L100.0500, L506.1000, L500.4050 #### [facility] [address] [place], [address] BUN/CRE 20.4 RATIO High 10-20 [facility] Comment on above: Order Comment: 202.2 Performed By: #### L [id number], L100.0500, L506.1000, L500.4050 #### [facility] [address] [place], [address] Calcium [Mass/Vol] 9.7 mg/dL Normal 7.6-11.0 [facility] Comment on above: Order Comment: 202.2 Performed By: #### L [id number], L100.0500, L506.1000, L500.4050 #### [facility] [address] [place], [address] Chloride [Moles/Vol] 104 mmol/L Normal 98-108 [facility] Comment on above: Order Comment: 202.2 Performed By: #### L [id number], L100.0500, L506.1000, L500.4050 #### [facility] [address] [place], [address] CO2 [Moles/Vol] 26.4 mmol/L Normal 21.0-32.0 [facility] Comment on above: Order Comment: 202.2 Performed By: #### L [id number], L100.0500, L506.1000, L500.4050 #### [facility] [address] [place], [address] Creatinine [Mass/Vol] 1.31 mg/dL High 0.70-1.20 [facility] Comment on above: Order Comment: 202.2 Performed By: #### L 501.9520, L100.0500, L506.1000, L500.4050 #### [facility] [address] [place], [address] GAP 12 Normal 5-15 [facility] Comment on above: Order Comment: 202.2 Performed By: #### L 501.9520, L100.0500, L506.1000, L500.4050 #### [facility] [address] [place], [address] GFR/1.73 sq M.predicted among non-blacks MDRD (S/P/Bld) [Vol rate/Area] 54 mL/min/{1.73_m2} Low >60 [facility] Comment on above: Order Comment: .2 Result Comment: mL/m in/1.73m2 CKD-EPI Creatinine Equation (2020) Performed By: #### L 501.9520, L100.0500, L506.1000, L500.4050 #### [facility] [address] [place], [address] Globulin (S) [Mass/Vol] 3.1 g/dL Normal 2.2-4.2 [facility] Comment on above: Order Comment: 202.2 Performed By: #### L 501.9520, L100.0500, L506.1000, L500.4050 #### [facility] [address] [place], [address] Glucose [Mass/Vol] 94 mg/dL Normal 70-99 [facility] Comment on above: Order Comment: 202.2 Performed By: #### L 501.9520, L100.0500, L506.1000, L500.4050 #### [facility] [address] [place], [address] Potassium [Moles/Vol] 4.0 mmol/L Normal 3.3-5.1 [facility] Comment on above: Order Comment: 202.2 Performed By: #### L [id number], L100.0500, L506.1000, L500.4050 #### [facility] [address] [place], [address] Sodium [Moles/Vol] 142 mmol/L Normal 133-145 [facility] Comment on above: Order Comment: 202.2 Performed By: #### L [id number], L100.0500, L506.1000, L500.4050 #### [facility] [address] [place], [address] T PROT 6.6 g/dL Normal 5.9-8.4 [facility] Comment on above: Order Comment: 202.2 Performed By: #### L [id number], L100.0500, L506.1000, L500.4050 #### [facility] [address] [place], [address] Urea nitrogen [Mass/Vol] 27 mg/dL High 4-19 [facility] Comment on above: Order Comment: 202.2 Performed By: #### L [id number], L100.0500, L506.1000, L500.4050 #### [facility] [address] [place], [address] Eosinophil percentageOrdered By: Tran Bruce on 08-05-2024 Eosinophils/100 WBC (Bld) 4.2 % 0-5 [facility] Erythrocyte distribution wid th (RBC) [Ratio]Ordered By: Tran Bruce on 08-05-2024 Erythrocyte distribution width (RBC) [Entitic vol] 51.3 fL High 35.1-43.9 [facility] Erythrocyte distribution wid th ratioOrdered By: Tran Bruce on 08-05-2024 Erythrocyte distribution width (RBC) [Ratio] 13.8 % 11.6-14.6 [facility] Erythrocyte distribution wid th standard deviationOrdered By: Tran Bruce on 08-05-2024 Erythrocyte distribution width (RBC) [Ratio] 51.3 fl High 35.1-43.9 [facility] GFR/1.73 sq M.predicted mark g non-blacks MDRD (S/P/Bld) [Vol rate/Area]Ordered By: Tran Bruce on 08-05-2024 Estimated GFR (MDRD) Non-Af Amer 54 Low >60 [facility] Comment on above: mL/min/1.73m2 CKD-EP I Creatinine Equation (2020) Glomerular filtration rate ( GFR) estimation/1.73 sq m using serum, plasma, or whole bOrdered By: Tran Bruce on 08-05-2024 GFR/1.73 sq M.predicted among non-blacks MDRD (S/P/Bld) [Vol rate/Area] 54 mL/min/{1.73_m2} Low >60 [facility] Comment on above: mL/min/1.73m2 CKD-EP I Creatinine Equation (2020) Hematocrit Auto (Bld) [Volum e fraction]Ordered By: Tran Bruce on 08-05-2024 Hematocrit (Bld) [Volume fraction] 39.9 % Low 40-54 [facility] Hemoglobin A1con 08-05-2024 HbA1c (Bld) [Mass fraction] 6.2 % Normal <=5.6 [facility] Comment on above: Order Comment: .2 Performed By: #### L 501.9520, L100.0500, L506.1000, L500.4050 #### [facility] [address] [place] [address], [address] Hemoglobin A1c percentageOrd ered By: Tran Bruce on 08-05-2024 HbA1c (Bld) [Mass fraction] 6.2 % >5.7 [facility] Hemoglobin measurementOrdere d By: Tran Bruce on 08-05-2024 Hemoglobin (Bld) [Mass/Vol] 13.1 g/dL 13.0-16.5 [facility] Immature granulocytes/100 WB C Auto (Bld)Ordered By: Tran Bruce on 08-05-2024 Immature granulocytes/100 WBC (Bld) 0.400 % 0.0-0.9 [facility] Comment on above: IG% - Immature Granu locytes (promyelocytes, myelocytes and metamyelocytes) > 1% indicates that a LEFT SHIFT is Present. Laboratory - Chemistry and C hemistry - challengeOrdered By: Tran Bruce on 08-05-2024 AST [Catalytic activity/Vol] 29 U/L <38 [facility] Lymphocytes Auto (Unsp spec) [#/Vol]Ordered By: Tran Bruce on 08-05-2024 Lymphocytes (Bld) [#/Vol] 1.57 10*3/uL 0.83-4.5 1 [facility] Lymphocytes/100 WBC Auto (Un sp spec)Ordered By: Tran Bruce on 08-05-2024 Lymphocytes/100 WBC (Bld) 22.2 % 19-41 [facility] MCV (mean corpuscular volume ) determinationOrdered By: Tran Bruce on 08-05-2024 MCV (RBC) [Entitic vol] 100.8 fL High 80-94 [facility] Mean corpuscular hemoglobin (MCH) determinationOrdered By: Tran Bruce on 08-05-2024 MCH (RBC) [Entitic mass] 33.1 pg High 27.0-32.0 [facility] Mean corpuscular hemoglobin concentration (MCHC) determinationOrdered By: Tran Bruce on 08-05-2024 MCHC (RBC) [Mass/Vol] 32.8 g/dL 32-36 [facility] Mean platelet volume determi nationOrdered By: Tran Bruce on 08-05-2024 Platelet mean volume (Bld) [Entitic vol] 10.1 fL 6.2-12.0 [facility] Monocyte percentageOrdered B y: Tran Bruce on 08-05-2024 Monocytes/100 WBC (Bld) 10.9 % High 0-10 [facility] Neutrophil percentageOrdered By: Tran Bruce on 08-05-2024 Neutrophils/100 WBC (Bld) 61.7 % 47-70 [facility] Nucleated red blood cell per centageOrdered By: Tran Bruce on 08-05-2024 Nucleated RBC/100 WBC (Bld) [Ratio] 0 % 0-5 [facility] Phenytoin (Dilantin) Levelon 08-05-2024 Phenytoin [Mass/Vol] 5.1 ug/mL Low 10.0-20.0 [facility] Comment on above: Order Comment: .2 Result Comment: Toxi c signs are seldom seen below 15 ug/mL, while nystagmus often appears when serum levels rise above 20 ug/mL. Ataxia is observed most often when serum levels reach 25 to 30 ug/mL and somnolence and dysarthria above 40 ug/mL. At high doses, phenytoin can even cause an increase in the frequency of seizures. Performed By: #### L [id number], L100.0500, L506.1000, L500.4050 #### [facility] [address] [place], [address] Phenytoin [Mass/Vol]Ordered By: Tran Bruce on 08-05-2024 Phenytoin (Dilantin) Level 5.1 ug/mL Low 10.0-20.0 [facility] Comment on above: Toxic signs are seld om seen below 15 ug/mL, while nystagmus often appears when serum levels rise above 20 ug/mL. Ataxia is observed most often when serum levels reach 25 to 30 ug/mL and somnolence and dysarthria above 40 ug/mL. At high doses, phenytoin can even cause an increase in the frequency of seizures. Platelet countOrdered By: Barba on 08-05-2024 Platelets (Bld) [#/Vol] 202 10*3/uL 150-450 [facility] Potassium (Unsp spec) [Mass/ Vol]Ordered By: Tran Bruce on 08-05-2024 Potassium [Moles/Vol] 4.0 mmol/L 3.3-5.1 [facility] Potassium measurement (mass/ volume)Ordered By: Tran Bruce on 08-05-2024 Potassium (Unsp spec) [Mass/Vol] 4.0 mmol/L 3.3-5.1 [facility] RBC Auto (Bld) [#/Vol]Ordere d By: Tran Bruce on 08-05-2024 RBC (Bld) [#/Vol] 3.96 10*6/uL Low 4.6-6.2 [facility] Serum creatinine measurement (mass/volume)Ordered By: Tran Bruce on 08-05-2024 Creatinine [Mass/Vol] 1.31 mg/dL High 0.70-1.20 [facility] Serum globulin measurementOr dered By: Tran Bruce on 08-05-2024 Globulin (S) [Mass/Vol] 3.1 g/dL 2.2-4.2 [facility] Serum glucose measurement (m ass/volume)Ordered By: Tran Bruce on 08-05-2024 Glucose [Mass/Vol] 94 mg/dL 70-99 [facility] Serum or plasma alanine hastings otransferase (ALT) measurementOrdered By: Tran Bruce on 08-05-2024 ALT [Catalytic activity/Vol] 8 U/L <47 [facility] Serum or plasma albumin angel urement (mass/volume)Ordered By: Tran Bruce on 08-05-2024 Albumin [Mass/Vol] 3.4 g/dL 3.4-4.8 [facility] Serum or plasma albumin/glob ulin mass ratioOrdered By: Tran Bruce on 08-05-2024 Albumin/Globulin [Mass ratio] 1.1 {ratio} 0.9-2.4 [facility] Serum or plasma alkaline tuan sphatase measurementOrdered By: Tran Bruce on 08-05-2024 ALP [Catalytic activity/Vol] 116 U/L 40-129 [facility] Serum or plasma calcium angel urement (mass/volume)Ordered By: Tran Bruce on 08-05-2024 Calcium [Mass/Vol] 9.7 mg/dL 7.6-11.0 [facility] Serum or plasma phenytoin me asurement (mass/volume)Ordered By: Tran Bruce on 08-05-2024 Phenytoin [Mass/Vol] 5.1 ug/mL Low 10.0-20.0 [facility] Comment on above: Toxic signs are seld om seen below 15 ug/mL, while nystagmus often appears when serum levels rise above 20 ug/mL. Ataxia is observed most often when serum levels reach 25 to 30 ug/mL and somnolence and dysarthria above 40 ug/mL. At high doses, phenytoin can even cause an increase in the frequency of seizures. Serum or plasma urea nitroge n measurement (mass/volume)Ordered By: Tran Bruce on 08-05-2024 Urea nitrogen [Mass/Vol] 27 mg/dL High 4-19 [facility] Sodium levelOrdered By: Tran Bruce on 08-05-2024 Sodium [Moles/Vol] 142 mmol/L 133-145 [facility] TSH DL <= 0.005 mIU/L QnOrde red By: Tran Bruce on 08-05-2024 Thyroid Stimulating Hormone (TSH) 2.400 uIU/mL 0.300-4.200 [facility] TSH Qn 2.400 uIU/mL 0.300-4.200 [facility] Thyroid Stim Hormone (TSH)on 08-05-2024 TSH 2.400 uIU/mL Normal 0.300-4.200 [facility] Comment on above: Order Comment: .2 Performed By: #### L [id number], L100.0500, L506.1000, L500.4050 #### [facility] [address] [place], [address] Total proteinOrdered By: Joanna Bruce on 08-05-2024 Protein [Mass/Vol] 6.6 g/dL 5.9-8.4 [facility] Venous blood ammonia measure mentOrdered By: Tran Bruce on 08-05-2024 Ammonia (P) [Moles/Vol] 29.5 umol/L 16-60 [facility] White blood cell (WBC) count Ordered By: Tran Bruce on 08-05-2024 WBC (Bld) [#/Vol] 7.1 10*3/uL 4.4-11.0 [facility] KEPPRA (LEVETIRACETAM)on KEPPRA 29.9 ug/mL Normal 10.0-40.0 [facility] Comment on above: Order Comment: 201.2 Result Comment: Perf ormed at: [facility], [place] [id number] Lead Software Development Engineer: Amy Mckeon MD, Phone: [phone] Performed By: #### L 501.7700, L3310.0000, L100.0100, L500.4050 #### [facility] [address] [place], [address] Absolute lymphocyte countOrd ered By: Tran Bruce on 06-10-2024 Lymphocytes Auto (Unsp spec) [#/Vol] 1.78 10*3/uL 0.83-4.51 [facility] Absolute neutrophil countOrd ered By: Tran Bruce on 06-10-2024 Neutrophils (Bld) [#/Vol] 3.0 10*3/uL 2.0-7.7 [facility] Albumin to globulin ratioOrd ered By: Tran Bruce on 06-10-2024 Albumin/Globulin [Mass ratio] 0.8 {ratio} Low 0.9-2.4 [facility] Comment on above: Order Comment: 201.2 Performed By: #### L 501.7700, L3310.0000, L100.0100, L500.4050 #### [facility] [address] [place], [place], [id number] Automated blood erythrocyte countOrdered By: Tran Bruce on 06-10-2024 RBC (Bld) [#/Vol] 4.40 10*6/uL Low 4.6-6.2 [facility] Comment on above: Order Comment: 201.2 Performed By: #### L 501.7700, L3310.0000, L100.0100, L500.4050 #### [facility] [address] [place], [address] Automated blood hematocrit ( percentage)Ordered By: Tran Bruce on 06-10-2024 Hematocrit (Bld) [Volume fraction] 43.7 % Normal 40-54 [facility] Comment on above: Order Comment: 201.2 Performed By: #### L 501.7700, L3310.0000, L100.0100, L500.4050 #### [facility] [address] [place], [address] Automated lymphocyte count a s percentage of total leukocytesOrdered By: Tran Bruce on 06-10-2024 Lymphocytes/100 WBC (Bld) 30.8 % Normal - [facility] Comment on above: Order Comment: 201.2 Performed By: #### L 501.7700, L3310.0000, L100.0100, L500.4050 #### [facility] [address] [place], [address] Lymphocytes/100 WBC Auto (Unsp spec) 30.8 % [facility] Basophil percentageOrdered B y: Tran Bruce on 06-10-2024 Basophils/100 WBC (Bld) 0.5 % Normal 0-1 [facility] Comment on above: Order Comment: 201.2 Performed By: #### L 501.7700, L3310.0000, L100.0100, L500.4050 #### [facility] [address] [place], [address] Bilirubin, totalOrdered By: Tran Bruce on 06-10-2024 Bilirubin [Mass/Vol] 0.50 mg/dL Normal 0.20-1.00 [facility] Comment on above: For patients on eltr ombopag therapy, use of [employer] [place] TBIL is not recommended. Order Comment: 201.2 Result Comment: For patients on eltrombopag therapy, use of [employer] [place] TBIL is not recommended. Performed By: #### L 501.7700, L3310.0000, L100.0100, L500.4050 #### [facility] [address] [place], [address] Blood urea nitrogen (BUN)/cr eatinine ratioOrdered By: Tran Bruce on 06-10-2024 Urea nitrogen/Creatinine [Mass ratio] 20.3 mg/mg High 10-20 [facility] CBC W/Diff, Automatedon 01-2 Absolute Lymph 1.78 X10 3/uL Normal 0.83-4.51 [facility] Comment on above: Order Comment: 201.2 Performed By: #### L 501.7700, L3310.0000, L100.0100, L500.4050 #### [facility] [address] [place], [address] Absolute Neut 3.0 X10 3/uL Normal 2.0-7.7 [facility] Comment on above: Order Comment: 201.2 Performed By: #### L 501.7700, L3310.0000, L100.0100, L500.4050 #### [facility] [address] [place], [address] IG% 0.200 Normal 0.0-0.9 [facility] Comment on above: Order Comment: 201.2 Result Comment: IG% - Immature Granulocytes (promyelocytes, myelocytes and metamyelocytes) > 1% indicates that a LEFT SHIFT is Present. Performed By: #### L 501.7700, L3310.0000, L100.0100, L500.4050 #### [facility] [address] [place], [address] Nucleated RBC (Bld) [#/Vol] 0 10*3/uL Normal 0-5 [facility] Comment on above: Order Comment: 201.2 Performed By: #### L 501.7700, L3310.0000, L100.0100, L500.4050 #### [facility] [address] [place], [address] RDW SD 47.7 fl High 35.1-43.9 [facility] Comment on above: Order Comment: 201.2 Performed By: #### L 501.7700, L3310.0000, L100.0100, L500.4050 #### [facility] [address] [place], [address] Carbon dioxide measurementOr dered By: Tran Bruce on 06-10-2024 CO2 [Moles/Vol] 31.0 mmol/L Normal 21.0-32.0 [facility] [facility] Comment on above: Order Comment: 201.2 Performed By: #### L 501.7700, L3310.0000, L100.0100, L500.4050 #### [facility] [address] [place], [address] Chloride measurementOrdered By: Tran Bruce on 06-10-2024 Chloride [Moles/Vol] 100 mmol/L Normal 98-107 [facility] Comment on above: Order Comment: 201.2 Performed By: #### L 501.7700, L3310.0000, L100.0100, L500.4050 #### [facility] [address] [place], [address] Comprehensive Metabolic Prof ilon 06-10-2024 ALK P 146 U/L High 45-117 [facility] Comment on above: Order Comment: 201.2 Performed By: #### L 501.7700, L3310.0000, L100.0100, L500.4050 #### [facility] [address] [place], [address] BUN/CRE 20.3 RATIO High 10-20 [facility] Comment on above: Order Comment: 201.2 Performed By: #### L 501.7700, L3310.0000, L100.0100, L500.4050 #### [facility] [address] [place], [address] CA,Total 10.2 mg/dL High 8.5-10.1 [facility] Comment on above: Order Comment: 201.2 Performed By: #### L 501.7700, L3310.0000, L100.0100, L500.4050 #### [facility] [address] [place], [address] EST GFR - AA 76 mL/min Normal >60 [facility] Comment on above: Order Comment: 201.2 Result Comment: Afri can Austrian GFR Calc Performed By: #### L 501.7700, L3310.0000, L100.0100, L500.4050 #### [facility] [address] [place], [address] GAP 7 Normal 5-15 [facility] Comment on above: Order Comment: 201.2 Performed By: #### L 501.7700, L3310.0000, L100.0100, L500.4050 #### [facility] [address] [place], [address] T PROT 7.3 g/dL Normal 6.4-8.2 [facility] Comment on above: Order Comment: 201.2 Performed By: #### L 501.7700, L3310.0000, L100.0100, L500.4050 #### [facility] [address] [place], [address] Comprehensive Metabolic Prof ilOrdered By: Tran Bruce on 06-10-2024 AST [Catalytic activity/Vol] 29 U/L Normal 15-37 [facility] Comment on above: Order Comment: 201.2 Performed By: #### L 501.7700, L3310.0000, L100.0100, L500.4050 #### [facility] [address] [place], [address] Eosinophil percentageOrdered By: Tran Bruce on 06-10-2024 Eosinophils/100 WBC (Bld) 3.6 % Normal 0-5 [facility] Comment on above: Order Comment: 201.2 Performed By: #### L 501.7700, L3310.0000, L100.0100, L500.4050 #### [facility] [address] [place], [address] Erythrocyte distribution wid th (RBC) [Ratio]Ordered By: Tran Bruce on 06-10-2024 Erythrocyte distribution width (RBC) [Entitic vol] 47.7 fL High 35.1-43.9 [facility] Erythrocyte distribution wid th ratioOrdered By: Tran Bruce on 06-10-2024 Erythrocyte distribution width (RBC) [Ratio] 13.1 % Normal 11.6-14.6 [facility] Comment on above: Order Comment: 201.2 Performed By: #### L 501.7700, L3310.0000, L100.0100, L500.4050 #### [facility] [address] [place], [address] Erythrocyte distribution wid th standard deviationOrdered By: Tran Bruce on 06-10-2024 Erythrocyte distribution width (RBC) [Ratio] 47.7 fl High 35.1-43.9 [facility] Estimated glomerular filtrat ion rate (GFR) AmericanOrdered By: Tran Bruce on 06-10-2024 Estimated GFR (MDRD) Amer 76 mL/min >60 [facility] Comment on above: GFR Calc Glomerular filtration rate ( GFR) estimationOrdered By: Tran Bruce on 06-10-2024 GFR/1.73 sq M.predicted among non-blacks MDRD (S/P/Bld) [Vol rate/Area] 63 mL/min/{1.73_m2} Normal >60 [facility] Comment on above: Non- GFR Calc Order Comment: 201.2 Result Comment: Non- GFR Calc Performed By: #### L 501.7700, L3310.0000, L100.0100, L500.4050 #### [facility] [address] [place], [address] Estimated GFR (MDRD) Non-Af Amer 63 mL/min >60 [facility] Comment on above: Non- GFR Calc Glucose measurementOrdered B y: Tran Bruce on 06-10-2024 Glucose [Mass/Vol] 109 mg/dL High 74-106 [facility] Comment on above: Fasting Glucose resu lt from 100 to 125 mg/dL suggests IMPAIRED HOMEOSTASIS per A.D.A. criteria. Order Comment: 201.2 Result Comment: Fast ing Glucose result from 100 to 125 mg/dL suggests IMPAIRED HOMEOSTASIS per A.D.A. criteria. Performed By: #### L 501.7700, L3310.0000, L100.0100, L500.4050 #### [facility] [address] [place], [place], [address] Hemoglobin measurementOrdere d By: Tran Bruce on 06-10-2024 Hemoglobin (Bld) [Mass/Vol] 14.4 g/dL Normal 13.0-16.5 [facility] Comment on above: Order Comment: 201.2 Performed By: #### L 501.7700, L3310.0000, L100.0100, L500.4050 #### [facility] [address] [place], [place], [address] Immature granulocytes/100 WB C Auto (Bld)Ordered By: Tran Bruce on 06-10-2024 Immature granulocytes/100 WBC (Bld) 0.200 % 0.0-0.9 [facility] Comment on above: IG% - Immature Granu locytes (promyelocytes, myelocytes and metamyelocytes) > 1% indicates that a LEFT SHIFT is Present. LevetiracetamOrdered By: Joanna Bruce on 06-10-2024 Levetiracetam (Keppra) Level 29.9 ug/mL 10.0-40.0 [facility] Comment on above: Performed at: [facility] [employer] [facility] [employer] [address] [id number] Director: Amy Mckeon MD, Phone: [phone] levETIRAcetam [Mass/Vol] 29.9 ug/mL 10.0-40.0 [facility] Comment on above: Performed at: [facility] [employer] [facility] [employer] [address] [id number] Director: Amy Mckeon MD, Phone: [phone] Lymphocytes Auto (Unsp spec) [#/Vol]Ordered By: Tran Bruce on 06-10-2024 Lymphocytes (Bld) [#/Vol] 1.78 10*3/uL 0.83-4.5 1 [facility] MCV (mean corpuscular volume ) determinationOrdered By: Tran Bruce on 06-10-2024 MCV (RBC) [Entitic vol] 99.3 fL High 80-94 [facility] Comment on above: Order Comment: 201.2 Performed By: #### L 501.7700, L3310.0000, L100.0100, L500.4050 #### [facility] [address] [place], [address] Mean corpuscular hemoglobin (MCH) determinationOrdered By: Tran Bruce on 06-10-2024 MCH (RBC) [Entitic mass] 32.7 pg High 27.0-32.0 [facility] Comment on above: Order Comment: 201.2 Performed By: #### L 501.7700, L3310.0000, L100.0100, L500.4050 #### [facility] [address] [place], [place], [id number] Mean corpuscular hemoglobin concentration (MCHC) determinationOrdered By: Tran Bruce on 06-10-2024 MCHC (RBC) [Mass/Vol] 33.0 g/dL Normal 32-36 [facility] Comment on above: Order Comment: 201.2 Performed By: #### L 501.7700, L3310.0000, L100.0100, L500.4050 #### [facility] [address] [place], [address] Mean platelet volume determi nationOrdered By: Tran Bruce on 06-10-2024 Platelet mean volume (Bld) [Entitic vol] 10.0 fL Normal 6.2-12.0 [facility] Comment on above: Order Comment: 201.2 Performed By: #### L 501.7700, L3310.0000, L100.0100, L500.4050 #### [facility] [address] [place], [address] Monocyte percentageOrdered B y: Tran Bruce on 06-10-2024 Monocytes/100 WBC (Bld) 12.3 % High 0-10 [facility] Comment on above: Order Comment: 201.2 Performed By: #### L 501.7700, L3310.0000, L100.0100, L500.4050 #### [facility] [address] [place], [address] Neutrophil percentageOrdered By: Tran Bruce on 06-10-2024 Neutrophils/100 WBC (Bld) 52.6 % Normal 47-70 [facility] Comment on above: Order Comment: .2 Performed By: #### L 501.7700, L3310.0000, L100.0100, L500.4050 #### [facility] [address] [place], [address] Nucleated red blood cell per centageOrdered By: Tran Bruce on 06-10-2024 Nucleated RBC/100 WBC (Bld) [Ratio] 0 % 0-5 [facility] Phenytoin (Dilantin) Levelon 06-10-2024 PHENYTOIN 9.3 mL Low 10.0-20.0 [facility] Comment on above: Order Comment: 201.2 0000 Performed By: #### L 501.7700, L3310.0000, L100.0100, L500.4050 #### [facility] [address] [place], [address] Phenytoin [Mass/Vol]Ordered By: Tran Bruce on 06-10-2024 Phenytoin (Dilantin) Level 9.3 mL Low 10.0-20.0 [facility] Platelet countOrdered By: Barba on 06-10-2024 Platelets (Bld) [#/Vol] 208 10*3/uL Normal 150-450 [facility] Comment on above: Order Comment: 201.2 Performed By: #### L 501.7700, L3310.0000, L100.0100, L500.4050 #### [facility] [address] [place], [address] Potassium measurementOrdered By: Tran Bruce on 06-10-2024 Potassium [Moles/Vol] 3.7 mmol/L Normal 3.5-5.1 [facility] Comment on above: Order Comment: 201.2 Performed By: #### L 501.7700, L3310.0000, L100.0100, L500.4050 #### [facility] [address] [place], [address] Serum anion gap measurementO rdered By: Tran Bruce on 06-10-2024 Anion gap [Moles/Vol] 7 mmol/L 5-15 [facility] Serum globulin measurementOr dered By: Tran Bruce on 06-10-2024 Globulin (S) [Mass/Vol] 4.0 g/dL Normal 2.2-4.2 [facility] Comment on above: Order Comment: 201.2 Performed By: #### L 501.7700, L3310.0000, L100.0100, L500.4050 #### [facility] [address] [place], [address] Serum or plasma alanine hastings otransferase (ALT) measurementOrdered By: Tran Bruce on 06-10-2024 ALT [Catalytic activity/Vol] 12 U/L Low 16-61 [facility] Comment on above: Order Comment: 201.2 Performed By: #### L 501.7700, L3310.0000, L100.0100, L500.4050 #### [facility] [address] [place], [address] Serum or plasma albumin angel urement (mass/volume)Ordered By: Tran Bruce on 06-10-2024 Albumin [Mass/Vol] 3.3 g/dL Normal 3.2-5.0 [facility] Comment on above: Order Comment: 201.2 Performed By: #### L 501.7700, L3310.0000, L100.0100, L500.4050 #### [facility] [address] [place], [address] Serum or plasma alkaline tuan sphatase measurementOrdered By: Trna Bruce on 06-10-2024 ALP [Catalytic activity/Vol] 146 U/L High 45-117 [facility] Serum or plasma calcium angel urement (mass/volume)Ordered By: Trangeorgina Bruce on 06-10-2024 Calcium [Mass/Vol] 10.2 mg/dL High 8.5-10.1 [facility] Serum or plasma creatinine m easurement (mass/volume)Ordered By: Tran Bruce on 06-10-2024 Creatinine [Mass/Vol] 1.18 mg/dL Normal 0.70-1.30 [facility] Comment on above: The validity of the calculated GFR & GFRAA in patients over 70 years has not been determined. Clinical correlation is essential. Order Comment: 201.2 Result Comment: The validity of the calculated GFR GFRAA in patients over 70 years has not been determined. Clinical correlation is essential. Performed By: #### L 501.7700, L3310.0000, L100.0100, L500.4050 #### [facility] [address] [place], [address] Serum or plasma phenytoin le maicol (mass/volume)Ordered By: Tran Bruce on 06-10-2024 Phenytoin [Mass/Vol] 9.3 mL Low 10.0-20.0 [facility] Serum or plasma urea nitroge n measurement (mass/volume)Ordered By: Tran Bruce on 06-10-2024 Urea nitrogen [Mass/Vol] 24 mg/dL High 7-18 [facility] Comment on above: Order Comment: 201.2 Performed By: #### L 501.7700, L3310.0000, L100.0100, L500.4050 #### [facility] [address] [place], [address] Sodium levelOrdered By: Tran Bruce on 06-10-2024 Sodium [Moles/Vol] 138 mmol/L Normal 136-145 [facility] Comment on above: Order Comment: 201.2 Performed By: #### L 501.7700, L3310.0000, L100.0100, L500.4050 #### [facility] [address] [place], [address] Total proteinOrdered By: Joanna Bruce on 06-10-2024 Protein [Mass/Vol] 7.3 g/dL 6.4-8.2 [facility] White blood cell (WBC) count Ordered By: Tran Bruce on 06-10-2024 WBC (Bld) [#/Vol] 5.8 10*3/uL Normal 4.4-11.0 [facility] Comment on above: Order Comment: 201.2 Performed By: #### L 501.7700, L3310.0000, L100.0100, L500.4050 #### [facility] [address] [place], [address] CBC-Complete Blood Cnt No ffon 03-12-2024 Erythrocyte distribution width (RBC) [Ratio] 12.7 % Normal 11.6-14.6 [facility] Comment on above: Order Comment: 202.2 Performed By: #### L 501.9520, L100.0500, L506.1000, L500.4050 #### [facility] [address] [place], [address] Hematocrit (Bld) [Volume fraction] 40.7 % Normal 40-54 [facility] Comment on above: Order Comment: 202.2 Performed By: #### L 501.9520, L100.0500, L506.1000, L500.4050 #### [facility] [address] [place], [address] Hemoglobin (Bld) [Mass/Vol] 13.2 g/dL Normal 13.0-16.5 [facility] Comment on above: Order Comment: 202.2 Performed By: #### L 501.9520, L100.0500, L506.1000, L500.4050 #### [facility] [address] [place], [address] MCH (RBC) [Entitic mass] 32.5 pg High 27.0-32.0 [facility] Comment on above: Order Comment: 202.2 Performed By: #### L 501.9520, L100.0500, L506.1000, L500.4050 #### [facility] [address] [place], [address] MCHC (RBC) [Mass/Vol] 32.4 g/dL Normal 32-36 [facility] Comment on above: Order Comment: 202.2 Performed By: #### L 501.9520, L100.0500, L506.1000, L500.4050 #### [facility] [address] [place], [address] MCV (RBC) [Entitic vol] 100.2 fL High 80-94 [facility] Comment on above: Order Comment: 202.2 Performed By: #### L 501.9520, L100.0500, L506.1000, L500.4050 #### [facility] [address] [place], [address] Platelet mean volume (Bld) [Entitic vol] 10.3 fL Normal 6.2-12.0 [facility] Comment on above: Order Comment: 202.2 Performed By: #### L 501.9520, L100.0500, L506.1000, L500.4050 #### [facility] [address] [place], [address] Platelets (Bld) [#/Vol] 173 10*3/uL Normal 150-450 [facility] Comment on above: Order Comment: 202.2 Performed By: #### L 501.9520, L100.0500, L506.1000, L500.4050 #### [facility] [address] [place], [address] RBC (Bld) [#/Vol] 4.06 10*6/uL Low 4.6-6.2 [facility] Comment on above: Order Comment: 202.2 Performed By: #### L [id number], L100.0500, L506.1000, L500.4050 #### [facility] [address] [place], [address] RDW SD 46.9 fl High 35.1-43.9 [facility] Comment on above: Order Comment: 202.2 Performed By: #### L [id number], L100.0500, L506.1000, L500.4050 #### [facility] [address] [place], [address] WBC (Bld) [#/Vol] 5.9 10*3/uL Normal 4.4-11.0 [facility] Comment on above: Order Comment: 202.2 Performed By: #### L 501.9520, L100.0500, L506.1000, L500.4050 #### [facility] [address] [place], [address] Comprehensive Metabolic Prof [facility] 03-12-2024 Albumin [Mass/Vol] 2.8 g/dL Low 3.2-5.0 [facility] Comment on above: Order Comment: 202.2 Performed By: #### L 501.9520, L100.0500, L506.1000, L500.4050 #### [facility] [address] [place], [address] Albumin/Globulin [Mass ratio] 0.7 {ratio} Low 0.9-2.4 [facility] Comment on above: Order Comment: 202.2 Performed By: #### L [id number], L100.0500, L506.1000, L500.4050 #### [facility] [address] [place], [address] ALK P 122 U/L High 45-117 [facility] Comment on above: Order Comment: 202.2 Performed By: #### L [id number], L100.0500, L506.1000, L500.4050 #### [facility] [address] [place], [address] ALT [Catalytic activity/Vol] 33 U/L Normal 16-61 [facility] Comment on above: Order Comment: 202.2 Performed By: #### L [id number], L100.0500, L506.1000, L500.4050 #### [facility] [address] [place], [address] AST [Catalytic activity/Vol] 23 U/L Normal 15-37 [facility] Comment on above: Order Comment: 202.2 Performed By: #### L 501.9520, L100.0500, L506.1000, L500.4050 #### [facility] [address] [place], [address] Bilirubin [Mass/Vol] 0.20 mg/dL Normal 0.20-1.00 [facility] Comment on above: Order Comment: 202.2 Result Comment: For patients on eltrombopag therapy, use of Dimension [place] TBIL is not recommended. Performed By: #### L 501.9520, L100.0500, L506.1000, L500.4050 #### [facility] [address] [place], [address] BUN/CRE 23.7 RATIO High 10-20 [facility] Comment on above: Order Comment: 202.2 Performed By: #### L 501.9520, L100.0500, L506.1000, L500.4050 #### [facility] [address] [place], [address] CA,Total 10.1 mg/dL Normal 8.5-10.1 [facility] Comment on above: Order Comment: .2 Performed By: #### L 501.9520, L100.0500, L506.1000, L500.4050 #### [facility] [address] [place], [address] Chloride [Moles/Vol] 105 mmol/L Normal 98-107 [facility] Comment on above: Order Comment: .2 Performed By: #### L 501.9520, L100.0500, L506.1000, L500.4050 #### [facility] [address] [place], [address] CO2 [Moles/Vol] 31.0 mmol/L Normal 21.0-32.0 [facility] Comment on above: Order Comment: .2 Performed By: #### L 501.9520, L100.0500, L506.1000, L500.4050 #### [facility] [address] [place], [address] Creatinine [Mass/Vol] 1.18 mg/dL Normal 0.70-1.30 [facility] Comment on above: Order Comment: . Result Comment: The validity of the calculated GFR GFRAA in patients over 70 years has not been determined. Clinical correlation is essential. Performed By: #### L 501.9520, L100.0500, L506.1000, L500.4050 #### [facility] [address] [place], [address] EST GFR - AA 76 mL/min Normal >60 [facility] Comment on above: Order Comment: . Result Comment: Afri can Austrian GFR Calc Performed By: #### L 501.9520, L100.0500, L506.1000, L500.4050 #### [facility] [address] [place], [address] GAP 5 Normal 5-15 [facility] Comment on above: Order Comment: .2 Performed By: #### L 501.9520, L100.0500, L506.1000, L500.4050 #### [facility] [address] [place], [address] GFR/1.73 sq M.predicted among non-blacks MDRD (S/P/Bld) [Vol rate/Area] 63 mL/min/{1.73_m2} Normal >60 [facility] Comment on above: Order Comment: .2 Result Comment: Non- GFR Calc Performed By: #### L 501.9520, L100.0500, L506.1000, L500.4050 #### [facility] [address] [place], [address] Globulin (S) [Mass/Vol] 3.8 g/dL Normal 2.2-4.2 [facility] Comment on above: Order Comment: .2 Performed By: #### L 501.9520, L100.0500, L506.1000, L500.4050 #### [facility] [address] [place], [address] Glucose [Mass/Vol] 101 mg/dL Normal 74-106 [facility] Comment on above: Order Comment: .2 Result Comment: Fast ing Glucose result from 100 to 125 mg/dL suggests IMPAIRED HOMEOSTASIS per A.D.A. criteria. Performed By: #### L 501.9520, L100.0500, L506.1000, L500.4050 #### [facility] [address] [place], [address] Potassium [Moles/Vol] 3.5 mmol/L Normal 3.5-5.1 [facility] Comment on above: Order Comment: .2 Performed By: #### L 501.9520, L100.0500, L506.1000, L500.4050 #### [facility] [address] [place], [address] Sodium [Moles/Vol] 141 mmol/L Normal 136-145 [facility] Comment on above: Order Comment: 202.2 Performed By: #### L 501.9520, L100.0500, L506.1000, L500.4050 #### [facility] [address] [place], [address] T PROT 6.6 g/dL Normal 6.4-8.2 [facility] Comment on above: Order Comment: 202.2 Performed By: #### L 501.9520, L100.0500, L506.1000, L500.4050 #### [facility] [address] [place], [address] Urea nitrogen [Mass/Vol] 28 mg/dL High 7-18 [facility] Comment on above: Order Comment: 202.2 Performed By: #### L 501.9520, L100.0500, L506.1000, L500.4050 #### [facility] [address] [place], [address] Thyroid Stim Hormone (TSH)on 03-12-2024 TSH 1.410 uIU/mL Normal 0.358-3.740 [facility] Comment on above: Order Comment: 202.2 Performed By: #### L 501.9520, L100.0500, L506.1000, L500.4050 #### [facility] [address] [place], [address] Vitamin D,25 Hydroxyon 03-12 Vitamin D 25-OH 47.3 ng/mL Normal [facility] Comment on above: Order Comment: 202.2 Result Comment: Jeniffer min D 25(OH) Status Range Deficiency <20 ng/mL (50nmol/L) Insufficiency 20 - 30 ng/mL (50 - 75 nmol/L) Sufficiency 30 - 100 ng/mL (75 - 250 nmol/L) Toxicity >100 ng/mL (>250 nmol/L) Performed By: #### L 501.9520, L100.0500, L506.1000, L500.4050 #### [facility] [address] [place], [address] CBC-Complete Blood Cnt No Di ffon 02-19-2024 Erythrocyte distribution width (RBC) [Ratio] 12.7 % Normal 11.6-14.6 [facility] Comment on above: Order Comment: 202.2 Performed By: #### L 501.9520, L100.0500, L506.1000, L500.4050 #### [facility] [address] [place], [address] Hematocrit (Bld) [Volume fraction] 40.9 % Normal 40-54 [facility] Comment on above: Order Comment: 202.2 Performed By: #### L 501.9520, L100.0500, L506.1000, L500.4050 #### [facility] [address] [place], [address] Hemoglobin (Bld) [Mass/Vol] 13.3 g/dL Normal 13.0-16.5 [facility] Comment on above: Order Comment: 202.2 Performed By: #### L 501.9520, L100.0500, L506.1000, L500.4050 #### [facility] [address] [place], [address] MCH (RBC) [Entitic mass] 32.7 pg High 27.0-32.0 [facility] Comment on above: Order Comment: 202.2 Performed By: #### L 501.9520, L100.0500, L506.1000, L500.4050 #### [facility] [address] [place], [address] MCHC (RBC) [Mass/Vol] 32.5 g/dL Normal 32-36 [facility] Comment on above: Order Comment: 202.2 Performed By: #### L [id number], L100.0500, L506.1000, L500.4050 #### [facility] [address] [place], [address] MCV (RBC) [Entitic vol] 100.5 fL High 80-94 [facility] Comment on above: Order Comment: 202.2 Performed By: #### L 501.9520, L100.0500, L506.1000, L500.4050 #### [facility] [address] [place], [address] Platelet mean volume (Bld) [Entitic vol] 9.5 fL Normal 6.2-12.0 [facility] Comment on above: Order Comment: 202.2 Performed By: #### L 501.9520, L100.0500, L506.1000, L500.4050 #### [facility] [address] [place], [address] Platelets (Bld) [#/Vol] 207 10*3/uL Normal 150-450 [facility] Comment on above: Order Comment: 202.2 Performed By: #### L 501.9520, L100.0500, L506.1000, L500.4050 #### [facility] [address] [place], [address] RBC (Bld) [#/Vol] 4.07 10*6/uL Low 4.6-6.2 [facility] Comment on above: Order Comment: 202.2 Performed By: #### L [id number], L100.0500, L506.1000, L500.4050 #### [facility] [address] [place], [address] RDW SD 47.8 fl High 35.1-43.9 [facility] Comment on above: Order Comment: 202.2 Performed By: #### L 501.9520, L100.0500, L506.1000, L500.4050 #### [facility] [address] [place], [address] WBC (Bld) [#/Vol] 6.3 10*3/uL Normal 4.4-11.0 [facility] Comment on above: Order Comment: 202.2 Performed By: #### L 501.9520, L100.0500, L506.1000, L500.4050 #### [facility] [address] [place], [address] CBC-Complete Blood Cnt No Di ffon 01-25-2024 Erythrocyte distribution width (RBC) [Ratio] 13.3 % Normal 11.6-14.6 [facility] Comment on above: Order Comment: 202.2 Performed By: #### L 501.9520, L100.0500, L506.1000, L500.4050 #### [facility] [address] [place], [address] Hematocrit (Bld) [Volume fraction] 41.6 % Normal 40-54 [facility] Comment on above: Order Comment: 202.2 Performed By: #### L 501.9520, L100.0500, L506.1000, L500.4050 #### [facility] [address] [place], [address] Hemoglobin (Bld) [Mass/Vol] 13.4 g/dL Normal 13.0-16.5 [facility] Comment on above: Order Comment: 202.2 Performed By: #### L 501.9520, L100.0500, L506.1000, L500.4050 #### [facility] [address] [place], [address] MCH (RBC) [Entitic mass] 32.6 pg High 27.0-32.0 [facility] Comment on above: Order Comment: 202.2 Performed By: #### L [id number], L100.0500, L506.1000, L500.4050 #### [facility] [address] [place], [address] MCHC (RBC) [Mass/Vol] 32.2 g/dL Normal 32-36 [facility] Comment on above: Order Comment: 202.2 Performed By: #### L 501.9520, L100.0500, L506.1000, L500.4050 #### [facility] [address] [place], [address] MCV (RBC) [Entitic vol] 101.2 fL High 80-94 [facility] Comment on above: Order Comment: 202.2 Performed By: #### L 501.9520, L100.0500, L506.1000, L500.4050 #### [facility] [address] [place], [address] Platelet mean volume (Bld) [Entitic vol] 9.9 fL Normal 6.2-12.0 [facility] Comment on above: Order Comment: 202.2 Performed By: #### L 501.9520, L100.0500, L506.1000, L500.4050 #### [facility] [address] [place], [address] Platelets (Bld) [#/Vol] 218 10*3/uL Normal 150-450 [facility] Comment on above: Order Comment: 202.2 Performed By: #### L 501.9520, L100.0500, L506.1000, L500.4050 #### [facility] [address] [place], [address] RBC (Bld) [#/Vol] 4.11 10*6/uL Low 4.6-6.2 [facility] Comment on above: Order Comment: 202.2 Performed By: #### L [id number], L100.0500, L506.1000, L500.4050 #### [facility] [address] [place], [address] RDW SD 50.1 fl High 35.1-43.9 [facility] Comment on above: Order Comment: 202.2 Performed By: #### L 501.9520, L100.0500, L506.1000, L500.4050 #### [facility] [address] [place], [address] WBC (Bld) [#/Vol] 6.1 10*3/uL Normal 4.4-11.0 [facility] Comment on above: Order Comment: 202.2 Performed By: #### L 501.9520, L100.0500, L506.1000, L500.4050 #### [facility] [address] [place], [address] Comprehensive Metabolic Prof [facility] 01-25-2024 Albumin [Mass/Vol] 3.1 g/dL Low 3.2-5.0 [facility] Comment on above: Order Comment: 202.2 Performed By: #### L 501.9520, L100.0500, L506.1000, L500.4050 #### [facility] [address] [place], [address] Albumin/Globulin [Mass ratio] 0.8 {ratio} Low 0.9-2.4 [facility] Comment on above: Order Comment: 202.2 Performed By: #### L 501.9520, L100.0500, L506.1000, L500.4050 #### [facility] [address] [place], [address] ALK P 121 U/L High 45-117 [facility] Comment on above: Order Comment: 202.2 Performed By: #### L 501.9520, L100.0500, L506.1000, L500.4050 #### [facility] [address] [place], [address] ALT [Catalytic activity/Vol] 13 U/L Low 16-61 [facility] Comment on above: Order Comment: 202.2 Performed By: #### L 501.9520, L100.0500, L506.1000, L500.4050 #### [facility] [address] [place], [address] AST [Catalytic activity/Vol] 26 U/L Normal 15-37 [facility] Comment on above: Order Comment: 202.2 Performed By: #### L 501.9520, L100.0500, L506.1000, L500.4050 #### [facility] [address] [place], [address] Bilirubin [Mass/Vol] 0.50 mg/dL Normal 0.20-1.00 [facility] Comment on above: Order Comment: 202.2 Result Comment: For patients on eltrombopag therapy, use of Dimension [place] TBIL is not recommended. Performed By: #### L 501.9520, L100.0500, L506.1000, L500.4050 #### [facility] [address] [place], [address] BUN/CRE 17.9 RATIO Normal 10-20 [facility] Comment on above: Order Comment: 202.2 Performed By: #### L 501.9520, L100.0500, L506.1000, L500.4050 #### [facility] [address] [place], [address] CA,Total 10.1 mg/dL Normal 8.5-10.1 [facility] Comment on above: Order Comment: 202.2 Performed By: #### L 501.9520, L100.0500, L506.1000, L500.4050 #### [facility] [address] [place], [address] Chloride [Moles/Vol] 104 mmol/L Normal 98-107 [facility] Comment on above: Order Comment: 202.2 Performed By: #### L 501.9520, L100.0500, L506.1000, L500.4050 #### [facility] [address] [place], [address] CO2 [Moles/Vol] 30.0 mmol/L Normal 21.0-32.0 [facility] Comment on above: Order Comment: . Performed By: #### L 501.9520, L100.0500, L506.1000, L500.4050 #### [facility] [address] [place], [address] Creatinine [Mass/Vol] 1.23 mg/dL Normal 0.70-1.30 [facility] Comment on above: Order Comment: Result Comment: The validity of the calculated GFR GFRAA in patients over 70 years has not been determined. Clinical correlation is essential. Performed By: #### L 501.9520, L100.0500, L506.1000, L500.4050 #### [facility] [address] [place], [address] EST GFR - AA 72 mL/min Normal >60 [facility] Comment on above: Order Comment: Result Comment: Afri can Austrian GFR Calc Performed By: #### L 501.9520, L100.0500, L506.1000, L500.4050 #### [facility] [address] [place], [address] GAP 5 Normal 5-15 [facility] Comment on above: Order Comment: Performed By: #### L 501.9520, L100.0500, L506.1000, L500.4050 #### [facility] [address] [place], [address] GFR/1.73 sq M.predicted among non-blacks MDRD (S/P/Bld) [Vol rate/Area] 60 mL/min/{1.73_m2} Normal >60 [facility] Comment on above: Order Comment: Result Comment: Non- GFR Calc Performed By: #### L 501.9520, L100.0500, L506.1000, L500.4050 #### [facility] [address] [place], [address] Globulin (S) [Mass/Vol] 3.8 g/dL Normal 2.2-4.2 [facility] Comment on above: Order Comment: 202.2 Performed By: #### L 501.9520, L100.0500, L506.1000, L500.4050 #### [facility] [address] [place], [address] Glucose [Mass/Vol] 96 mg/dL Normal 74-106 [facility] Comment on above: Order Comment: 202.2 Performed By: #### L 501.9520, L100.0500, L506.1000, L500.4050 #### [facility] [address] [place], [address] Potassium [Moles/Vol] 3.7 mmol/L Normal 3.5-5.1 [facility] Comment on above: Order Comment: 202.2 Performed By: #### L 501.9520, L100.0500, L506.1000, L500.4050 #### [facility] [address] [place], [address] Sodium [Moles/Vol] 139 mmol/L Normal 136-145 [facility] Comment on above: Order Comment: 202.2 Performed By: #### L 501.9520, L100.0500, L506.1000, L500.4050 #### [facility] [address] [place], [address] T PROT 6.9 g/dL Normal 6.4-8.2 [facility] Comment on above: Order Comment: 202.2 Performed By: #### L 501.9520, L100.0500, L506.1000, L500.4050 #### [facility] [address] [place], [address] Urea nitrogen [Mass/Vol] 22 mg/dL High 7-18 [facility] Comment on above: Order Comment: Performed By: #### L 501.9520, L100.0500, L506.1000, L500.4050 #### [facility] [address] [place], [address] Phenytoin (Dilantin) Levelon 01-25-2024 PHENYTOIN 8.7 mL Low 10.0-20.0 [facility] Comment on above: Order Comment: Performed By: #### L 501.9520, L100.0500, L506.1000, L500.4050 #### [facility] [address] [place], [place], [id number] KEPPRA (LEVETIRACETAM)on KEPPRA 26.7 ug/mL Normal 10.0-40.0 [facility] Comment on above: Order Comment: Result Comment: Perf ormed at: [facility] [address] [id number] Lead Software Development Engineer: Tejinder Lawrence PhD, Phone: [phone] Performed at: [facility] [address] [id number] [employer] Engineer: Amy Mckeon MD, Phone: [phone] Performed By: #### L 501.9520, L100.0500, L506.1000, L500.4050 #### [facility] [address] [place], [address] L501.7701on 12-29-2023 Phenytoin [Mass/Vol] 4.6 ug/mL Abnormal 10.0-20.0 [facility] Comment on above: Order Comment: Result Comment: Dete ction Limit = 0.8 <0.8 Indicates None Detected Performed By: #### L 501.9520, L100.0500, L506.1000, L500.4050 #### [facility] [address] [place], [address] CBC W/Diff, Automatedon 08-0 6-2023 Absolute Lymph 1.56 X10 3/uL Normal 0.83-4.51 [facility] Comment on above: Order Comment: 202.2 Performed By: #### L 501.9520, L100.0500, L506.1000, L500.4050 #### [facility] [address] [place], [address] Absolute Neut 4.7 X10 3/uL Normal 2.0-7.7 [facility] Comment on above: Order Comment: 202.2 Performed By: #### L 501.9520, L100.0500, L506.1000, L500.4050 #### [facility] [address] [place], [address] Basophils/100 WBC (Bld) 0.7 % Normal 0-1 [facility] Comment on above: Order Comment: 202.2 Performed By: #### L 501.9520, L100.0500, L506.1000, L500.4050 #### [facility] [address] [place], [address] Eosinophils/100 WBC (Bld) 3.2 % Normal 0-5 [facility] Comment on above: Order Comment: 202.2 Performed By: #### L 501.9520, L100.0500, L506.1000, L500.4050 #### [facility] [address] [place], [address] Erythrocyte distribution width (RBC) [Ratio] 12.9 % Normal 11.6-14.6 [facility] Comment on above: Order Comment: 202.2 Performed By: #### L 501.9520, L100.0500, L506.1000, L500.4050 #### [facility] [address] [place], [address] Hematocrit (Bld) [Volume fraction] 44.0 % Normal 40-54 [facility] Comment on above: Order Comment: 202.2 Performed By: #### L 501.9520, L100.0500, L506.1000, L500.4050 #### [facility] [address] [place], [address] Hemoglobin (Bld) [Mass/Vol] 14.1 g/dL Normal 13.0-16.5 [facility] Comment on above: Order Comment: 202.2 Performed By: #### L 501.9520, L100.0500, L506.1000, L500.4050 #### [facility] [address] [place], [address] IG% 0.400 Normal 0.0-0.9 [facility] Comment on above: Order Comment: 202.2 Result Comment: IG% - Immature Granulocytes (promyelocytes, myelocytes and metamyelocytes) > 1% indicates that a LEFT SHIFT is Present. Performed By: #### L 501.9520, L100.0500, L506.1000, L500.4050 #### [facility] [address] [place], [address] Lymphocytes/100 WBC (Bld) 21.4 % Normal 19-41 [facility] Comment on above: Order Comment: 202.2 Performed By: #### L 501.9520, L100.0500, L506.1000, L500.4050 #### [facility] [address] [place], [address] MCH (RBC) [Entitic mass] 32.3 pg High 27.0-32.0 [facility] Comment on above: Order Comment: 202.2 Performed By: #### L 501.9520, L100.0500, L506.1000, L500.4050 #### [facility] [address] [place], [address] MCHC (RBC) [Mass/Vol] 32.0 g/dL Normal 32-36 [facility] Comment on above: Order Comment: 202.2 Performed By: #### L 501.9520, L100.0500, L506.1000, L500.4050 #### [facility] [address] [place], [address] MCV (RBC) [Entitic vol] 100.7 fL High 80-94 [facility] Comment on above: Order Comment: 202.2 Performed By: #### L 501.9520, L100.0500, L506.1000, L500.4050 #### [facility] [address] [place], [address] Monocytes/100 WBC (Bld) 9.6 % Normal 0-10 [facility] Comment on above: Order Comment: 202.2 Performed By: #### L 501.9520, L100.0500, L506.1000, L500.4050 #### [facility] [address] [place], [address] Neutrophils/100 WBC (Bld) 64.7 % Normal 47-70 [facility] Comment on above: Order Comment: 202.2 Performed By: #### L 501.9520, L100.0500, L506.1000, L500.4050 #### [facility] [address] [place], [address] Nucleated RBC (Bld) [#/Vol] 0 10*3/uL Normal 0-5 [facility] Comment on above: Order Comment: 202.2 Performed By: #### L 501.9520, L100.0500, L506.1000, L500.4050 #### [facility] [address] [place], [address] Platelet mean volume (Bld) [Entitic vol] 9.6 fL Normal 6.2-12.0 [facility] Comment on above: Order Comment: 202.2 Performed By: #### L 501.9520, L100.0500, L506.1000, L500.4050 #### [facility] [address] [place], [address] Platelets (Bld) [#/Vol] 269 10*3/uL Normal 150-450 [facility] Comment on above: Order Comment: 202.2 Performed By: #### L 501.9520, L100.0500, L506.1000, L500.4050 #### [facility] [address] [place], [address] RBC (Bld) [#/Vol] 4.37 10*6/uL Low 4.6-6.2 [facility] Comment on above: Order Comment: 202.2 Performed By: #### L 501.9520, L100.0500, L506.1000, L500.4050 #### [facility] [address] [place], [address] RDW SD 48.0 fl High 35.1-43.9 [facility] Comment on above: Order Comment: 202.2 Performed By: #### L 501.9520, L100.0500, L506.1000, L500.4050 #### [facility] [address] [place], [address] WBC (Bld) [#/Vol] 7.3 10*3/uL Normal 4.4-11.0 [facility] Comment on above: Order Comment: 202.2 Performed By: #### L 501.9520, L100.0500, L506.1000, L500.4050 #### [facility] [address] [place], [address] Comprehensive Metabolic Prof ndon 12-25-2023 Albumin [Mass/Vol] 3.1 g/dL Low 3.2-5.0 [facility] Comment on above: Order Comment: 202.2 Performed By: #### L 501.9520, L100.0500, L506.1000, L500.4050 #### [facility] [address] [place], [address] Albumin/Globulin [Mass ratio] 0.7 {ratio} Low 0.9-2.4 [facility] Comment on above: Order Comment: 202.2 Performed By: #### L 501.9520, L100.0500, L506.1000, L500.4050 #### [facility] [address] [place], [address] ALK P 135 U/L High 45-117 [facility] Comment on above: Order Comment: 202.2 Performed By: #### L 501.9520, L100.0500, L506.1000, L500.4050 #### [facility] [address] [place], [address] ALT [Catalytic activity/Vol] 13 U/L Low 16-61 [facility] Comment on above: Order Comment: 202.2 Performed By: #### L 501.9520, L100.0500, L506.1000, L500.4050 #### [facility] [address] [place], [address] AST [Catalytic activity/Vol] 30 U/L Normal 15-37 [facility] Comment on above: Order Comment: 202.2 Performed By: #### L 501.9520, L100.0500, L506.1000, L500.4050 #### [facility] [address] [place], [address] Bilirubin [Mass/Vol] 0.30 mg/dL Normal 0.20-1.00 [facility] Comment on above: Order Comment: 202.2 Result Comment: For patients on eltrombopag therapy, use of [place] TBIL is not recommended. Performed By: #### L 501.9520, L100.0500, L506.1000, L500.4050 #### [facility] [address] [place], [address] BUN/CRE 19.5 RATIO Normal 10-20 [facility] Comment on above: Order Comment: 202.2 Performed By: #### L 501.9520, L100.0500, L506.1000, L500.4050 #### [facility] [address] [place], [address] CA,Total 9.9 mg/dL Normal 8.5-10.1 [facility] Comment on above: Order Comment: 202.2 Performed By: #### L 501.9520, L100.0500, L506.1000, L500.4050 #### [facility] [address] [place], [address] Chloride [Moles/Vol] 104 mmol/L Normal 98-107 [facility] Comment on above: Order Comment: 202.2 Performed By: #### L 501.9520, L100.0500, L506.1000, L500.4050 #### [facility] [address] [place], [address] CO2 [Moles/Vol] 31.0 mmol/L Normal 21.0-32.0 [facility] Comment on above: Order Comment: 202.2 Performed By: #### L 501.9520, L100.0500, L506.1000, L500.4050 #### [facility] [address] [place], [address] Creatinine [Mass/Vol] 1.18 mg/dL Normal 0.70-1.30 [facility] Comment on above: Order Comment: 202.2 Result Comment: The validity of the calculated GFR GFRAA in patients over 70 years has not been determined. Clinical correlation is essential. Performed By: #### L 501.9520, L100.0500, L506.1000, L500.4050 #### [facility] [address] [place], [address] EST GFR - AA 76 mL/min Normal >60 [facility] Comment on above: Order Comment: Result Comment: Afri can [place] GFR Calc Performed By: #### L 501.9520, L100.0500, L506.1000, L500.4050 #### [facility] [address] [place], [address] GAP 5 Normal 5-15 [facility] Comment on above: Order Comment: . Performed By: #### L 501.9520, L100.0500, L506.1000, L500.4050 #### [facility] [address] [place], [address] GFR/1.73 sq M.predicted among non-blacks MDRD (S/P/Bld) [Vol rate/Area] 63 mL/min/{1.73_m2} Normal >60 [facility] Comment on above: Order Comment: Result Comment: Non- GFR Calc Performed By: #### L 501.9520, L100.0500, L506.1000, L500.4050 #### [facility] [address] [place], [address] Globulin (S) [Mass/Vol] 4.2 g/dL Normal 2.2-4.2 [facility] Comment on above: Order Comment: . Performed By: #### L 501.9520, L100.0500, L506.1000, L500.4050 #### [facility] [address] [place], [address] Glucose [Mass/Vol] 108 mg/dL High 74-106 [facility] Comment on above: Order Comment: Result Comment: Fast ing Glucose result from 100 to 125 mg/dL suggests IMPAIRED HOMEOSTASIS per A.D.A. criteria. Performed By: #### L 501.9520, L100.0500, L506.1000, L500.4050 #### [facility] [address] [place], [address] Potassium [Moles/Vol] 4.1 mmol/L Normal 3.5-5.1 [facility] Comment on above: Order Comment: 202.2 Performed By: #### L 501.9520, L100.0500, L506.1000, L500.4050 #### [facility] [address] [place], [address] Sodium [Moles/Vol] 140 mmol/L Normal 136-145 [facility] Comment on above: Order Comment: 202.2 Performed By: #### L 501.9520, L100.0500, L506.1000, L500.4050 #### [facility] [address] [place], [address] T PROT 7.3 g/dL Normal 6.4-8.2 [facility] Comment on above: Order Comment: 202.2 Performed By: #### L 501.9520, L100.0500, L506.1000, L500.4050 #### [facility] [address] [place], [address] Urea nitrogen [Mass/Vol] 23 mg/dL High 7-18 [facility] Comment on above: Order Comment: 202.2 Performed By: #### L 501.9520, L100.0500, L506.1000, L500.4050 #### [facility] [address] [place], [address] Absolute lymphocyte countOrd ered By: Zak Henry on 07-10-2023 Lymphocytes Auto (Unsp spec) [#/Vol] 1.68 10*3/uL 0.83-4.51 [facility] Automated lymphocyte count a s percentage of total leukocytesOrdered By: Zak Henry on 07-10-2023 Lymphocytes/100 WBC Auto (Unsp spec) 24.7 % 19-41 [facility] Basophil percentageOrdered B y: Zak Henry on 07-10-2023 Basophils/100 WBC (Bld) 0.4 % 0-1 [facility] Bilirubin [Mass/Vol] 0.40 mg/dL 0.20-1.00 [facility] Comment on above: For patients on eltr ombopag therapy, use of [place] TBIL is not recommended. Chloride [Moles/Vol] 105 mmol/L 98-107 [facility] Eosinophils/100 WBC (Bld) 2.5 % 0-5 [facility] Glucose [Mass/Vol] 85 mg/dL 74-106 [facility] Hemoglobin (Bld) [Mass/Vol] 13.6 g/dL 13.0-16.5 [facility] Monocytes/100 WBC (Bld) 10.3 % 0-10 [facility] Neutrophils (Bld) [#/Vol] 4.2 10*3/uL 2.0-7.7 [facility] Neutrophils/100 WBC (Bld) 61.8 % 47-70 [facility] Potassium [Moles/Vol] 3.6 mmol/L 3.5-5.1 [facility] Protein [Mass/Vol] 6.7 g/dL 6.4-8.2 [facility] Sodium [Moles/Vol] 140 mmol/L 136-145 [facility] WBC (Bld) [#/Vol] 6.8 10*3/uL 4.4-11.0 [facility] Determination of erythrocyte mean corpuscular volume (MCV)Ordered By: Zak Henry on 07-10-2023 MCV (RBC) [Entitic vol] 99.8 fL 80-94 [facility] Erythrocyte distribution wid th ratioOrdered By: Zak Henry on 07-10-2023 Erythrocyte distribution width (RBC) [Ratio] 12.7 % 11.6-14.6 [facility] Erythrocyte distribution wid th standard deviationOrdered By: Zak Henry on 07-10-2023 Erythrocyte distribution width (RBC) [Entitic vol] 46.8 fL 35.1-43.9 [facility] Hematocrit Auto (Bld) [Volum e fraction]Ordered By: Zak Henry on 07-10-2023 Hematocrit (Bld) [Volume fraction] 42.2 % 40-54 [facility] Immature granulocytes/100 WB C Auto (Bld)Ordered By: Zak Henry on 07-10-2023 Immature granulocytes/100 WBC (Bld) 0.300 % 0.0-0.9 [facility] Comment on above: IG% - Immature Granu locytes (promyelocytes, myelocytes and metamyelocytes) > 1% indicates that a LEFT SHIFT is Present. Laboratory - Chemistry and C hemistry - challengeOrdered By: Zak Henry on 07-10-2023 Albumin/Globulin [Mass ratio] 0.7 {ratio} 0.9-2.4 [facility] ALP [Catalytic activity/Vol] 128 U/L 45-117 [facility] ALT [Catalytic activity/Vol] 11 U/L 16-61 [facility] CO2 [Moles/Vol] 31.0 mmol/L 21.0-32.0 [facility] Globulin (S) [Mass/Vol] 3.9 g/dL 2.2-4.2 [facility] Urea nitrogen/Creatinine [Mass ratio] 16.2 mg/mg 10-20 [facility] - Hematology and Cell countsOrdered By: Zak Henry on 07-10-2023 MCH (RBC) [Entitic mass] 32.2 pg 27.0-32.0 [facility] MCHC (RBC) [Mass/Vol] 32.2 g/dL 32-36 [facility] Nucleated RBC/100 WBC (Bld) [Ratio] 0 % 0-5 [facility] Platelet mean volume (Bld) [Entitic vol] 10.1 fL 6.2-12.0 [facility] Platelets (Bld) [#/Vol] 196 10*3/uL 150-450 [facility] No Panel InformationOrdered By: Zak Henry on 07-10-2023 Estimated GFR (MDRD) Amer 93 mL/min >60 [facility] Comment on above: GFR Calc Estimated GFR (MDRD) Non-Af Amer 77 mL/min >60 [facility] Comment on above: Non- GFR Calc Levetiracetam (Keppra) Level 35.4 ug/mL 10.0-40.0 [facility] Comment on above: Performed at: [facility] [id number] [place], [place] [id number] Director: Amy Mckeon MD, Phone: [phone] RBC Auto (Bld) [#/Vol]Ordere d By: Zak Henry on 07-10-2023 RBC (Bld) [#/Vol] 4.23 10*6/uL 4.6-6.2 [facility] Serum or plasma calcium angel urement (mass/volume)Ordered By: Zak Henry on 07-10-2023 Calcium [Mass/Vol] 10.1 mg/dL 8.5-10.1 [facility] Serum or plasma creatinine m easurement (mass/volume)Ordered By: Zak Henry on 07-10-2023 Creatinine [Mass/Vol] 0.98 mg/dL 0.70-1.30 [facility] Comment on above: The validity of the calculated GFR & GFRAA in patients over 70 years has not been determined. Clinical correlation is essential. Serum or plasma phenytoin me asurement (mass/volume)Ordered By: Zak Henry on 07-10-2023 Phenytoin [Mass/Vol] 8.8 mL 10.0-20.0 [facility] Serum or plasma urea nitroge n measurement (mass/volume)Ordered By: Zak Henry on 07-10-2023 Urea nitrogen [Mass/Vol] 16 mg/dL 7-18 [facility] Thin prep Papanicolaou smear with manual screeningOrdered By: Zak Henry on 07-10-2023 Thin prep Papanicolaou smear with manual screening 2.8 g/dL 3.2-5.0 [facility] Thin prep Papanicolaou smear with manual screening 26 U/L 15-37 [facility] Thin prep Papanicolaou smear with manual screening 4 5-15 [facility] Basophil percentageOrdered B y: Zak Henry on 05-09-2023 Basophil percentage 5-10 [facility] Test strip Ql (U)O rdered By: Zak Henry on 05-09-2023 Bilirubin Ql (U) Negative Negative [facility] Culture, urineOrdered By: Venkata Henry on 05-09-2023 Bacteria identified Cx Nom (U) Klebsiella oxytoca [facility] Ketones Test strip Ql (U)Ord ered By: Zak Henry on 05-09-2023 Ketones Ql (U) Negative Negative [facility] Mucus LM Ql (Urine sed)Order ed By: Zak Henry on 05-09-2023 Mucus Ql (Urine sed) 0 SEEN /hpf [facility] Nitrite Test strip Ql (U)Ord ered By: Zak Henry on 05-09-2023 Nitrite Ql (U) Positive Negative [facility] Protein Test strip Ql (U)Ord ered By: Zak Henry on 05-09-2023 Protein Ql (U) Negative Negative [facility] Squamous epithelial cells de tection in urine sediment by light microscopyOrdered By: Zak Henry on 05-09-2023 Epithelial cells.squamous LM Ql (Urine sed) 0-5 SEEN /hpf 0-5 [facility] Urine blood detectionOrdered By: Zak Henry on 05-09-2023 RBC Ql (U) Negative Negative [facility] RBC Ql (U) 0 SEEN /hpf 0-5 [facility] Urine clarityOrdered By: Prince Henry on 05-09-2023 Clarity (U) Clear Clear [facility] Urine color determinationOrd ered By: Zak Henry on 05-09-2023 Color (U) Yellow Yellow [facility] Urine glucose detectionOrder ed By: Zak Henry on 05-09-2023 Glucose Ql (U) Normal mg/dl Normal [facility] Urine leukocyte esterase det ection by dipstickOrdered By: Zak Henry on 05-09-2023 Leukocyte esterase Test strip Ql (U) 100 /ul Negative [facility] Urine pHOrdered By: Zak Henry on 05-09-2023 pH (U) 6.0 [pH] 5.0 - 8.0 [facility] Urine sediment bacteria coun t by microscopy (number/high power field)Ordered By: Zak Henry on 05-09-2023 Bacteria LM.HPF (Urine sed) [#/Area] 1 /[HPF] None Seen [facility] Urine specific gravity measu rementOrdered By: Zak Henry on 05-09-2023 Specific gravity (U) [Rel density] 1.010 1.002-1.030 [facility] Urobilinogen Auto test strip Ql (U)Ordered By: Zak Henry on 05-09-2023 Urobilinogen Ql (U) Normal mg/dl Normal [facility] Basophil percentageOrdered B y: Zak Henry on 03-20-2023 Bilirubin [Mass/Vol] 0.40 mg/dL 0.20-1.00 [facility] Comment on above: For patients on eltr ombopag therapy, use of [place] TBIL is not recommended. Chloride [Moles/Vol] 103 mmol/L 98-107 [facility] Glucose [Mass/Vol] 96 mg/dL 74-106 [facility] Potassium [Moles/Vol] 4.1 mmol/L 3.5-5.1 [facility] Protein [Mass/Vol] 6.8 g/dL 6.4-8.2 [facility] Sodium [Moles/Vol] 140 mmol/L 136-145 [facility] WBC (Bld) [#/Vol] 6.1 10*3/uL 4.4-11.0 [facility] Blood erythrocytes count (nu mber/volume)Ordered By: Zak Henry on 03-20-2023 RBC (Bld) [#/Vol] 4.33 10*6/uL 4.6-6.2 [facility] Blood hemoglobin measurement (mass/volume)Ordered By: Zak Henry on 03-20-2023 Hemoglobin (Bld) [Mass/Vol] 14.2 g/dL 13.0-16.5 [facility] Blood platelet mean volumeOr dered By: Zak Henry on 03-20-2023 Platelet mean volume (Bld) [Entitic vol] 10.2 fL 6.2-12.0 [facility] Culture, urineOrdered By: Venkata Henry on 03-20-2023 Bacteria identified Cx Nom (U) Klebsiella oxytoca [facility] Determination of erythrocyte mean corpuscular volume (MCV)Ordered By: Zak Henry on 03-20-2023 MCV (RBC) [Entitic vol] 101.2 fL 80-94 [facility] Hematocrit Auto (Bld) [Volum e fraction]Ordered By: Zak Henry on 03-20-2023 Hematocrit (Bld) [Volume fraction] 43.8 % 40-54 [facility] Laboratory - Chemistry and C hemistry - challengeOrdered By: Zak Henry on 03-20-2023 ALP [Catalytic activity/Vol] 124 U/L 45-117 [facility] ALT [Catalytic activity/Vol] 11 U/L 16-61 [facility] CO2 [Moles/Vol] 34.0 mmol/L 21.0-32.0 [facility] Globulin (S) [Mass/Vol] 3.7 g/dL 2.2-4.2 [facility] Urea nitrogen/Creatinine [Mass ratio] 19.8 mg/mg 10-20 [facility] Laboratory - Hematology and Cell countsOrdered By: Zak Henry on 03-20-2023 Erythrocyte distribution width (RBC) [Entitic vol] 47.8 fL 35.1-43.9 [facility] Erythrocyte distribution width (RBC) [Ratio] 12.8 % 11.6-14.6 [facility] MCH (RBC) [Entitic mass] 32.8 pg 27.0-32.0 [facility] MCHC Auto (RBC) [Mass/Vol]Or dered By: Zak Henry on 03-20-2023 MCHC (RBC) [Mass/Vol] 32.4 g/dL 32-36 [facility] No Panel InformationOrdered By: Zak Henry on 03-20-2023 Estimated GFR (MDRD) Amer 77 mL/min >60 [facility] Comment on above: GFR Calc Estimated GFR (MDRD) Non-Af Amer 64 mL/min >60 [facility] Comment on above: Non- GFR Calc Platelets bldOrdered By: Prince Henry on 03-20-2023 Platelets (Bld) [#/Vol] 196 10*3/uL 150-450 [facility] Serum or plasma albumin angel urement (mass/volume)Ordered By: Zak Henry on 03-20-2023 Albumin [Mass/Vol] 3.1 g/dL 3.2-5.0 [facility] Serum or plasma albumin/glob ulin mass ratioOrdered By: Zak Henry on 03-20-2023 Albumin/Globulin [Mass ratio] 0.8 {ratio} 0.9-2.4 [facility] Serum or plasma calcium angel urement (mass/volume)Ordered By: Zak Henry on 03-20-2023 Calcium [Mass/Vol] 9.8 mg/dL 8.5-10.1 [facility] Serum or plasma creatinine m easurement (mass/volume)Ordered By: Zak Henry on 03-20-2023 Creatinine [Mass/Vol] 1.16 mg/dL 0.70-1.30 [facility] Comment on above: The validity of the calculated GFR & GFRAA in patients over 70 years has not been determined. Clinical correlation is essential. Serum or plasma urea nitroge n measurement (mass/volume)Ordered By: Zak Henry on 03-20-2023 Urea nitrogen [Mass/Vol] 23 mg/dL 7-18 [facility] Thin prep Papanicolaou smear with manual screeningOrdered By: Zak Henry on 03-20-2023 Thin prep Papanicolaou smear with manual screening 24 U/L 15-37 [facility] Thin prep Papanicolaou smear with manual screening 3 5-15 [facility] Basophil percentageOrdered B y: Zak Henry on 03-19-2023 Basophil percentage >100 SEEN /hpf 0-5 [facility] Bilirubin Test strip Ql (U)O rdered By: Zak Henry on 03-19-2023 Bilirubin Ql (U) Negative Negative [facility] Ketones Test strip Ql (U)Ord ered By: Zak Henry on 03-19-2023 Ketones Ql (U) Negative Negative [facility] Mucus LM Ql (Urine sed)Order ed By: Zak Henry on 03-19-2023 Mucus Ql (Urine sed) 0 SEEN /hpf [facility] Nitrite Test strip Ql (U)Ord ered By: Zak Henry on 03-19-2023 Nitrite Ql (U) Positive Negative [facility] Protein Test strip Ql (U)Ord ered By: Zak Henry on 03-19-2023 Protein Ql (U) 30 mg/dl Negative [facility] Squamous epithelial cells de tection in urine sediment by light microscopyOrdered By: Zak Henry on 03-19-2023 Epithelial cells.squamous LM Ql (Urine sed) 0 SEEN /hpf 0-5 [facility] Urine blood detectionOrdered By: Zak Henry on 03-19-2023 RBC Ql (U) 50 /ul Negative [facility] RBC Ql (U) 0 SEEN /hpf 0-5 [facility] Urine clarityOrdered By: Prince Henry on 03-19-2023 Clarity (U) Cloudy Clear [facility] Urine color determinationOrd ered By: Zak Henry on 03-19-2023 Color (U) Yellow Yellow [facility] Urine glucose detectionOrder ed By: Zak Henry on 03-19-2023 Glucose Ql (U) Normal mg/dl Normal [facility] Urine leukocyte esterase det ection by dipstickOrdered By: Zak Henry on 03-19-2023 Leukocyte esterase Test strip Ql (U) 500 /ul Negative [facility] Urine pHOrdered By: Zak Henry on 03-19-2023 pH (U) 6.0 [pH] 5.0 - 8.0 [facility] Urine sediment bacteria coun t by microscopy (number/high power field)Ordered By: Zka Henry on 03-19-2023 Bacteria LM.HPF (Urine sed) [#/Area] 0 /[HPF] None Seen [facility] Urine specific gravity measu rementOrdered By: Zak Henry on 03-19-2023 Specific gravity (U) [Rel density] 1.015 1.002-1.030 [facility] Urobilinogen Auto test strip Ql (U)Ordered By: Zak Henry on 03-19-2023 Urobilinogen Ql (U) Normal mg/dl Normal [facility] Absolute lymphocyte countOrd ered By: Zak Henry on 01-23-2023 Lymphocytes Auto (Unsp spec) [#/Vol] 1.87 10*3/uL 0.83-4.51 [facility] Basophil percentageOrdered B y: Zak Henry on 01-23-2023 Basophils/100 WBC (Bld) 0.5 % 0-1 [facility] Bilirubin [Mass/Vol] 0.30 mg/dL 0.20-1.00 [facility] Comment on above: For patients on eltr ombopag therapy, use of [place] TBIL is not recommended. Chloride [Moles/Vol] 106 mmol/L 98-107 [facility] Eosinophils/100 WBC (Bld) 3.3 % 0-5 [facility] Glucose [Mass/Vol] 103 mg/dL 74-106 [facility] Comment on above: Fasting Glucose resu lt from 100 to 125 mg/dL suggests IMPAIRED HOMEOSTASIS per A.D.A. criteria. Neutrophils (Bld) [#/Vol] 3.2 10*3/uL 2.0-7.7 [facility] Neutrophils/100 WBC (Bld) 53.1 % 47-70 [facility] Potassium [Moles/Vol] 3.8 mmol/L 3.5-5.1 [facility] Protein [Mass/Vol] 7.1 g/dL 6.4-8.2 [facility] Sodium [Moles/Vol] 141 mmol/L 136-145 [facility] WBC (Bld) [#/Vol] 6.0 10*3/uL 4.4-11.0 [facility] Blood erythrocytes count (nu mber/volume)Ordered By: Zak Henry on 01-23-2023 RBC (Bld) [#/Vol] 4.39 10*6/uL 4.6-6.2 [facility] Blood hemoglobin measurement (mass/volume)Ordered By: Zak Henry on 01-23-2023 Hemoglobin (Bld) [Mass/Vol] 14.4 g/dL 13.0-16.5 [facility] Blood lymphocytes/100 leukoc ytesOrdered By: Zak Henry on 01-23-2023 Lymphocytes/100 WBC (Bld) 31.0 % 19-41 [facility] Blood monocytes/100 leukocyt esOrdered By: Zak Henry on 01-23-2023 Monocytes/100 WBC (Bld) 11.8 % 0-10 [facility] Blood platelet mean volumeOr dered By: Zak Henry on 01-23-2023 Platelet mean volume (Bld) [Entitic vol] 10.3 fL 6.2-12.0 [facility] Determination of erythrocyte mean corpuscular volume (MCV)Ordered By: Zak Henry on 01-23-2023 MCV (RBC) [Entitic vol] 103.0 fL 80-94 [facility] Hematocrit Auto (Bld) [Volum e fraction]Ordered By: Zak Henry on 01-23-2023 Hematocrit (Bld) [Volume fraction] 45.2 % 40-54 [facility] Laboratory - Chemistry and C hemistry - challengeOrdered By: Zak Henry on 01-23-2023 ALP [Catalytic activity/Vol] 131 U/L 45-117 [facility] ALT [Catalytic activity/Vol] 12 U/L 16-61 [facility] CO2 [Moles/Vol] 30.0 mmol/L 21.0-32.0 [facility] Globulin (S) [Mass/Vol] 3.9 g/dL 2.2-4.2 [facility] Urea nitrogen/Creatinine [Mass ratio] 19.2 mg/mg 10-20 [facility] - Hematology and Cell countsOrdered By: Zak Henry on 01-23-2023 Erythrocyte distribution width (RBC) [Entitic vol] 51.1 fL 35.1-43.9 [facility] Erythrocyte distribution width (RBC) [Ratio] 13.2 % 11.6-14.6 [facility] Immature granulocytes/100 WBC (Bld) 0.300 % 0.0-0.9 [facility] Comment on above: IG% - Immature Granu locytes (promyelocytes, myelocytes and metamyelocytes) > 1% indicates that a LEFT SHIFT is Present. MCH (RBC) [Entitic mass] 32.8 pg 27.0-32.0 [facility] Nucleated RBC/100 WBC (Bld) [Ratio] 0 % 0-5 [facility] MCHC Auto (RBC) [Mass/Vol]Or dered By: Zak Henry on 01-23-2023 MCHC (RBC) [Mass/Vol] 31.9 g/dL 32-36 [facility] No Panel InformationOrdered By: Zak Henry on 01-23-2023 Estimated GFR (MDRD) Amer 74 mL/min >60 [facility] Comment on above: GFR Calc Estimated GFR (MDRD) Non-Af Amer 62 mL/min >60 [facility] Comment on above: Non- GFR Calc Levetiracetam (Keppra) Level 31.2 ug/mL 10.0-40.0 [facility] Comment on above: Performed at: [address] [id number] Director: Amy Mckeon MD, Phone: [phone] Platelets bldOrdered By: Prince Henry on 01-23-2023 Platelets (Bld) [#/Vol] 205 10*3/uL 150-450 [facility] Serum or plasma albumin angel urement (mass/volume)Ordered By: Zak Henry on 01-23-2023 Albumin [Mass/Vol] 3.2 g/dL 3.2-5.0 [facility] Serum or plasma albumin/glob ulin mass ratioOrdered By: Zak Henry on 01-23-2023 Albumin/Globulin [Mass ratio] 0.8 {ratio} 0.9-2.4 [facility] Serum or plasma calcium angel urement (mass/volume)Ordered By: Zak Henry on 01-23-2023 Calcium [Mass/Vol] 10.0 mg/dL 8.5-10.1 [facility] Serum or plasma creatinine m easurement (mass/volume)Ordered By: Zak Henry on 01-23-2023 Creatinine [Mass/Vol] 1.20 mg/dL 0.70-1.30 [facility] Comment on above: The validity of the calculated GFR & GFRAA in patients over 70 years has not been determined. Clinical correlation is essential. Serum or plasma phenytoin me asurement (mass/volume)Ordered By: Zak Henry on 01-23-2023 Phenytoin [Mass/Vol] 8.1 mL 10.0-20.0 [facility] Serum or plasma urea nitroge n measurement (mass/volume)Ordered By: Zak Henry on 01-23-2023 Urea nitrogen [Mass/Vol] 23 mg/dL 7-18 [facility] Thin prep Papanicolaou smear with manual screeningOrdered By: Zak Henry on 01-23-2023 Thin prep Papanicolaou smear with manual screening 23 U/L 15-37 [facility] Thin prep Papanicolaou smear with manual screening 5 5-15 [facility] Basophil percentageOrdered B y: Zak Henry on 10-02-2022 Cholesterol [Mass/Vol] 129 mg/dL <200 [facility] Comment on above: <200 mg/dL Desirable 200-240 mg/dL Borderline >240 mg/dL High Risk Triglyceride [Mass/Vol] 121 mg/dL <199 [facility] Comment on above: The drugs N-Acetylcy steine and Metamizole may falsely depress this assay.Serum Triglycerides Reference Interval Normal <150 mg/dL Borderline high 150 - 199 mg/dL High 200 - 499 mg/dL Very High > or = 500 mg/dL No Panel InformationOrdered By: Zak Henry on 10-02-2022 Vitamin D 25-Hydroxy 50.8 ng/mL [facility] Comment on above: Vitamin D 25(OH) Sta tus Range Deficiency <20 ng/mL (50nmol/L) Insufficiency 20 - 30 ng/mL (50 - 75 nmol/L) Sufficiency 30 - 100 ng/mL (75 - 250 nmol/L) Toxicity >100 ng/mL (>250 nmol/L) Serum or plasma cholesterol in HDL measurement (mass/volume)Ordered By: Zak Henry on 10-02-2022 Cholesterol in HDL [Mass/Vol] 62 mg/dL >40 [facility] Comment on above: The drugs N-Acetylcy steine and Metamizole may falsely depress this assay. Reference Range HDL <40 mg/dL Low HDL Cholesterol HDL >or= 60 mg/dL High HDL Cholesterol Serum or plasma cholesterol in VLDL measurement (mass/volume)Ordered By: Zak Henry on 10-02-2022 Cholesterol in VLDL [Mass/Vol] 24 mg/dL 5-40 [facility] Serum or plasma low density lipoprotein (LDL) cholesterol measurement (mass/volume)Ordered By: Zak Henry on 10-02-2022 Cholesterol in LDL [Mass/Vol] 43 mg/dL 0-130 [facility] Absolute lymphocyte countOrd ered By: Tran Bruce on 08-07-2022 Lymphocytes Auto (Unsp spec) [#/Vol] 1.76 10*3/uL 0.83-4.51 [facility] Basophil percentageOrdered B y: Tran Bruce on 08-07-2022 Basophils/100 WBC (Bld) 0.6 % 0-1 [facility] Bilirubin [Mass/Vol] 0.40 mg/dL 0.20-1.00 [facility] Comment on above: For patients on eltr ombopag therapy, use of [place] TBIL is not recommended. Chloride [Moles/Vol] 103 mmol/L 98-107 [facility] Eosinophils/100 WBC (Bld) 2.6 % 0-5 [facility] Glucose [Mass/Vol] 93 mg/dL 74-106 [facility] Neutrophils (Bld) [#/Vol] 3.6 10*3/uL 2.0-7.7 [facility] Neutrophils/100 WBC (Bld) 57.6 % 47-70 [facility] Potassium [Moles/Vol] 3.8 mmol/L 3.5-5.1 [facility] Protein [Mass/Vol] 7.2 g/dL 6.4-8.2 [facility] Sodium [Moles/Vol] 140 mmol/L 136-145 [facility] WBC (Bld) [#/Vol] 6.2 10*3/uL 4.4-11.0 [facility] Blood erythrocytes count (nu mber/volume)Ordered By: Tran Bruce on 08-07-2022 RBC (Bld) [#/Vol] 4.57 10*6/uL 4.6-6.2 [facility] Blood hemoglobin measurement (mass/volume)Ordered By: Tran Bruce on 08-07-2022 Hemoglobin (Bld) [Mass/Vol] 15.0 g/dL 13.0-16.5 [facility] Blood lymphocytes/100 leukoc ytesOrdered By: Tran Bruce on 08-07-2022 Lymphocytes/100 WBC (Bld) 28.5 % 19-41 [facility] Blood monocytes/100 leukocyt esOrdered By: Tran Bruce on 08-07-2022 Monocytes/100 WBC (Bld) 10.5 % 0-10 [facility] Blood platelet mean volumeOr dered By: Tran Bruce on 08-07-2022 Platelet mean volume (Bld) [Entitic vol] 9.5 fL 6.2-12.0 [facility] Determination of erythrocyte mean corpuscular volume (MCV)Ordered By: Tran Bruce on 08-07-2022 MCV (RBC) [Entitic vol] 100.0 fL 80-94 [facility] Hematocrit Auto (Bld) [Volum e fraction]Ordered By: Tran Bruce on 08-07-2022 Hematocrit (Bld) [Volume fraction] 45.7 % 40-54 [facility] Laboratory - Chemistry and C hemistry - challengeOrdered By: Tran Bruce on 08-07-2022 ALP [Catalytic activity/Vol] 127 U/L 45-117 [facility] ALT [Catalytic activity/Vol] 11 U/L 16-61 [facility] CO2 [Moles/Vol] 30.0 mmol/L 21.0-32.0 [facility] Globulin (S) [Mass/Vol] 3.9 g/dL 2.2-4.2 [facility] Urea nitrogen/Creatinine [Mass ratio] 19.3 mg/mg 10-20 [facility] Laboratory - Hematology and Cell countsOrdered By: Tran Bruce on 08-07-2022 Erythrocyte distribution width (RBC) [Entitic vol] 45.6 fL 35.1-43.9 [facility] Erythrocyte distribution width (RBC) [Ratio] 12.4 % 11.6-14.6 [facility] Immature granulocytes/100 WBC (Bld) 0.200 % 0.0-0.9 [facility] Comment on above: IG% - Immature Granu locytes (promyelocytes, myelocytes and metamyelocytes) > 1% indicates that a LEFT SHIFT is Present. MCH (RBC) [Entitic mass] 32.8 pg 27.0-32.0 [facility] Nucleated RBC/100 WBC (Bld) [Ratio] 0 % 0-5 [facility] MCHC Auto (RBC) [Mass/Vol]Or dered By: Tran Bruce on 08-07-2022 MCHC (RBC) [Mass/Vol] 32.8 g/dL 32-36 [facility] No Panel InformationOrdered By: Tran Bruce on 08-07-2022 Estimated GFR (MDRD) Amer 79 mL/min >60 [facility] Comment on above: GFR Calc Estimated GFR (MDRD) Non-Af Amer 65 mL/min >60 [facility] Comment on above: Non- GFR Calc Levetiracetam (Keppra) Level 30.6 ug/mL 10.0-40.0 [facility] Comment on above: Performed at: [facility] [address] [id number] Director: Amy Mckeon MD, Phone: [phone] Platelets bldOrdered By: Joanna Bruce on 08-07-2022 Platelets (Bld) [#/Vol] 227 10*3/uL 150-450 [facility] Serum or plasma albumin angel urement (mass/volume)Ordered By: Tran Bruce on 08-07-2022 Albumin [Mass/Vol] 3.3 g/dL 3.2-5.0 [facility] Serum or plasma albumin/glob ulin mass ratioOrdered By: Tran Bruce on 08-07-2022 Albumin/Globulin [Mass ratio] 0.8 {ratio} 0.9-2.4 [facility] Serum or plasma calcium angel urement (mass/volume)Ordered By: Tran Bruce on 08-07-2022 Calcium [Mass/Vol] 10.0 mg/dL 8.5-10.1 [facility] Serum or plasma creatinine m easurement (mass/volume)Ordered By: Tran Bruce on 08-07-2022 Creatinine [Mass/Vol] 1.14 mg/dL 0.70-1.30 [facility] Comment on above: The validity of the calculated GFR & GFRAA in patients over 70 years has not been determined. Clinical correlation is essential. Serum or plasma phenytoin me asurement (mass/volume)Ordered By: Tran Bruce on 08-07-2022 Phenytoin [Mass/Vol] 9.0 mL 10.0-20.0 [facility] Serum or plasma urea nitroge n measurement (mass/volume)Ordered By: Tran Bruce on 08-07-2022 Urea nitrogen [Mass/Vol] 22 mg/dL 7-18 [facility] Thin prep Papanicolaou smear with manual screeningOrdered By: Tran Bruce on 08-07-2022 Thin prep Papanicolaou smear with manual screening 25 U/L 15-37 [facility] Thin prep Papanicolaou smear with manual screening 7 5-15 [facility] Bilirubin Test strip Ql (U)o n 03-07-2022 Bilirubin Ql (U) Negative Negative [facility] Work Phone: Ketones Test strip Ql (U)on 03-07-2022 Ketones Ql (U) Negative Negative [facility] Work Phone: Nitrite Test strip Ql (U)on 03-07-2022 Nitrite Ql (U) Positive Negative [facility] Work Phone: Protein Test strip Ql (U)on 03-07-2022 Protein Ql (U) 15 mg/dl Negative [facility] Work Phone: Urine blood detectionon 02-18 RBC Ql (U) 25 /ul Negative [facility] Work Phone: Urine clarityon 03-07-2022 Clarity (U) Sl. Cloudy Clear [facility] Work Phone: Urine color determinationon 03-07-2022 Color (U) Yellow Yellow [facility] Work Phone: Urine glucose detectionon Glucose Ql (U) Normal mg/dl Normal [facility] Work Phone: Urine leukocyte esterase det ection by dipstickon 03-07-2022 Leukocyte esterase Test strip Ql (U) 500 /ul Negative [facility] Work Phone: Urine pHon 03-07-2022 pH (U) 7.0 [pH] 5.0 - 8.0 [facility] Work Phone: Urine specific gravity measu rementon 03-07-2022 Specific gravity (U) [Rel density] 1.010 1.002-1.030 [facility] Work Phone: Urobilinogen Auto test strip Ql (U)on 03-07-2022 Urobilinogen Ql (U) Normal mg/dl Normal [facility] Work Phone: Absolute lymphocyte counton 02-20-2022 Lymphocytes Auto (Unsp spec) [#/Vol] 1.61 10*3/uL 0.83-4.51 [facility] Work Phone: Basophil percentageon 2021 Basophils/100 WBC (Bld) 0.6 % 0-1 [facility] Work Phone: Bilirubin [Mass/Vol] 0.30 mg/dL 0.20-1.00 [facility] Work Phone: Comment on above: For patients on eltr ombopag therapy, use of [place] TBIL is not recommended. Chloride [Moles/Vol] 99 mmol/L 98-107 [facility] Work Phone: Eosinophils/100 WBC (Bld) 3.6 % 0-5 [facility] Work Phone: Glucose [Mass/Vol] 91 mg/dL 74-106 [facility] Work Phone: Neutrophils (Bld) [#/Vol] 3.7 10*3/uL 2.0-7.7 [facility] Work Phone: Neutrophils/100 WBC (Bld) 57.8 % 47-70 [facility] Work Phone: Potassium [Moles/Vol] 3.7 mmol/L 3.5-5.1 [facility] Work Phone: Protein [Mass/Vol] 7.0 g/dL 6.4-8.2 [facility] Work Phone: Sodium [Moles/Vol] 136 mmol/L 136-145 [facility] Work Phone: WBC (Bld) [#/Vol] 6.4 10*3/uL 4.4-11.0 [facility] Work Phone: [phone] Blood erythrocytes count (nu mber/volume)on 02-20-2022 RBC (Bld) [#/Vol] 4.19 10*6/uL 4.6-6.2 [facility] Work Phone: Blood hemoglobin measurement (mass/volume)on 02-20-2022 Hemoglobin (Bld) [Mass/Vol] 13.9 g/dL 13.0-16.5 [facility] Work Phone: Blood lymphocytes/100 leukoc yteson 02-20-2022 Lymphocytes/100 WBC (Bld) 25.4 % 19-41 [facility] Work Phone: Blood monocytes/100 leukocyt eson 02-20-2022 Monocytes/100 WBC (Bld) 12.1 % 0-10 [facility] Work Phone: Blood platelet mean volumeon 02-20-2022 Platelet mean volume (Bld) [Entitic vol] 10.0 fL 6.2-12.0 [facility] Work Phone: Determination of erythrocyte mean corpuscular volume (MCV)on 02-20-2022 MCV (RBC) [Entitic vol] 99.0 fL 80-94 [facility] Work Phone: Hematocrit Auto (Bld) [Volum e fraction]on 02-20-2022 Hematocrit (Bld) [Volume fraction] 41.5 % 40-54 [facility] Work Phone: Laboratory - Chemistry and C hemistry - challengeon 02-20-2022 ALP [Catalytic activity/Vol] 133 U/L 45-117 [facility] Work Phone: ALT [Catalytic activity/Vol] 12 U/L 16-61 [facility] Work Phone: CO2 [Moles/Vol] 29.0 mmol/L 21.0-32.0 [facility] Work Phone: Globulin (S) [Mass/Vol] 4.0 g/dL 2.2-4.2 [facility] Work Phone: Urea nitrogen/Creatinine [Mass ratio] 17.9 mg/mg 10-20 [facility] Work Phone: Laboratory - Hematology and Cell countson 02-20-2022 Erythrocyte distribution width (RBC) [Entitic vol] 45.1 fL 35.1-43.9 [facility] Work Phone: Erythrocyte distribution width (RBC) [Ratio] 12.5 % 11.6-14.6 [facility] Work Phone: Immature granulocytes/100 WBC (Bld) 0.500 % 0.0-0.9 [facility] Work Phone: Comment on above: IG% - Immature Granu locytes (promyelocytes, myelocytes and metamyelocytes) > 1% indicates that a LEFT SHIFT is Present. MCH (RBC) [Entitic mass] 33.2 pg 27.0-32.0 [facility] Work Phone: Nucleated RBC/100 WBC (Bld) [Ratio] 0 % 0-5 [facility] Work Phone: MCHC Auto (RBC) [Mass/Vol]on 02-20-2022 MCHC (RBC) [Mass/Vol] 33.5 g/dL 32-36 [facility] Work Phone: No Panel Informationon 02-20 Estimated GFR (MDRD) Amer 81 mL/min >60 [facility] Work Phone: Comment on above: GFR Calc Estimated GFR (MDRD) Non-Af Amer 67 mL/min >60 [facility] Work Phone: Comment on above: Non- GFR Calc Levetiracetam (Keppra) Level 31.4 ug/mL 10.0-40.0 [facility] Work Phone: Comment on above: Performed at: - L [address] [id number] Director: Amy Mckeon MD, Phone: [phone] Platelets bldon 02-20-2022 Platelets (Bld) [#/Vol] 199 10*3/uL 150-450 [facility] Work Phone: Serum or plasma albumin angel urement (mass/volume)on 02-20-2022 Albumin [Mass/Vol] 3.0 g/dL 3.2-5.0 [facility] Work Phone: Serum or plasma albumin/glob ulin mass ratioon 02-20-2022 Albumin/Globulin [Mass ratio] 0.8 {ratio} 0.9-2.4 [facility] Work Phone: Serum or plasma calcium angel urement (mass/volume)on 02-20-2022 Calcium [Mass/Vol] 10.1 mg/dL 8.5-10.1 [facility] Work Phone: Serum or plasma creatinine m easurement (mass/volume)on 02-20-2022 Creatinine [Mass/Vol] 1.12 mg/dL 0.70-1.30 [facility] Work Phone: Comment on above: The validity of the calculated GFR & GFRAA in patients over 70 years has not been determined. Clinical correlation is essential. Serum or plasma phenytoin me asurement (mass/volume)on 02-20-2022 Phenytoin [Mass/Vol] 8.5 mL 10.0-20.0 [facility] Work Phone: Serum or plasma urea nitroge n measurement (mass/volume)on 02-20-2022 Urea nitrogen [Mass/Vol] 20 mg/dL 7-18 [facility] Work Phone: Thin prep Papanicolaou smear with manual screeningon 02-20-2022 Thin prep Papanicolaou smear with manual screening 33 U/L 15-37 [facility] Work Phone: Thin prep Papanicolaou smear with manual screening 8 5-15 [facility] Work Phone: Basophil percentageon 2021 Cholesterol [Mass/Vol] 138 mg/dL <200 [facility] Work Phone: Comment on above: <200 mg/dL Desirable 200-240 mg/dL Borderline >240 mg/dL High Risk Triglyceride [Mass/Vol] 112 mg/dL [facility] Work Phone: Comment on above: The drugs N-Acetylcy steine and Metamizole may falsely depress this assay.Serum Triglycerides Reference Interval Normal <150 mg/dL Borderline high 150 - 199 mg/dL High 200 - 499 mg/dL Very High > or = 500 mg/dL No Panel Informationon 10-03 Vitamin D 25-Hydroxy 44.0 ng/mL [facility] Work Phone: Comment on above: Vitamin D 25(OH) Sta tus Range Deficiency <20 ng/mL (50nmol/L) Insufficiency 20 - 30 ng/mL (50 - 75 nmol/L) Sufficiency 30 - 100 ng/mL (75 - 250 nmol/L) Toxicity >100 ng/mL (>250 nmol/L) Serum or plasma cholesterol in HDL measurement (mass/volume)on 10-03-2021 Cholesterol in HDL [Mass/Vol] 72 mg/dL [facility] Work Phone: Comment on above: The drugs N-Acetylcy steine and Metamizole may falsely depress this assay. Reference Range HDL <40 mg/dL Low HDL Cholesterol HDL >or= 60 mg/dL High HDL Cholesterol Serum or plasma cholesterol in VLDL measurement (mass/volume)on 10-03-2021 Cholesterol in VLDL [Mass/Vol] 22 mg/dL 5-40 [facility] Work Phone: Serum or plasma low density lipoprotein (LDL) cholesterol measurement (mass/volume)on 10-03-2021 Cholesterol in LDL [Mass/Vol] 44 mg/dL 0-130 [facility] Work Phone: Absolute lymphocyte counton 09-05-2021 Lymphocytes Auto (Unsp spec) [#/Vol] 1.02 10*3/uL 0.83-4.51 [facility] Work Phone: Basophil percentageon 2021 Basophils/100 WBC (Bld) 0.4 % 0-1 [facility] Work Phone: Bilirubin [Mass/Vol] 0.30 mg/dL 0.20-1.00 [facility] Work Phone: [phone] Comment on above: For patients on eltr ombopag therapy, use of Dimension [place] TBIL is not recommended. Chloride [Moles/Vol] 102 mmol/L 98-107 [facility] Work Phone: [phone] Eosinophils/100 WBC (Bld) 1.4 % 0-5 [facility] Work Phone: [phone] Glucose [Mass/Vol] 96 mg/dL 74-106 [facility] Work Phone: [phone] Neutrophils (Bld) [#/Vol] 5.6 10*3/uL 2.0-7.7 [facility] Work Phone: [phone] Neutrophils/100 WBC (Bld) 75.2 % 47-70 [facility] Work Phone: Potassium [Moles/Vol] 3.6 mmol/L 3.5-5.1 [facility] Work Phone: Protein [Mass/Vol] 6.7 g/dL 6.4-8.2 [facility] Work Phone: [phone] Sodium [Moles/Vol] 138 mmol/L 136-145 [facility] Work Phone: WBC (Bld) [#/Vol] 7.4 10*3/uL 4.4-11.0 [facility] Work Phone: Blood erythrocytes count (nu mber/volume)on 09-05-2021 RBC (Bld) [#/Vol] 4.28 10*6/uL 4.6-6.2 [facility] Work Phone: [phone] Blood hemoglobin measurement (mass/volume)on 09-05-2021 Hemoglobin (Bld) [Mass/Vol] 14.0 g/dL 13.0-16.5 [facility] Work Phone: Blood lymphocytes/100 leukoc yteson 09-05-2021 Lymphocytes/100 WBC (Bld) 13.8 % 19-41 [facility] Work Phone: Blood monocytes/100 leukocyt eson 09-05-2021 Monocytes/100 WBC (Bld) 8.9 % 0-10 [facility] Work Phone: Blood platelet mean volumeon 09-05-2021 Platelet mean volume (Bld) [Entitic vol] 10.1 fL 6.2-12.0 [facility] Work Phone: Determination of erythrocyte mean corpuscular volume (MCV)on 09-05-2021 MCV (RBC) [Entitic vol] 97.2 fL 80-94 [facility] Work Phone: Hematocrit Auto (Bld) [Volum e fraction]on 09-05-2021 Hematocrit (Bld) [Volume fraction] 41.6 % 40-54 [facility] Work Phone: Laboratory - Chemistry and C hemistry - challengeon 09-05-2021 ALP [Catalytic activity/Vol] 129 U/L 45-117 [facility] Work Phone: ALT [Catalytic activity/Vol] 10 U/L 16-61 [facility] Work Phone: CO2 [Moles/Vol] 32.0 mmol/L 21.0-32.0 [facility] Work Phone: Globulin (S) [Mass/Vol] 3.6 g/dL 2.2-4.2 [facility] Work Phone: Urea nitrogen/Creatinine [Mass ratio] 17.5 mg/mg 10-20 [facility] Work Phone: Laboratory - Hematology and Cell countson 09-05-2021 Erythrocyte distribution width (RBC) [Entitic vol] 45.0 fL 35.1-43.9 [facility] Work Phone: Erythrocyte distribution width (RBC) [Ratio] 12.7 % 11.6-14.6 [facility] Work Phone: Immature granulocytes/100 WBC (Bld) 0.300 % 0.0-0.9 [facility] Work Phone: Comment on above: IG% - Immature Granu locytes (promyelocytes, myelocytes and metamyelocytes) > 1% indicates that a LEFT SHIFT is Present. MCH (RBC) [Entitic mass] 32.7 pg 27.0-32.0 [facility] Work Phone: Nucleated RBC/100 WBC (Bld) [Ratio] 0 % 0-5 [facility] Work Phone: MCHC Auto (RBC) [Mass/Vol]on 09-05-2021 MCHC (RBC) [Mass/Vol] 33.7 g/dL 32-36 [facility] Work Phone: No Panel Informationon 09-05 Estimated GFR (MDRD) Amer 79 mL/min >60 [facility] Work Phone: Comment on above: GFR Calc Estimated GFR (MDRD) Non-Af Amer 66 mL/min >60 [facility] Work Phone: Comment on above: Non- GFR Calc Levetiracetam (Keppra) Level 27.5 ug/mL [facility] Work Phone: Comment on above: Performed at: - [address] [id number] Director: Amy Mckeon MD, Phone: [phone] Platelets bldon 09-05-2021 Platelets (Bld) [#/Vol] 164 10*3/uL 150-450 [facility] Work Phone: Serum or plasma albumin angel urement (mass/volume)on 09-05-2021 Albumin [Mass/Vol] 3.1 g/dL 3.2-5.0 [facility] Work Phone: Serum or plasma albumin/glob ulin mass ratioon 04-18-2022 Albumin/Globulin [Mass ratio] 0.9 {ratio} 0.9-2.4 [facility] Work Phone: Serum or plasma calcium angel urement (mass/volume)on 09-05-2021 Calcium [Mass/Vol] 9.1 mg/dL 8.5-10.1 [facility] Work Phone: Serum or plasma creatinine m easurement (mass/volume)on 09-05-2021 Creatinine [Mass/Vol] 1.14 mg/dL 0.70-1.30 [facility] Work Phone: Comment on above: The validity of the calculated GFR & GFRAA in patients over 70 years has not been determined. Clinical correlation is essential. Serum or plasma phenytoin me asurement (mass/volume)on 09-05-2021 Phenytoin [Mass/Vol] 8.6 mL 10.0-20.0 [facility] Work Phone: Serum or plasma urea nitroge n measurement (mass/volume)on 09-05-2021 Urea nitrogen [Mass/Vol] 20 mg/dL 7-18 [facility] Work Phone: Thin prep Papanicolaou smear with manual screeningon 09-05-2021 Thin prep Papanicolaou smear with manual screening 27 U/L 15-37 [facility] Work Phone: Thin prep Papanicolaou smear with manual screening 4 5-15 [facility] Work Phone: COVID PCR, SCREENING CONGREG ATEon 11-12-2019 CORONAVIRUS 2019,PCR NOT DETECTED Normal Not Detected [facility] Comment on above: Result Comment: This assay is designed to detect the N, ORF1ab and/or S genes of SARS-CoV-2 via nucleic acid amplification. A Negative (NOT DETECTED) result does not preclude 2019-nCoV infection since the adequacy of sample collection and/or low viral burden may result in presence of viral nucleic acids below the clinical sensitivity of this test method. Negative (NOT DETECTED) result should not be used as the sole basis for treatment or other patient management decisions. Rather negative results should be combined with clinical observations, patient history, and epidemiological information to make patient management decisions. Fact sheet for providers: https://www.fda.gov/media/748646/download Fact sheet for patients: https://www.fda.gov/media/765020/download This test has received FDA Emergency Use Authorization (EUA) and has been verified by [facility] ([facility]). This test is only authorized for the duration of time that circumstances exist to justify the authorization of the emergency use of in vitro diagnostic tests for the detection of SARS-CoV-2 virus and/or diagnosis of COVID-19 infection under section 564(b)(1) of the Act, 21 U.S.C. 360bbb-3(b)(1), unless the authorization is terminated or revoked sooner. [facility]) is certified under CLIA-88 as qualified to perform high complexity testing. This tests analytical performance characteristics have been determined by [facility]. Testing is performed at [facility] is located at [address] [place] [address] (CLIA License #[id number], CAP #[id number]). Performed By: #### C VCLA #### [facility] [address] [place] [address] COVID PCR, SCREENING CONGREG ATEon 11-11-2019 Lab Specimen Source Nasal, Nasopharyngeal Normal [facility] Comment on above: Performed By: #### C VCLA #### [facility] [address] [place] [address] Culture, urine Bacteria identified Cx Nom (U) Klebsiella oxytoca [facility] Work Phone: Vital Signs Date Time Vital Sign Value Performing Clinician Virginiai lina 12-15-2024 14:10-0400 Diastolic blood pressure 73 mm[Hg] Berry Davis MD Work Phone: [facility] 12-15-2024 14:10-0400 Heart rate 87 /min Berry Davis MD Work Phone: [facility] 12-15-2024 14:10-0400 SaO2% (BldA) [Mass fraction] 92 % Berry Davis MD Work Phone: [facility] 12-15-2024 14:10-0400 Systolic blood pressure 149 mm[Hg] Berry Davis MD Work Phone: [facility] 03-26-2024 14:47-0500 Diastolic blood pressure 82 mm[Hg] Kesha Mejia MD Work Phone: [facility] 03-26-2024 14:47-0500 Heart rate 80 /min Kesha Mejia MD Work Phone: [facility] 03-26-2024 14:47-0500 SaO2% (BldA) [Mass fraction] 95 % Kesha Mejia MD Work Phone: [facility] 03-26-2024 14:47-0500 Systolic blood pressure 140 mm[Hg] Kesha Mejia MD Work Phone: [facility] 01-28-2024 09:18-0400 Body height 174 cm Kesha Mejia MD Work Phone: [facility] 01-28-2024 09:18-0400 Diastolic blood pressure 84 mm[Hg] Kesha Mejia MD Work Phone: [facility] 01-28-2024 09:18-0400 Heart rate 74 /min Kesha Mejia MD Work Phone: [facility] 01-28-2024 09:18-0400 SaO2% (BldA) [Mass fraction] 97 % Kesha Mejia MD Work Phone: [facility] 01-28-2024 09:18-0400 Systolic blood pressure 132 mm[Hg] Kesha Mejia MD Work Phone: [facility] Healthcare Encounters Encounter Date Encounter Type Care Provider Facility Start: 01-12-2025 End: 01-14-2025 Telephone encounter Berry Davis MD Work Phone: Neurology Comment on above: Medication Question Start: 12-30-2024 End: 12-30-2024 Telephone encounter Berry Davis MD Work Phone: Neurology Comment on above: Medication Question Start: 12-23-2024 End: 12-23-2024 ambulatory BERRY DAVIS Facility:[id number] Start: 12-15-2024 End: 12-15-2024 Patient encounter procedure Berry Davis MD Work Phone: Neurology Comment on above: Parkinsonism, unspec ified Parkinsonism type (HCC) (Primary Dx); USP current use of antipsychotic medication; Localization-related epilepsy (HCC); 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) Start: 12-15-2024 End: 12-15-2024 ambulatory BERRY DAVIS Facility:[facility] Start: 11-25-2024 ambulatory Tran PIERRE Facili ty:[facility] Start: 09-29-2024 End: 09-29-2024 ambulatory Zak Henry MD [facility] Work Phone: Start: 09-29-2024 End: 09-29-2024 Departed Referred Tran Bruce MD [facility] Start: 09-29-2024 End: 09-29-2024 ambulatory Tran PIERRE Facility:[facility] Start: 09-26-2024 ambulatory Zak PIERRE Faci lity:[facility] Start: 09-26-2024 Registered Referred Tran Bruce MD -[facility] Start: 09-24-2024 ambulatory Zak PIERRE Faci lity:[facility] Start: 09-24-2024 Registered Referred Tran Bruce MD -[facility] Start: 09-16-2024 End: 09-16-2024 ambulatory Zak Henry MD [facility] Work Phone: Start: 09-16-2024 End: 09-16-2024 Departed Referred Tran Bruce MD -[facility] Start: 09-16-2024 Registered Referred Tran Bruce MD -[facility] Start: 09-16-2024 End: 09-16-2024 ambulatory Zak PIERRE Facility:[facility] Start: 08-28-2024 End: 08-28-2024 ambulatory Zak Henry MD [facility] Work Phone: Start: 08-28-2024 End: 08-28-2024 Departed Referred Tran Bruce MD -[facility] Start: 08-28-2024 Registered Referred Tran Bruce MD -[facility] Start: 08-28-2024 End: 08-28-2024 ambulatory Tran PIERRE Facility:[facility] Start: 08-18-2024 End: 08-18-2024 ambulatory Zak Henry MD [facility] Work Phone: Start: 08-18-2024 End: 08-18-2024 Departed Referred Tran Bruce MD -[facility] Start: 08-18-2024 Registered Referred Tran Bruce MD -[facility] Start: 08-18-2024 End: 08-18-2024 ambulatory Tran PIERRE Facility:[facility] Start: 08-06-2024 Registered Referred Tran Bruce MD -[facility] Start: 08-05-2024 End: 08-06-2024 ambulatory Zak Henry MD [facility] Work Phone: Start: 08-05-2024 End: 08-06-2024 Departed Referred Tran Bruce MD -[facility] Start: 08-05-2024 End: 08-05-2024 ambulatory Tran PIERRE Facility:[facility] Start: 06-10-2024 ambulatory Tran PIERRE Facili ty:[facility] Start: 06-10-2024 [facility] Start: 04-28-2024 End: 04-28-2024 Office outpatient visit 25 minutes Meri Moraes [employer] Work Phone: [facility] Comment on above: Parkinson's disease without dyskinesia, with fluctuating manifestations (CMS/HCC) (Primary Dx); Partial symptomatic epilepsy with complex partial seizures, not intractable, 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) Start: 04-28-2024 End: 04-28-2024 Bamboo flowsheet Meri Moraes RECOVERY COLLECTOR Work Phone: [facility] Start: 04-28-2024 End: 04-28-2024 Bamboo flowsheet Meri S Weygandt RECOVERY COLLECTOR Work Phone: [facility] Start: 04-28-2024 End: 04-28-2024 ambulatory MERI S KUNALANDT Not Available Start: 03-26-2024 End: 03-26-2024 Office outpatient visit 25 minutes Kesha Mejia MD Work Phone: [facility] Comment on above: Parkinson's disease without dyskinesia, with fluctuating manifestations (CMS/HCC) (Primary Dx); Partial symptomatic epilepsy with complex partial seizures, not intractable, 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) Start: 03-26-2024 End: 03-26-2024 ambulatory KESHA MEJIA Not Available Start: 03-26-2024 End: 03-26-2024 Bamboo flowsheet Kesha Mejia MD Work Phone: [facility] Start: 03-26-2024 End: 03-26-2024 Bamboo flowsheet Kesha Mejia MD Work Phone: [facility] Start: 03-12-2024 End: 03-12-2024 ambulatory [facility] Facility:[facility] Start: 02-22-2024 End: 02-22-2024 ambulatory MERI SYEDANDT Not Available Start: 02-22-2024 End: 02-22-2024 Office outpatient visit 15 minutes Meri S Wealfonsoandt RECOVERY COL[employer]OR Work Phone: [facility] Comment on above: Parkinson's disease without dyskinesia, with fluctuating manifestations (CMS/HCC) (Primary Dx); Partial symptomatic epilepsy with complex partial seizures, not intractable, 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) Start: 02-19-2024 End: 02-19-2024 ambulatory [facility] Facility:[facility] Start: 01-28-2024 End: 01-28-2024 Bamboo flowsheet Kesha Mejia MD Work Phone: [facility] Start: 01-28-2024 End: 01-28-2024 Bamboo flowsheet Kesha Mejia MD Work Phone: [facility] Start: 01-28-2024 End: 01-28-2024 Office outpatient visit 25 minutes Kesha Mejia MD Work Phone: [facility] Comment on above: Parkinson's disease without dyskinesia, with fluctuating manifestations (CMS/HCC) (Primary Dx); Partial symptomatic epilepsy with complex partial seizures, not intractable, 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) Start: 01-28-2024 End: 01-28-2024 ambulatory KESHA MEJIA Not Available Start: 01-25-2024 ambulatory Tran Janis PIERRE Facili ty:[facility] Start: 12-25-2023 End: 12-25-2023 ambulatory Tran PIERRE Facility:[facility] Start: 12-14-2023 End: 12-14-2023 ambulatory MERI MORAES Not Available Start: 11-08-2023 End: 11-08-2023 ambulatory KESHA MEJIA Not Available Start: 07-10-2023 End: 07-10-2023 ambulatory [facility] Work Phone: Start: 07-10-2023 End: 07-10-2023 [facility] Start: 05-09-2023 End: 05-09-2023 ambulatory [facility] Work Phone: Start: 05-09-2023 End: 05-09-2023 [facility]ed [facility] Start: 03-20-2023 End: 03-20-2023 ambulatory [facility] Work Phone: Start: 03-20-2023 End: 03-20-2023 Departed Referred [facility] Start: 01-23-2023 End: 01-23-2023 ambulatory [facility] Work Phone: Start: 01-23-2023 End: 01-23-2023 [facility]ed [facility] Start: 10-02-2022 End: 10-02-2022 ambulatory [facility] Work Phone: Start: 10-02-2022 End: 10-02-2022 Departed Referred [facility] Start: 08-07-2022 End: 08-07-2022 ambulatory [facility] Work Phone: Start: 08-07-2022 End: 08-07-2022 Departed Referred [facility] Start: 03-07-2022 End: 03-07-2022 ambulatory [facility] Work Phone: Start: 03-07-2022 End: 03-07-2022 Departed Referred [facility] Start: 03-07-2022 Registered Referred [facility] Start: 02-20-2022 End: 02-20-2022 ambulatory [facility] Work Phone: Start: 02-20-2022 End: 02-20-2022 Departed Referred [facility] Start: 10-03-2021 End: 10-03-2021 Departed Referred [facility] Start: 09-05-2021 End: 09-05-2021 Departed Referred [facility] Procedures Date Procedure Procedure Detail Performing Clinician Start: 09-29-2024 Vitamin D, 25-hydrox y measurement Zak Henry MD Comment on above: Vitamin D StatusDefi ciency: <20 ng/mL (50nmol/L)Insufficiency: 20-30 ng/mL (50-75 nmol/L)Sufficiency: 30-100 ng/mL (75-250 nmol/L)Toxicity: >100 ng/mL (>250 nmol/L) Start: 08-06-2024 Urine culture Zak madrigal MD Start: 08-06-2024 Urnls dip stick/tabl et reagent auto microscopy Zak Henry MD Start: 06-10-2024 Measurement of renal function Zak Henry MD Comment on above: GFR Calc Start: 05-09-2023 Urine culture Start: 03-19-2023 Urine culture Urine culture Plan of Treatment Date Care Activity Detail Author Start: 01-19-2025 Influenza vaccination Influenza Vacc ine (#1) [facility] Start: 05-21-2024 Advance Directive Discussion Advance Directive Discussion [facility] Start: 05-21-2024 Medicare Advantage Annual Wellness Visit Medicare Advantage Annual Wellness Visit [facility] Start: 04-28-2024 End: 04-28-2024 Patient encounter procedure [facility] Comment on above: Arrived Start: 04-28-2024 End: 04-28-2024 Telemedicine consultation with patient 04/28/2024 1:30 PM EST Telemedicine [facility] [address] [place] [phone] Meri Moraes NP [address] [place], [place] [id number] [facility] Start: 03-26-2024 End: 03-26-2024 Patient encounter procedure 03/26/2024 3:00 PM EST Office Visit [facility] [address] [place] [phone] Kesha Mejia MD [address] [place], [place] [phone] Arrived [facility] Comment on above: Arrived Start: 01-28-2024 End: 01-28-2024 Patient encounter procedure 01/28/2024 9:20 AM EDT Office Visit [facility] [address] [place] [phone] Kesha Mejia MD [address] [place], [place] [id number] Arrived [facility] Comment on above: Arrived Start: 01-20-2024 Influenza vaccination Influenza Vacc ine (#1) [facility] Start: 2015 RSV Vaccine (1 - 1-d ose 75+ series) RSV Vaccine (1 - 1-dose 75+ series) [facility] Start: 05-30-2010 Diabetes Screening Diabetes Screenin g [facility] Start: 12-23-1998 Urine microalbumin profile DTaP,Tdap,Td Vaccine (1 - Tdap) [facility] Start: 1990 Shingrix Vaccine (1 of 2) Shingrix Vaccine (1 of 2) [facility] Start: 1958 Anxiety Screening Anxiety Screening [facility] Start: 1958 Depression Screening Depression Scre ening [facility] End: 12-15-2025 EPIL EEG ROUTINE EPIL EEG ROUTINE NEUROLOGY Routine Localization-related epilepsy (HCC) 1 Occurrences starting 12/15/2024 until 12/15/2025 [facility] Work Phone: Comment on above: 1 Occurrences starti ng 12/15/2024 until 12/15/2025 Immunizations Immunization Date Immunization Notes Care Provider [facility] 02-11-2024 influenza virus vaccine, unspecified formulation Berry Davis MD Work Phone: [facility] 02-13-2023 influenza virus vaccine, unspecified formulation Kesha Mejia MD Work Phone: [facility] 03-20-2016 Influenza virus vaccine [facility] 03-10-2015 Influenza virus vaccine [facility] 01-19-2014 Influenza virus vaccine [facility] Payers Date Payer Category Payer Self-pay [id number] 2020 Medicaid [id number] 2020 Medicare (Managed Care) 1.2. [id number] 2020 Private Health Insurance [facility] MEDICAID [id number] 2020 Medicaid [id number] 2020 Medicaid [id number] 2020 Unknown [id number] 2015 Unknown [id number] 1979 Medicare [id number] 1979 Medicare [id number] 1940 Unknown [id number] 2.840.1.097052.3.579.2. 1259 1940 Unknown [id number] 2.840.1.744553.3.579.2. 1259 1940 Unknown [id number] 2.840.1.157715.3.579.2. 1259 1940 Unknown [id number] 2.16840.1.489959.3.579.2. 1259 1940 Unknown [id number] 2.16840.1.331797.3.579.2. 1259 1940 Unknown [id number] 2.16840.1.015826.3.579.2. 1259 Medicare [id number] Unknown [id number] 2.16840.1.956483.3.579.2. 462 Unknown [id number] 2.16840.1.322901.3.579.2. 462 Unknown [id number] 2.16.840.1.610223.3.579.2. 462 Unknown [id number] 2.16.840.1.084836.3.579.2. 462 Unknown [id number] 2.16.840.1.524664.3.579.2. 462 Unknown [id number] 2.16.840.1.155346.3.579.2. 462 Unknown [id number] 2.16840.1.899689.3.579.2. 462 Unknown [id number] 2.16840.1.189574.3.579.2. 462 Unknown [id number] 2.16840.1.236088.3.579.2. 462 Unknown [id number] 2.16.840.1.651215.3.579.2. 462 Unknown [id number] 2.16840.1.143695.3.579.2. 462 Unknown [id number] 2.840.1.353988.3.579.2. 462 Unknown [id number] 2.840.1.627352.3.579.2. 462 Unknown [id number] 2.840.1.476720.3.579.2. 462 Social History Date Type Detail Facility Start: 05-13-2018 End: 05-13-2018 Tobacco smoking status [facility] Unknown if ever smoked [facility] Start: 06-05-2016 None [facility] Start: 05-13-2018 [facility] Start: 06-05-2016 Non-smoker [facility] Start: 1940 Sex Assigned At Male [facility] Start: 05-13-2018 End: 11-08-2023 Tobacco smoking status [facility] Never smoked tobacco [facility] Start: 11-08-2023 Tobacco use and exposure Smokeless tobacco non-user [facility] Start: 11-08-2023 End: 01-28-2024 Alcoholic beverage intake Lifetime non-drinker (finding) [facility] Start: 01-28-2024 End: 12-15-2024 History of Social function [facility] Start: 01-28-2024 End: 12-15-2024 Tobacco use panel [facility] Start: 1940 Sex assigned at Not on file [facility] Start: 08-21-2024 End: 09-04-2024 Sex Male (finding) [facility] Start: 12-09-2007 Alcoholic beverage intake Current non-drinker of alcohol (finding) [facility] Start: 04-21-2012 National Score (1-100), lower number is lower risk 72 [facility] Clinical Notes 10-25-2022 to 01-14-2025 Telephone Encounter - Monsterrat Solorzano RN - 01/14/2025 8:36 AM EDTTelephone Encounter - Montserrat Solorzano RN - 01/14/2025 8:36 AM EDTPatient InstructionsPatient Instructions Note Date & Type Note Facility 01-14-2025 Telephone encounter Note Plan faxed to [facility] @ [phone] with confirmation. KALEY Mccarthy, RN, BA [facility] Work Phone: 01-14-2025 Miscellaneous Notes Plan faxed to [facility] @ [phone] with confirmation. KALEY Mccarthy, RN, BA I think he is doing the 50 mg chewable tabs. If that's correct, he should taper as follows: - Week 1: 100 mg twice a day - Week 2: 50 mg AM 100 mg PM - Week 3: 50 mg twice a day - Week 4: 50 mg once a day - Then stop If I'm incorrect about the formulation can adjust the taper. This RN attempted to reach patient Alaina at first number. The [phone] is not in service. Secondary, mobile number was tried. Able to reach pt at [phone] and he states that he is ready to titrate off of the phenytoin. This RN to relay to TW. We ended call pleasantly. RIAN MccarthyN, RN, BA Call received for Berry Davis MD regarding Siobhan Ferrari 1940. Caller: [place] CARTER Patient Identified by Name and : Yes Was permission obtained from patient ? NA Reason for Call: Medication Question Medication: Phenytoin Dosage: 100 / 50 / 100 mg; Frequency: 3 times daily How long have you been taking this medication? unknown Question regarding: Other - nurse asking if patient is to taper off Phenytoin? Preferred pharmacy: [facility] [phone] Last Office Visit: Visit date not found Last [facility] visit: Visit date not found Next scheduled appointment: Visit date not found Best number to reach caller: [phone] Best time to reach caller: any Is it OK to leave a detailed voice message? Yes Ana Cheema documented in this encounter [facility] 01-13-2025 Telephone encounter Note I think he is doing the 50 mg chewable tabs. If that's correct, he should taper as follows: - Week 1: 100 mg twice a day - Week 2: 50 mg AM 100 mg PM - Week 3: 50 mg twice a day - Week 4: 50 mg once a day - Then stop If I'm incorrect about the formulation can adjust the taper. [facility] Work Phone: 01-12-2025 Telephone encounter Note This RN attempted to reach patient Alaina at first number. The [phone] is not in service. Secondary, mobile number was tried. Able to reach pt at [phone] and he states that he is ready to titrate off of the phenytoin. This RN to relay to TW. We ended call pleasantly. KALEY Mccarthy, RN, BA T [facility] 01-12-2025 Telephone encounter Note Call received for Berry Davis MD regarding Siobhan Ferrari 1940. Caller: [place] CARTER Patient Identified by Name and : Yes Was permission obtained from patient ? NA Reason for Call: Medication Question Medication: Phenytoin Dosage: 100 / 50 / 100 mg; Frequency: 3 times daily How long have you been taking this medication? unknown Question regarding: Other - nurse asking if patient is to taper off Phenytoin? Preferred pharmacy: [facility] [phone] Last Office Visit: Visit date not found Last [facility] visit: Visit date not found Next scheduled appointment: Visit date not found Best number to reach caller: [phone] Best time to reach caller: any Is it OK to leave a detailed voice message? Yes Ana Cheema T [facility] 12-30-2024 Telephone encounter Note Can you let them know my message re: the EEG, no epileptiform discharges, would suggest they try coming off dilantin if they are open to it. I put the therapy orders in if you can fax them over. Thanks [facility] 12-30-2024 Miscellaneous Notes Can you let them know my message re: the EEG, no epileptiform discharges, would suggest they try coming off dilantin if they are open to it. I put the therapy orders in if you can fax them over. Thanks This RN called to obtain more information from Key. She states that her call was not related to the Zyprexa. Answering company secretary stated her call had to be related to a medication and would not listen to what the call was pertaining to. Key is calling to check to see if the EEG had been read? This RN states that results of EEG were read and MCM sent to pt from TW. Key states that he does not have access to nor his . We will need to send recommendation to them. To note, Zyprexa dose has been decreased from 5 mg to 2.5 mg. Key wanted to let TW know this even though psych is lead. States that the purpose of the visit on 12/15/2024 was for PT/OT as he is losing a lot of function d/t PD. Appears this was not discussed and the forgot. Key states that she gave the patient a letter stating his need for PT/OT and it was to be presented to him at the time of the visit. This RN cannot say where the note is as it was not scanned into the chart and she does not work in the region. Explained that TW now has coverage. Key will be faxing the original letter she sent over. She is asking if can place orders for this? If so, she has provided the fax number below: [phone], Attn Key KALEY Mccarthy, RN, BA Call received for Berry Davis MD regarding Siobhan Ferrari 1940. Caller: Key Patient Identified by Name and : Yes Reason for Call: Medication Question Key from [facility] called the office concerning a Med Change. Key is requesting a callback regarding the following Zyprexa (Olanzapine). Last Office Visit: Visit date not found Last [facility] visit: Visit date not found Next scheduled appointment: Visit date not found Best number to reach caller: [phone] Best time to reach caller: No Is it OK to leave a detailed voice message? No Taylor Evans documented in this encounter [facility] 12-30-2024 Telephone encounter Note This RN called to obtain more information from Key. She states that her call was not related to the Zyprexa. Answering company secretary stated her call had to be related to a medication and would not listen to what the call was pertaining to. Key is calling to check to see if the EEG had been read? This RN states that results of EEG were read and MCM sent to pt from TW. Key states that he does not have access to nor his . We will need to send recommendation to them. To note, Zyprexa dose has been decreased from 5 mg to 2.5 mg. Key wanted to let TW know this even though psych is lead. States that the purpose of the visit on 12/15/2024 was for PT/OT as he is losing a lot of function d/t PD. Appears this was not discussed and the forgot. Key states that she gave the patient a letter stating his need for PT/OT and it was to be presented to him at the time of the visit. This RN cannot say where the note is as it was not scanned into the chart and she does not work in the region. Explained that TW now has coverage. Key will be faxing the original letter she sent over. She is asking if TW can place orders for this? If so, she has provided the fax number below: [phone], Attn KALEY Gordon, RN, BA [facility] Work Phone: 12-30-2024 Telephone encounter Note Call received for Berry Davis MD regarding Siobhan Ferrari 1940. Caller: Key Patient Identified by Name and : Yes Reason for Call: Medication Question Key from [facility] called the office concerning a Med Change. Key is requesting a callback regarding the following Zyprexa (Olanzapine). Last Office Visit: Visit date not found Last [facility] visit: Visit date not found Next scheduled appointment: Visit date not found Best number to reach caller: [phone] Best time to reach caller: No Is it OK to leave a detailed voice message? No Taylor Evans [facility] 12-15-2024 Instructions Berry Davis MD - 12/15/2024 2:59 PM EDT Parkinsonian symptoms may be caused / worsened by Zyprexa (aka olanzapine) - ideally this should be changed to something with less dopamine blocking effects like Seroquel, talk to your psychiatrist about this. If not able to change that, we could consider increasing the carbidopa/levodopa. Check EEG to see if there are signs of predisposition to seizures. We should consider tapering off dilantin regardless of the results however. documented in this encounter [facility] 12-15-2024 Note HNO ID: [id number] Author: BERRY DAVIS MD Service: ? Author Type: Physician Type: Progress Notes Filed: 12/15/2024 23:55 Note Text: NEW PATIENT EVALUATION Subjective HPI Siobhan Ferrari is a 84 year old right-handed male who presents for evaluation of PD. Dr. Bruce is the PCP. Here with his . He notes he has had PD for around 12-15 years. Previously following with Dr. Mejia. First symptom was shakiness / difficulty with manual dexterity. Seemed to start in the right hand. They also had noticed gait changes. Has been in a long term since 2017. Was using a walker for at least a few years before going to the [place], canes before that, then using a walker for years at the long term but now in a wheelchair all the time, has a lift chair to go to the bathroom, gets his exercise from wheeling around the hallways and therapy. PT is in process right now however because being held pending this visit. Usually gets put into bed early but then doesn't go to sleep until around 2300. Stretches his legs out, listens to music / TV. Has been on Zyprexa for decades. 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 Was seeing a mental health doctor locally after that, currently has a psychiatry RECOVERY COLLECTOR at the facility listed as being Wil[facility] Hurtado RECOV[employer] COLLECTOR. He says sense of smell is OK. No known dream enactment. Has constipation on meds. Memory is seems decent, good with numbers / names / who's related to who. No hallucinations. Carbidopa/levodopa 25/100 TID 0700, 1430, 2030 Donepezil 10 mg QHS Phenytoin 100 / 50 / 100 mg Olanzapine 5 mg QHS Keppra 750 mg BID Venlafaxine 225 mg QHS Medications: Current Outpatient Medications Medication Sig Dispense Refill aspirin, enteric coated (ASPIRIN, ENTERIC COATED) 81 mg EC tablet Take 81 mg by mouth. atorvastatin (LIPITOR) 20 mg tablet Take 20 mg by mouth. donepezil (ARICEPT) 10 mg tablet Take 10 mg by mouth. amLODIPine (NORVASC) 2.5 mg tablet white petrolatum-mineral Oil (LUBRIFRESH P.M.) 83-15 % oint phenytoin chewable (DILANTIN) 50 mg tablet Take 100 mg by mouth. Valsartan-hydroCHLOROthiazide 320-12.5 mg per tablet Take 1 tablet by mouth once daily. venlafaxine ER (EFFEXOR XR) 75 mg 24 hr capsule potassium chloride ER (KLOR-CON) 20 mEq tablet levETIRAcetam (KEPPRA) 750 mg tablet Take 750 mg by mouth. senna (SENOKOT) 8.6 mg tab 1 (one) time each day at the same time loratadine (CLARITIN) 10 mg tablet Take 10 mg by mouth. cholecalciferol, Vitamin D3, (VITAMIN D3) 1,250 mcg (50,000 unit) cap capsule carbidopa-levodopa (SINEMET 25-100) 25-100 mg per tablet Take 1 tablet by mouth. Ascorbic Acid 1,000 mg tablet furosemide(LASIX 20 MG TAB) Take one(1) tablet daily. 0 venlafaxine hcl(EFFEXOR XR 150 MG 24 HR CAP) Take one(1) tablet two(2) times daily. 0 MULTIVITAMIN TAB Take one(1) tablet daily. 0 GEMFIBROZIL 600 MG TAB Take one(1) tablet two(2) times daily. (Patient not taking: Reported on 12/15/2024) 0 olanzapine(ZYPREXA 7.5 MG TAB) Take one(1) tablet daily at bedtime. (Patient not taking: Reported on 12/15/2024) 0 TAMSULOSIN SR 0.4 MG 24 HR CAP Take one(1) tablet daily. (Patient not taking: Reported on 12/15/2024) 0 No current facility-administered medications for this visit. ROS ROS: His ROS was positive for that mentioned in the HPI. Otherwise a 10-point ROS was completed and was negative. ALLERGIES No Known Allergies Past Medical History: left cerebral AVM resection, epilepsy, parkinsonism, psychiatric illness on custodial antipsychotic, HTN Family History:Noncontributory Social History: Social History Tobacco Use Smoking status: Never Substance Use Topics Alcohol use: No In [place] Objective 12/15/24 1410 BP: 149/73 BP Site: Left Arm BP Position: Sitting BP Cuff Size: Regular Adult Pulse: 87 SpO2: 92% Physical Examination General Appearance: Well appearing, alert, in no acute distress, well-hydrated, well nourished. Head: Normocephalic Neck: Supple Heart: RRR Mod LE edema Neurologic Examination Mental Status: He is alert. Reg 3/3 TVG, December x 3 x, 2024, mon (helped), WORLD -> DL..RLD.. can name simple objects, difficulty with repetition, DR 0/3 (correct category) -> 0/3 -> 3/3. Affect is appropriate. Cranial Nerves: Extraocular movements show full and smooth pursuits. No nystagmus. Right lower quadrant vision impaired can sense motion but not count fingers. Facial sensation is intact. Facial activation is symmetric. Hearing is intact to conversation. There is severe hypomimia. There is mod hypophonia. There is subtle dysarthria. Tongue is midline. Palate elevates symmetrically. Shoulder shrug is delayed on left. Motor: Muscle bulk is normal. Muscle power is full. Severe left mod-severe right bradykinesia, mod L>R rigidity, (more content not included)... [facility] 12-15-2024 History of Presen t illness Narrative NEW PATIENT EVALUATION Subjective HPI Siobhan Ferrari is a 84 year old right-handed male who presents for evaluation of PD. Dr. Bruce is the PCP. Here with his . He notes he has had PD for around 12-15 years. Previously following with Dr. Mejia. First symptom was shakiness / difficulty with manual dexterity. Seemed to start in the right hand. They also had noticed gait changes. Has been in a long term since 2017. Was using a walker for at least a few years before going to the [place], canes before that, then using a walker for years at the long term but now in a wheelchair all the time, has a lift chair to go to the bathroom, gets his exercise from wheeling around the hallways and therapy. PT is in process right now however because being held pending this visit. Usually gets put into bed early but then doesn't go to sleep until around 2300. Stretches his legs out, listens to music / TV. Has been on Zyprexa for decades. 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 Was seeing a mental health doctor locally after that, currently has a psychiatry RECOVERY COLLECTOR at the facility listed as being Wilton Hurtado RECOVERY COLLECTOR. He says sense of smell is OK. No known dream enactment. Has constipation on meds. Memory is seems decent, good with numbers / names / who's related to who. No hallucinations. Carbidopa/levodopa 25/100 TID 0700, 1430, 2030 Donepezil 10 mg QHS Phenytoin 100 / 50 / 100 mg Olanzapine 5 mg QHS Keppra 750 mg BID Venlafaxine 225 mg QHS Medications: Current Outpatient Medications Medication Sig Dispense Refill aspirin, enteric coated (ASPIRIN, ENTERIC COATED) 81 mg EC tablet Take 81 mg by mouth. atorvastatin (LIPITOR) 20 mg tablet Take 20 mg by mouth. donepezil (ARICEPT) 10 mg tablet Take 10 mg by mouth. amLODIPine (NORVASC) 2.5 mg tablet white petrolatum-mineral Oil (LUBRIFRESH P.M.) 83-15 % oint phenytoin chewable (DILANTIN) 50 mg tablet Take 100 mg by mouth. Valsartan-hydroCHLOROthiazide 320-12.5 mg per tablet Take 1 tablet by mouth once daily. venlafaxine ER (EFFEXOR XR) 75 mg 24 hr capsule potassium chloride ER (KLOR-CON) 20 mEq tablet levETIRAcetam (KEPPRA) 750 mg tablet Take 750 mg by mouth. senna (SENOKOT) 8.6 mg tab 1 (one) time each day at the same time loratadine (CLARITIN) 10 mg tablet Take 10 mg by mouth. cholecalciferol, Vitamin D3, (VITAMIN D3) 1,250 mcg (50,000 unit) cap capsule carbidopa-levodopa (SINEMET 25-100) 25-100 mg per tablet Take 1 tablet by mouth. Ascorbic Acid 1,000 mg tablet furosemide(LASIX 20 MG TAB) Take one(1) tablet daily. 0 venlafaxine hcl(EFFEXOR XR 150 MG 24 HR CAP) Take one(1) tablet two(2) times daily. 0 MULTIVITAMIN TAB Take one(1) tablet daily. 0 GEMFIBROZIL 600 MG TAB Take one(1) tablet two(2) times daily. (Patient not taking: Reported on 12/15/2024) 0 olanzapine(ZYPREXA 7.5 MG TAB) Take one(1) tablet daily at bedtime. (Patient not taking: Reported on 12/15/2024) 0 TAMSULOSIN SR 0.4 MG 24 HR CAP Take one(1) tablet daily. (Patient not taking: Reported on 12/15/2024) 0 No current facility-administered medications for this visit. ROS ROS: His ROS was positive for that mentioned in the HPI. Otherwise a 10-point ROS was completed and was negative. ALLERGIES No Known Allergies Past Medical History: left cerebral AVM resection, epilepsy, parkinsonism, psychiatric illness on custodial antipsychotic, HTN Family History:Noncontributory Social History: Social History Tobacco Use Smoking status: Never Substance Use Topics Alcohol use: No In [place] Objective 12/15/24 1410 BP: 149/73 BP Site: Left Arm BP Position: Sitting BP Cuff Size: Regular Adult Pulse: 87 SpO2: 92% Physical Examination General Appearance: Well appearing, alert, in no acute distress, well-hydrated, well nourished. Head: Normocephalic Neck: Supple Heart: RRR Mod LE edema Neurologic Examination Mental Status: He is alert. Reg 3/3 TVG, December x 3 x, 2024, mon (helped), WORLD -> DL..RLD.. can name simple objects, difficulty with repetition, DR 0/3 (correct category) -> 0/3 -> 3/3. Affect is appropriate. Cranial Nerves: Extraocular movements show full and smooth pursuits. No nystagmus. Right lower quadrant vision impaired can sense motion but not count fingers. Facial sensation is intact. Facial activation is symmetric. Hearing is intact to conversation. There is severe hypomimia. There is mod hypophonia. There is subtle dysarthria. Tongue is midline. Palate elevates symmetrically. Shoulder shrug is delayed on left. Motor: Muscle bulk is normal. Muscle power is full. Severe left mod-severe right bradykinesia, mod L>R rigidity, AFO right foot drop Sensory: Vibration reduced knees Reflex: Biceps and brachioradialis is 2+ bilaterally. Patellar reflex 1+ bilaterally. Coordination: Finger to nose is smooth without ataxia. Gait/station: In wheelchair DATA REVIEWED Actual films/image/tracing reviewed and summarized as follows: n/a Old records reviewed and summarized as follows: Reviewed prior neurology records from Dr. Mejia's office Assessment/Plan Assessment & Plan: Siobhan Ferrari is a 84 year old right-handed male with a history of left cerebral AVM resection, epilepsy, parkinsonism, psychiatric illness on custodial antipsychotic, HTN who presents for evaluation of parkinsonism. His examination demonstrates severe L>R parkinsonism, disorientation to time, impaired recall, impaired repetition, numbness in LEs, and inability to ambulate. Explained this is a complicated presentation. He is parkinsonian but has been on olanzapine for 40 years, symptoms when tried to come off. Explained typically first step would be to get him switched to an antipsychotic with less motor symptoms if he needs an antipsychotic. Quetiapine typically preferred, will forward to his psychiatry team. If unable to change could consider increasing levodopa, explained this with some concern about side effects. Encouraged activity. 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 Should taper off dilantin and continue keppra monotherapy, considering changing to lamotrigine if there are psychiatric symptoms that keppra could contribute to. They were concerned about changing / stopping AEDs. Will get an EEG first. Consider changes in interim or next visit. Continue donepezil for dementia. He should return to see me in 6 months. I spent 60 minutes with the patient, >50% of that time was devoted to counseling and coordination of care regarding the above issues. Berry Davis MD [facility] [facility] documented in this encounter [facility] 04-28-2024 History of Presen t illness Narrative Images from the original note were not included. CHIEF COMPLAINT: parkinsons HISTORY OF PRESENT ILLNESS: 84 year old male presented to office with spouse to follow up on parkinsons. Last visit sinemet prescribed, noted improvement with transfers, stiffness and feels overall transferring better. Currently in therapy and completed self exercises moving legs and arms while up in w/c and will have assistance for ambulation to increase activity/exercise. All questions and concerns addressed. Last visit 03/26/24 NMF: The patient presents for evaluation of Parkinson's disease. He is accompanied by an health care legal assistant from his long term. He has been experiencing increased weakness and difficulty with mobility in recent weeks. This has been noted by the staff, and he is willing to restart his medication if necessary. He has not noticed any significant changes in his condition, whether on or off the medication, and does not report any adverse effects from the medication. Current Outpatient Medications on File Prior to Visit Medication Sig Dispense Refill albuterol HFA 90 mcg/act inhaler Inhale 2 puffs every 4 (four) hours if needed for wheezing Ascorbic Acid (vitamin C) 500 MG tablet aspirin 81 MG EC tablet Take 81 mg by mouth Daily atorvastatin (Lipitor) 20 MG tablet Take 20 mg by mouth Daily cholecalciferol (Vitamin D-3) 1.25 MG (45980 UT) capsule Take 50,000 Units by mouth donepezil (Aricept) 10 MG tablet Take 10 mg by mouth furosemide (Lasix) 20 MG tablet Take 20 mg by mouth Daily levETIRAcetam (Keppra) 750 MG tablet Take 750 mg by mouth in the morning and 750 mg before bedtime. loratadine (Claritin) 10 MG tablet Take 10 mg by mouth Daily Multiple Vitamin (Multivitamin Adult) tablet as directed Orally OLANZapine (ZyPREXA) 5 MG tablet Take 5 mg by mouth at bedtime phenytoin (Dilantin) 50 MG chewable tablet Chew 100 mg in the morning and 100 mg before bedtime. potassium chloride CR (Klor-Con M20) 20 MEQ ER tablet Refresh P.M. (mineral oil-white petrolatum) ophthalmic ointment sennosides (Senokot) 8.6 MG tablet 1 (one) time each day at the same time valsartan-hydroCHLOROthiazide (Diovan-HCT) 320-12.5 MG tablet Take 1 tablet by mouth Daily venlafaxine (Effexor) 75 MG tablet Take 75 mg by mouth Daily venlafaxine XR (Effexor XR) 150 MG 24 hr capsule Take 150 mg by mouth Daily No current facility-administered medications on file prior to visit. Past Medical History: Diagnosis Date Parkinson disease ([facility]) Past Surgical History: Procedure Laterality Date APPENDECTOMY 20 years ago No family history on file. Social History Tobacco Use Smoking status: Never Smokeless tobacco: Never Substance Use Topics Alcohol use: Never ALLERGIES: Patient has no known allergies. REVIEW OF SYSTEMS: General: Appetite change: denies. Chills: denies. Fever: denies. Allergy/Immunology: Unusual rection to medications, food, animals or insects reaction: denies. Ophthalmologic: Visual acuity change: denies. ENT: Decreased hearing: denies. Endocrine: Weight loss: denies. Respiratory: Cough: denies. Wheezing: denies. Cardiovascular: Chest pain: denies. Palpitations: denies. Gastrointestinal: Abdominal pain: denies. Difficulty swallowing: denies Hematology: Bleeding problems: denies. Genitourinary: Painful urination: denies. Musculoskeletal: Joint pain: denies. Joint edema: denies. Skin: Rash: denies. Neurologic: Ataxia: denies, Tremor: denies. Psychiatric Anxiety: denies. Depression: denies. Insomnia: denies. Suicidal thoughts: denies. Also see HPI for elements of ROS documented therein and for details of positive findings, which shall supersede the foregoing. OBJECTIVE: Objective There were no vitals filed for this visit. There is no height or weight on file to calculate BMI. Examination: General Exam: pleasant, well nourished, well developed, in no acute distress Head: normocephalic, atraumatic Eyes: extraocular movement intact (EOMI), pupils equal, round, reactive to light, upper eyelids normal , lower eyelids normal Ears: no obvious hearing deficit Nose: Nares patent Neck/Throat: neck supple, full range of motion Oral Cavity: mucosa moist Skin: warm and dry Heart: no murmurs, regular rate and rhythm, S1, S2 normal Lungs: clear to auscultation bilaterally, good air movement, no wheezes, rales, rhonci, speaks in full sentences Chest: normal shape and expansion Abdomen: bowel sounds present, soft, nontender, nondistended, no guarding or rigidity Extremities: no edema, no cyanosis Musculoskeletal: no swelling or deformity Neurologic: nonfocal, alert and oriented, cognitive exam grossly normal, cranial nerves 2-12 grossly intact, motor strength 5/5 bilateral symmetrically, no drift, sensory exam intact, masked facies, no tremor, bilateral hand apraxia, gait deferred up in w/c Psych: pleasant, cooperative, good eye contact, speech clear, judgement and insight good ASSESSMENT/PLAN: 1. Parkinson's disease without dyskinesia, with fluctuating manifestations (CMS/HCC) (Primary) He reports no significant difference in symptoms whether on or off the medication. However, nursing staff have observed increased weakness and difficulty with transfers and lifting over the past month. A prescription for Sinemet 25/100 was provided, to be taken three times daily (morning, 11:30 AM, and 8:30 PM) on an empty stomach (30 minutes before or 2 hours after meals). The potential benefits and the importance of taking the medication on an empty stomach were discussed. He was informed that any improvement in symptoms would be noticeable immediately after taking the medication. Update: Improved, continue sinemet 25/100 mg 1 tablet ( morning, 1130am, 830pm). Defers needs to adjust dosage Continue therapy and increase daily activity/exercise 2. Partial symptomatic epilepsy with complex partial seizures, not intractable, 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) Controlled, continue keppra 750 mg bid, dilantin chewable 100 mg bid Last known seizure 45 years ago. Pt has been fully educated on their diagnosis, treatment options, follow up plan, and return instructions. documented in this encounter [facility] 03-26-2024 History of Presen t illness Narrative Images from the original note were not included. ,CHIEF COMPLAINT: Siobhan Ferrari is a 83 y.o. male here today for Chief Complaint Patient presents with Parkinson's Disease HISTORY OF PRESENT ILLNESS: History of Present Illness The patient presents for evaluation of Parkinson's disease. He is accompanied by an health care legal assistant from his long term. He has been experiencing increased weakness and difficulty with mobility in recent weeks. This has been noted by the staff, and he is willing to restart his medication if necessary. He has not noticed any significant changes in his condition, whether on or off the medication, and does not report any adverse effects from the medication. His last visit was on 01/28/2024, during which he reported no seizures and continued to exercise. It was unclear if the Sinemet was making a difference. He was taking Sinemet three times a day: in the morning, around 11:30 AM, and at 8:30 PM. He typically goes to bed around 11:00 PM. He also reports issues with balance. He has not experienced any instances of waking up with blood on his pillow or with a sore tongue or cheek. Current Outpatient Medications on File Prior to Visit Medication Sig Dispense Refill albuterol HFA 90 mcg/act inhaler Inhale 2 puffs every 4 (four) hours if needed for wheezing Ascorbic Acid (vitamin C) 500 MG tablet aspirin 81 MG EC tablet Take 81 mg by mouth Daily atorvastatin (Lipitor) 20 MG tablet Take 20 mg by mouth Daily cholecalciferol (Vitamin D-3) 1.25 MG (63701 UT) capsule Take 50,000 Units by mouth donepezil (Aricept) 10 MG tablet Take 10 mg by mouth furosemide (Lasix) 20 MG tablet Take 20 mg by mouth Daily levETIRAcetam (Keppra) 750 MG tablet Take 750 mg by mouth in the morning and 750 mg before bedtime. loratadine (Claritin) 10 MG tablet Take 10 mg by mouth Daily Multiple Vitamin (Multivitamin Adult) tablet as directed Orally OLANZapine (ZyPREXA) 5 MG tablet Take 5 mg by mouth at bedtime phenytoin (Dilantin) 50 MG chewable tablet Chew 100 mg in the morning and 100 mg before bedtime. potassium chloride CR (Klor-Con M20) 20 MEQ ER tablet Refresh P.M. (mineral oil-white petrolatum) ophthalmic ointment sennosides (Senokot) 8.6 MG tablet 1 (one) time each day at the same time valsartan-hydroCHLOROthiazide (Diovan-HCT) 320-12.5 MG tablet Take 1 tablet by mouth Daily venlafaxine (Effexor) 75 MG tablet Take 75 mg by mouth Daily venlafaxine XR (Effexor XR) 150 MG 24 hr capsule Take 150 mg by mouth Daily No current facility-administered medications on file prior to visit. Past Medical History: Diagnosis Date Parkinson disease ([facility]) Past Surgical History: Procedure Laterality Date APPENDECTOMY 20 years ago No family history on file. Social History Tobacco Use Smoking status: Never Smokeless tobacco: Never Substance Use Topics Alcohol use: Never ALLERGIES: Patient has no known allergies. REVIEW OF SYSTEMS: General: Appetite change: denies. Chills: denies. Fever: denies. Allergy/Immunology: Unusual rection to medications, food, animals or insects reaction: denies. Ophthalmologic: Visual acuity change: denies. ENT: Decreased hearing: denies. Endocrine: Weight loss: denies. Respiratory: Cough: denies. Wheezing: denies. Cardiovascular: Chest pain: denies. Palpitations: denies. Gastrointestinal: Abdominal pain: denies. Difficulty swallowing: denies Hematology: Bleeding problems: denies. Genitourinary: Painful urination: denies. Musculoskeletal: Joint pain: denies. Joint edema: denies. Skin: Rash: denies. Neurologic: Ataxia: denies, Tremor: denies. Psychiatric Anxiety: denies. Depression: denies. Insomnia: denies. Suicidal thoughts: denies. Also see HPI for elements of ROS documented therein and for details of positive findings, which shall supersede the foregoing. OBJECTIVE: Results Examination: General Exam: pleasant, well nourished, well developed, in no acute distress Head: normocephalic, atraumatic Eyes: extraocular movement intact (EOMI), pupils equal, round, reactive to light, upper eyelids normal , lower eyelids normal Ears: no obvious hearing deficit Nose: Nares patent Neck/Throat: neck supple, full range of motion Oral Cavity: mucosa moist Skin: warm and dry Heart: no murmurs, regular rate and rhythm, S1, S2 normal Lungs: clear to auscultation bilaterally, good air movement, no wheezes, rales, rhonci, speaks in full sentences Chest: normal shape and expansion Abdomen: bowel sounds present, soft, nontender, nondistended, no guarding or rigidity Extremities: no edema, no cyanosis Musculoskeletal: no swelling or deformity Neurologic: AAOx3, memory intact, fund of knowledge appropriate Naming and repetition intact, fluent language, follows 3-step commands Pupils equal and reactive EOM intact, no gaze preference or deviation, no nystagmus. Normal sensation in V1, V2, and V3 segments bilaterally No facial asymmetry, no nasolabial fold flattening Normal hearing to speech Normal palatal elevation, no uvular deviation Normal midline tongue protrusion 5/5 head turn and 5/5 shoulder shrug bilaterally 5/5 muscle power in bilateral shoulder abductors/adductors, elbow flexors/extensors, wrist flexors/extensors, finger abductors/adductors. 5/5 in bilateral hip flexors/extensors, knee flexors/extensors, ankle dorsiflexors and plantar flexors. Reflexes 2/4 throughout, bilateral flexor plantar response, no Rubin's, no clonus Sensation intact to touch, pinprick, vibration, and temperature in all limbs No hemineglect, no extinction to double sided stimulation (visual & tactile) Romberg absent Wheelchair Masked facies Bilateral hand apraxia No tremor Psych: pleasant, cooperative, good eye contact, speech clear, judgement and insight good ASSESSMENT/PLAN: Assessment & Plan 1. Parkinson's Disease. He reports no significant difference in symptoms whether on or off the medication. However, nursing staff have observed increased weakness and difficulty with transfers and lifting over the past month. A prescription for Sinemet 25/100 was provided, to be taken three times daily (morning, 11:30 AM, and 8:30 PM) on an empty stomach (30 minutes before or 2 hours after meals). The potential benefits and the importance of taking the medication on an empty stomach were discussed. He was informed that any improvement in symptoms would be noticeable immediately after taking the medication. Seizures: controlled Follow-up Return in 1 month for follow up. documented in this encounter [facility] 02-22-2024 History of Presen t illness Narrative Images from the original note were not included. CHIEF COMPLAINT: parkinsons HISTORY OF PRESENT ILLNESS: 83 year old male to follow up on parkinsons with nurse via telemedicine visit, verbal consent obtained. Patient stopped sinemet, no change or worsening sxs. Pivot transfers with staff, goes to [facility] 2[facility]3x[facility]week - uses exercise bike. Rarely has a tremor, not bothersome. Goes to bed about 630 pm. Sleeps well at night, denies hallucinations or difficulty swallowing. Last visit 01/28/24 NMF: Still exercising, no sz or night spells. Unclear if sinemet inc has made any difference. Tolerating. Says gets meds in am, then 1130a, then 830p. Current Outpatient Medications on File Prior to Visit Medication Sig Dispense Refill albuterol HFA 90 mcg/act inhaler Inhale 2 puffs every 4 (four) hours if needed for wheezing Ascorbic Acid (vitamin C) 500 MG tablet aspirin 81 MG EC tablet Take 81 mg by mouth Daily atorvastatin (Lipitor) 20 MG tablet Take 20 mg by mouth Daily carbidopa-levodopa (Sinemet) 25-100 MG tablet Take 2 tablet three times a day before meals 180 tablet 3 cholecalciferol (Vitamin D-3) 1.25 MG (27751 UT) capsule Take 50,000 Units by mouth donepezil (Aricept) 10 MG tablet Take 10 mg by mouth furosemide (Lasix) 20 MG tablet Take 20 mg by mouth Daily levETIRAcetam (Keppra) 750 MG tablet Take 750 mg by mouth in the morning and 750 mg before bedtime. loratadine (Claritin) 10 MG tablet Take 10 mg by mouth Daily Multiple Vitamin (Multivitamin Adult) tablet as directed Orally OLANZapine (ZyPREXA) 5 MG tablet Take 5 mg by mouth at bedtime phenytoin (Dilantin) 50 MG chewable tablet Chew 100 mg in the morning and 100 mg before bedtime. potassium chloride CR (Klor-Con M20) 20 MEQ ER tablet Refresh P.M. (mineral oil-white petrolatum) ophthalmic ointment sennosides (Senokot) 8.6 MG tablet 1 (one) time each day at the same time valsartan-hydroCHLOROthiazide (Diovan-HCT) 320-12.5 MG tablet Take 1 tablet by mouth Daily venlafaxine (Effexor) 75 MG tablet Take 75 mg by mouth Daily venlafaxine XR (Effexor XR) 150 MG 24 hr capsule Take 150 mg by mouth Daily No current facility-administered medications on file prior to visit. Past Medical History: Diagnosis Date Parkinson disease ([facility]) Past Surgical History: Procedure Laterality Date APPENDECTOMY 20 years ago No family history on file. Social History Tobacco Use Smoking status: Never Smokeless tobacco: Never Substance Use Topics Alcohol use: Never ALLERGIES: Patient has no known allergies. REVIEW OF SYSTEMS: General: Appetite change: denies. Chills: denies. Fever: denies. Allergy/Immunology: Unusual rection to medications, food, animals or insects reaction: denies. Ophthalmologic: Visual acuity change: denies. ENT: Decreased hearing: denies. Endocrine: Weight loss: denies. Respiratory: Cough: denies. Wheezing: denies. Cardiovascular: Chest pain: denies. Palpitations: denies. Gastrointestinal: Abdominal pain: denies. Difficulty swallowing: denies Hematology: Bleeding problems: denies. Genitourinary: Painful urination: denies. Musculoskeletal: Joint pain: denies. Joint edema: denies. Skin: Rash: denies. Neurologic: Ataxia: denies, Tremor: denies. Psychiatric Anxiety: denies. Depression: denies. Insomnia: denies. Suicidal thoughts: denies. Also see HPI for elements of ROS documented therein and for details of positive findings, which shall supersede the foregoing. OBJECTIVE: Objective There were no vitals filed for this visit. There is no height or weight on file to calculate BMI. Examination: General Exam: pleasant, well nourished, well developed, in no acute distress Eyes: extraocular movement intact (EOMI) upper eyelids normal , lower eyelids normal Neurologic: nonfocal, alert and oriented, cognitive exam grossly normal, cranial nerves 2-12 grossly intact - Exam limited d/t telemedicine Psych: pleasant, cooperative, good eye contact , speech clear , judgement and insight good ASSESSMENT/PLAN: 1. Parkinson's disease without dyskinesia, with fluctuating manifestations (CMS/HCC) Stopped sinemet, doing ok without medication, no changes, defers need to restart sinemet or start new medication Continue to increase activity/exercise daily 1. Partial symptomatic epilepsy with complex partial seizures, not intractable, 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) Continue keppra 750 mg bid, dilantin 50 mg- 2 tabs bid Last known seizure 45 years ago. Pt has been fully educated on their diagnosis, treatment options, follow up plan, and return instructions. documented in this encounter [facility] 01-28-2024 History of Presen t illness Narrative Images from the original note were not included. CHIEF COMPLAINT: parkinsons HISTORY OF PRESENT ILLNESS: Still exercising, no sz or night spells. Unclear if sinemet inc has made any difference. Tolerating. Says gets meds in am, then 1130a, then 830p. Last visit 12/11 mw: 83 year old male to follow up with nurse for parkinsons via telemedicine visit, verbal consent obtained. Last visit discussed increasing sinemet, would like to increase at this time to tid. Noted shuffling and freezing of gait with ambulation, was discharged from therapy, currently in restorative program now. No falls. All questions and concerns addressed. Last visit 11/08/23 NMF: 83 yo male last seen by MW 05/2019, for PD and SZ. Reports seizures in the past, 45 yrs ago. Unclear why he is here although nurses aide who is with him indicates he needs his pd meds checked. No falls. Good po intake Gaining weight, 15-20 lbs over 4 yrs Reports walks with walker daily more than 30 min daily, exercise bike twice per week (30 min total per week bike). He does have access to PT. Current Outpatient Medications on File Prior to Visit Medication Sig Dispense Refill Ascorbic Acid (vitamin C) 500 MG tablet aspirin 81 MG EC tablet Take 81 mg by mouth Daily atorvastatin (Lipitor) 20 MG tablet Take 20 mg by mouth Daily cholecalciferol (Vitamin D-3) 1.25 MG (67846 UT) capsule Take 50,000 Units by mouth donepezil (Aricept) 10 MG tablet Take 10 mg by mouth furosemide (Lasix) 20 MG tablet Take 20 mg by mouth Daily levETIRAcetam (Keppra) 750 MG tablet Take 750 mg by mouth in the morning and 750 mg before bedtime. loratadine (Claritin) 10 MG tablet Take 10 mg by mouth Daily Multiple Vitamin (Multivitamin Adult) tablet as directed Orally OLANZapine (ZyPREXA) 5 MG tablet Take 5 mg by mouth at bedtime phenytoin (Dilantin) 50 MG chewable tablet Chew 100 mg in the morning and 100 mg before bedtime. phenytoin ER (Dilantin) 100 MG capsule Take 100 mg by mouth in the morning and 100 mg before bedtime. potassium chloride CR (Klor-Con M20) 20 MEQ ER tablet Refresh P.M. (mineral oil-white petrolatum) ophthalmic ointment sennosides (Senokot) 8.6 MG tablet 1 (one) time each day at the same time valsartan-hydroCHLOROthiazide (Diovan-HCT) 320-12.5 MG tablet Take 1 tablet by mouth Daily venlafaxine (Effexor) 75 MG tablet Take 75 mg by mouth Daily venlafaxine XR (Effexor XR) 150 MG 24 hr capsule Take 150 mg by mouth Daily [DISCONTINUED] Sinemet 25-100 MG tablet Take 2 tablets by mouth in the morning and 2 tablets before bedtime. Past Medical History: Diagnosis Date Parkinson disease (CMS/HCC) Past Surgical History: Procedure Laterality Date APPENDECTOMY 20 years ago No family history on file. Social History Tobacco Use Smoking status: Never Smokeless tobacco: Never Substance Use Topics Alcohol use: Never ALLERGIES: Patient has no known allergies. REVIEW OF SYSTEMS: General: Appetite change: denies. Chills: denies. Fever: denies. Allergy/Immunology: Unusual rection to medications, food, animals or insects reaction: denies. Ophthalmologic: Visual acuity change: denies. ENT: Decreased hearing: denies. Endocrine: Weight loss: denies. Respiratory: Cough: denies. Wheezing: denies. Cardiovascular: Chest pain: denies. Palpitations: denies. Gastrointestinal: Abdominal pain: denies. Difficulty swallowing: denies Hematology: Bleeding problems: denies. Genitourinary: Painful urination: denies. Musculoskeletal: Joint pain: denies. Joint edema: denies. Skin: Rash: denies. Neurologic: Ataxia: denies, Tremor: denies. Psychiatric Suicidal thoughts: denies. Also see HPI for elements of ROS documented therein and for details of positive findings, which shall supersede the foregoing. OBJECTIVE: Objective Vitals: 01/28/24 0918 BP: 132/84 Pulse: 74 SpO2: 97% Height: 5' 8.5 There is no height or weight on file to calculate BMI. Examination: General Exam: pleasant, well nourished, well developed, in no acute distress Eyes: extraocular movement intact (EOMI) upper eyelids normal , lower eyelids normal Neurologic: nonfocal, alert and oriented, cognitive exam grossly normal, cranial nerves 2-12 grossly intact - Exam limited d/t telemedicine Psych: pleasant, cooperative, good eye contact , speech clear , judgement and insight good ASSESSMENT/PLAN: 1. Parkinson's disease without dyskinesia, with fluctuating manifestations (CMS/HCC) Increase sinemet 25/100 mg tid- currently takes at 0530, 1030, will start next dose about 3:30-4 pm before meals. Lays in bed about 6pm, sleeps before 8 pm. Continue to increase activity/exercise daily - carbidopa-levodopa (Sinemet) 25-100 MG tablet; Take 2 tablet three times a day before meals Dispense: 180 tablet; Refill: 3 Update: no clear benefit from sinemet. Ok to dc, can restart if he feels worse. 1. Partial symptomatic epilepsy with complex partial seizures, not intractable, 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) Continue keppra 750 mg bid, dilantin 50 mg- 2 tabs bid Last known seizure 45 years ago. documented in this encounter [facility] 01-28-2024 Instructions Kesha Mejia MD - 01/28/2024 9:20 AM EDT Discontinue sinemet, no clear benefit If worsens off sinemet, ok to restart, can be ordered by ri or facility physician documented in this encounter [facility] 10-10-2023 Note [facility] visit c ompleted by provider. See progress note in [facility] 09-05-2023 Note [facility] visit c ompleted by provider. See progress note in [facility] 08-08-2023 Note [facility] visit c ompleted by provider. See progress note in [facility] 07-11-2023 Note [facility] visit c ompleted by provider. See progress note in [facility] 06-05-2023 Note [facility] visit c ompleted by provider. See progress note in [facility] 05-09-2023 Note [facility] visit c ompleted by provider. See progress note in [facility] 04-10-2023 Note [facility] visit c ompleted by provider. See progress note in [facility] 03-07-2023 Note [facility] visit c ompleted by provider. See progress note in [facility] 02-06-2023 Note [facility] visit c ompleted by provider. See progress note in [facility] 01-02-2023 Note [facility] visit c ompleted by provider. See progress note in [facility] 11-29-2022 Note [facility] visit c ompleted by provider. See progress note in [facility] 10-25-2022 Note [facility] visit c ompleted by provider. 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, not intractable, 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) [facility] Diagnosis Parkinson's disease without dyskinesia, with fluctuating manifestations (CMS/HCC)- Primary Partial symptomatic epilepsy with complex partial seizures, not intractable, 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) [facility] Diagnosis Parkinson's disease without dyskinesia, with fluctuating manifestations (CMS/HCC)- Primary Partial symptomatic epilepsy with complex partial seizures, not intractable, 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) documented [facility] encounter [facility]* Diagnosis Parkinsonism, unspecified Parkinsonism type (HCC)- 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, without mention of intractable epilepsy 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) Dementia in conditions classified elsewhere without behavioral disturbance [facility] Diagnosis Parkinsonism, unspecified Parkinsonism type (HCC)- Primary documented in this encounter [facility] for referral (narrative)No reason for referral information availableWPomerene [facility] Work Phone: Summary Purpose Family History No Family History Records Found Relationship Condition Age at Onset Recorded Date/T randee Unknown Family History?Hypertension, - Unknown January 01, 2016 4:27pm Family History?Hypertension, - Unknown May 13, 2018 9:34pm Family History?Stroke Unknown Decemb er 2017 9:34pm Relationship Condition Age at Onset Recorded Date/T randee Unknown Family History?Hypertension, - Unknown January 01, 2016 3:27pm Family History?Hypertension, - Unknown May 13, 2018 8:34pm Family History?Stroke Unknown Decemb er 2017 8:34pm Advance Directives No Advanced Directives Records Found Advance Directive Response Recorded Date/ Time Advance Directives Yes June 04, 2016 3:44pm Living Will Yes May 13, 2 018 4:20pm Power of Clinic Coordinator Yes May 13, 2018 4:20pm Advance Directive Response Recorded Date/ Time Advance Directives Yes June 04, 2016 2:44pm Living Will Yes May 13, 2 018 3:20pm Power of Clinic Coordinator Yes May 13, 2018 3:20pm Documents on File Type Date Recorded 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 Advance Directives and Livin g Will 11/08/2023 3:33 PM DNR STATUS Advance Directive Response Recorded Date/ Time Advance Directives Yes June 04, 2016 3:44pm Chief Complaint and Reason for Visit Chief Complaint ALF LAB WOR K Chief Complaint LABWORK Chief Complaint LABWORK ALF LAB WORK Chief Complaint LABWORK ALF LABWORK Chief Complaint ALF LAB WOR K ALF LABWORK Chief Complaint ALF LABWORK ALF LAB WORK Chief Complaint ALF LAB WOR K ALF LAB WORK Chief Complaint Admit Date ALF LAB WORK June 10, 2024 5:00am ALF LAB WORK August 05, 2024 4 :00am Chief Complaint Admit Date ALF LAB WORK June 10, 2024 5:00am ALF LAB WORK August 05, 2024 4 :00am ALF LAB WORK August 06, 2024 1 :00am Chief Complaint Admit Date ALF LAB WORK June 10, 2024 5:00am ALF LAB WORK August 05, 2024 4 :00am ALF LAB WORK August 06, 2024 1 :00am LABWORK August 18, 2024 5:0 0am Chief Complaint Admit Date ALF LAB WORK June 10, 2024 5:00am ALF LAB WORK August 05, 2024 4 :00am ALF LAB WORK August 06, 2024 1 :00am LABWORK August 18, 2024 5:0 0am ALF LAB WORK August 28, 2024 5 :00am Chief Complaint Admit Date ALF LAB WORK August 05, 2024 4 :00am ALF LAB WORK August 06, 2024 1 :00am LABWORK August 18, 2024 5:0 0am ALF LAB WORK August 28, 2024 5 :00am LABWORK September 29, 2024 5:00a m Chief Complaint Admit Date ALF LAB WORK August 05, 2024 4 :00am ALF LAB WORK August 06, 2024 1 :00am LABWORK August 18, 2024 5:0 0am ALF LAB WORK August 28, 2024 5 :00am ALF LAB WORK September 16, 2024 4 :00am LABWORK September 29, 2024 5:00a m Additional Source Comments (unrecognized sect ion and content) No Status Records FoundNo Status Records FoundNo Status Records FoundNo Status Records FoundNo Status Records FoundNo Status Records Found INFORMATION SOURCE (unrecogn ized section and content) DATE CREATED AUTHOR 12/08/2019 [facility] DATE CREATED AUTHOR AUTHOR'S ORGANIZ ATION 10/13/2023 [facility] DATE CREATED AUTHOR AUTHOR'S ORGANIZ ATION 05/01/2024 [facility] DATE CREATED AUTHOR AUTHOR'S ORGANIZ ATION 12/11/[address] [facility] DATE CREATED AUTHOR AUTHOR'S ORGANIZ ATION 12/29/2024 [facility] DATE CREATED AUTHOR AUTHOR'S ORGANIZ ATION 01/16/2025 [facility] Goals (unrecognized section and content) Goals may be documented in a n alternate sectionGoals may be documented in an alternate sectionGoals may be documented in an alternate sectionGoals may be documented in an alternate sectionGoals may be documented in an alternate sectionGoals may be documented in an alternate sectionGoals may be documented in an alternate sectionGoals may be documented in an alternate sectionGoals may be documented in an alternate sectionGoals may be documented in an alternate sectionGoals may be documented in an alternate sectionGoals may be documented in an alternate sectionGoals may be documented in an alternate sectionGoals may be documented in an alternate sectionGoals may be documented in an alternate sectionGoals may be documented in an alternate section Care Teams (unrecognized sec tion and content) Team Status: Active Member Role Status Dates Dr. Zak Henry MD Family Provider Active Kirt PIERRE Primary Care Provider Active Team Status: Inactive Member Role Status Dates Kirt PIERRE Primary Care Provider Active Tran PIERRE MD Attending Provider Active Team Status: Inactive Member Role Status Dates Kirt PIERRE Primary Care Provider Active Zak PIERRE MD Attending Provider Active Team Status: Inactive Member Role Status Dates Kirt PIERRE Primary Care Provider Active Zak PIERRE MD Attending Provider, Referring P estevan Active Team Status: Active Member Role Status Dates Dr. 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 Start Date End Date Tran Bruce Sr., MD [address] [place] [phone] PCP - General Internal Medicine 11/08/23 Pack Puller Relationship Specialty Start Date End Date Tran Bruce Sr., MD [address] [place] [phone] PCP - General Internal Medicine 11/08/23 Pack Puller Relationship Specialty Start Date End Date Tran Bruce Sr., MD [address] [place] [phone] PCP - General Internal Medicine 11/08/23 Pack Puller Relationship Specialty Start Date End Date Tran Bruce Sr., MD [address] [place] [phone] PCP - General Internal Medicine 11/08/23 Pack Puller Relationship Specialty Start Date End Date Tran Bruce Sr., MD [address] [place] [phone] PCP - General Internal Medicine 11/08/23 Pack Puller Relationship Specialty Start Date End Date Tran Bruce Sr., MD [address] [place] [phone] PCP - General Internal Medicine 11/08/23 Pack Puller Relationship Specialty Start Date End Date Tran Bruce Sr., MD [address] [place] [phone] PCP - General Internal Medicine 11/08/23 Team Status: Active Member Role Status Dates Zak PIERRE MD Primary Care Provider Active Start: June 10, 2024 Tran PIERRE MD Attending Provider Active S tart: June 10, 2024 Team Status: Inactive Member Role Status Dates Zak PIERRE MD Primary Care Provider Active Start: August 05, 2024 End: August 05, 2024 Tran PIERRE MD Attending Provider Active S tart: August 05, 2024 End: August 05, 2024 Tran PIERRE MD Referring Provider Active S tart: August 05, 2024 End: August 05, 2024 Team Status: Active Member Role Status Beba PIERRE MD Primary Care Provider Active Start: August 06, 2024 Tran PIERRE MD Attending Provider Active S tart: August 06, 2024 Team Status: Active Member Role Status Beba PIERRE MD Primary Care Provider Active Start: August 18, 2024 Tran PIERRE MD Attending Provider Active S tart: August 18, 2024 Team Status: Inactive Member Role Status Beba PIERRE MD Primary Care Provider Active Start: August 06, 2024 End: August 06, 2024 Tran PIERRE MD Attending Provider Active S tart: August 06, 2024 End: August 06, 2024 Team Status: Inactive Member Role Status Beba PIERRE MD Primary Care Provider Active Start: August 18, 2024 End: August 18, 2024 Tran PIERRE MD Attending Provider Active S tart: August 18, 2024 End: August 18, 2024 Team Status: Active Member Role Status Beba PIERRE MD Primary Care Provider Active Start: August 28, 2024 Tran PIERRE MD Attending Provider Active S tart: August 28, 2024 Team Status: Inactive Member Role Status Beba PIERRE MD Primary Care Provider Active Start: August 28, 2024 End: August 28, 2024 Tran PIERRE MD Attending Provider Active S tart: August 28, 2024 End: August 28, 2024 Team Status: Active Member Role Status Beba PIERRE MD Primary Care Provider Active Start: September 16, 2024 Tran PIERRE MD Attending Provider Active S tart: September 16, 2024 Team Status: Active Member Role Status Beba PIERRE MD Primary Care Provider Active Start: September 24, 2024 Tran PIERRE MD Attending Provider Active S tart: September 24, 2024 Team Status: Active Member Role Status Beba PIERRE MD Primary Care Provider Active Start: September 26, 2024 Tran PIERRE MD Attending Provider Active S tart: September 26, 2024 Team Status: Inactive Member Role Status Beba PIERRE MD Primary Care Provider Active Start: September 29, 2024 End: September 29, 2024 Tran PIERRE MD Attending Provider Active S tart: September 29, 2024 End: September 29, 2024 Team Status: Inactive Member Role Status Beba PIERRE MD Primary Care Provider Active Start: September 16, 2024 End: September 16, 2024 Tran PIERRE MD Attending Provider Active S tart: September 16, 2024 End: September 16, 2024 Tran PIERRE MD Referring Provider Active S tart: September 16, 2024 End: September 16, 2024 Pack Puller Relationship Specialty Start Date End Date Tran Lambert Sr. [address] [place] [phone] PCP - General Internal Medicine 12/15/24 Pack Puller Relationship Specialty Start Date End Date Tran Lambert Sr. [address] [place] [phone] PCP - General Internal Medicine 12/15/24 Pack Puller Relationship Specialty Start Date End Date Tran Lambert Sr. [address] [place] [phone] PCP - General Internal Medicine 12/15/24 Reason for Visit (unrecogniz ed section and content) Reason Comments Parkinson's Disease Reason Comments Seizures Reason Comments Consult Reason Comments Medication Question Reason Comments Medication Question Source Comments (unrecognize d section and content) In the event this informatio n is protected by the Federal Confidentiality of Alcohol and Drug Abuse Patient Records regulations: The Federal rules restrict any use of the information to criminally investigate or prosecute any alcohol or drug abuse patient.[facility] the event this information is protected by the Federal Confidentiality of Alcohol and Drug Abuse Patient Records regulations: The Federal rules restrict any use of the information to criminally investigate or prosecute any alcohol or drug abuse patient.[facility] Hospital[facility] the event this information is protected by the Federal Confidentiality of Alcohol and Drug Abuse Patient Records regulations: The Federal rules restrict any use of the information to criminally investigate or prosecute any alcohol or drug abuse patient.[facility] FOR RECORDS PERTAINING TO PATIENTS WHO ARE OR HAVE BEEN ENROLLED IN A CHEMICAL DEPENDENCY/SUBSTANCEABUSE PROGRAM, SOME INFORMATION MAY BE OMITTED. This clinical summary was aggregated from multiple sources. Caution should be exercised in using it in the provision of clinical care. This summary normalizes information from multiple sources, and as a consequence, information in this document may materially change the coding, format and clinical context of patient data. In addition, data may be omitted in some cases. CLINICAL DECISIONS SHOULD BE BASED ON THE PRIMARY CLINICAL RECORDS. [facility] [employer] [facility]. provides no warranty or guarantee of the accuracy or completeness of information in this document.
[2025-05-12 08:15] LABS: Hematocrit 40.5 % (40-54); Hemoglobin 13.7 g/dL (13.0-16.5); Immature Granulocytes Count 0.020 X10^3/uL (0.0-0.0); Mean Corp Hgb Conc 33.8 g/dL (32-36); Mean Corpuscular Volume 97.8 fL (80-94); Mean Platelet Vol. 9.7 fl (6.2-12.0); NRBC Flagged by Analyzer 0 % (0-5); Platelet Count 209 K/mm3 (150-450); RBC Distribution Width CV 12.3 % (11.6-14.6); RBC Distribution Width SD 44.6 fl (35.1-43.9); Red Blood Count 4.14 M/mm3 (4.6-6.2); White Blood Count 6.8 K/mm3 (4.4-11.0)
[2025-05-12 08:36] LABS: AST(SGOT) 24 U/L (<=37); Alanine Aminotransfer ALT/SGPT 7 U/L (<=46); Albumin, Serum 3.5 g/dL (3.4-4.8); Alkaline Phosphatase 101 U/L (40-129); Anion Gap 8 (7-18); BUN 24 mg/dL (4-19); BUN/Creat Ratio 18.0 RATIO (10-20); Calcium,Total 10.4 mg/dL (7.6-11.0); Carbon Dioxide 31.8 mmol/L (20.0-29.0); Chloride 99 mmol/L (96-106); Globulin 3.1 g/dL (2.2-4.2); Glucose 98 mg/dL (70-99); Potassium 3.6 mmol/L (3.5-5.1)
[2025-05-15 10:07] LABS: KEPPRA (LEVETIRACETAM) 39.6 ug/mL (10.0-40.0)
== END ==
LOC: OLS.ACH 05:00
PROVIDERS: PCP Family Medicine; Visit Provider Internal Medicine
DX: G40.109 Localization-related (focal) (partial) symptomatic epilepsy and epileptic syndromes with simple partial seizures, not intractable, without status epilepticus (principal)
CPT/HCPCS: 36415; 80053; 80177; 80185; 85025